=== PATIENT | female | born 1930 | race Caucasian/White ===

== ENCOUNTER 2016-10-06 16:41 | Inpatient (IN) | payer MEDICARE, OTHER ==
[~2016-10-06] VITALS: Ht 144.8 cm; Wt 86.2 kg
[2016-10-06] MEDS ORDERED: DIPHTH,PERTUSS(ACELL),TET TOX 0.5 ML DISP.SYRIN. VAX IM ONE (17:00)
[2016-10-06] MEDS ORDERED: LIDOCAINE 1% / SOD BICARB 8.4% 20 ML VIAL. IJ ONE (17:00)
[2016-10-06 17:18] LABS: BASO % 1 % (0-3); EOS % 2 % (0-3); HEMATOCRIT 26.6 % (36.0-47.0); HEMOGLOBIN 8.6 g/dL (12.0-15.5); LYMPH # 1.2 x10^3/uL (1.0-4.8); LYMPH % 23 % (24-48); MEAN CORPUSCULAR HEMOGLOBIN 30 pg (25-35); MEAN CORPUSCULAR HGB CONC 32 g/dL (31-37); MEAN CORPUSCULAR VOLUME 92 fL (79-100); MONO % 10 % (0-9); NEUT % 64 % (31-73); PLATELET COUNT 232 x10^3/uL (140-400); RED CELL DISTRIBUTION WIDTH 14.9 % (11.5-14.5); WHITE BLOOD COUNT 5.2 x10^3/uL (4.0-11.0)
[2016-10-06 17:27] LABS: PROTHROMBIN TIME PATIENT 12.5 SEC (11.7-14.0)
--- NOTE | 2016-10-06 17:28 | RAD ---
PROCEDURE Head and cervical spine CT without contrast. HISTORY Fall from standing. TECHNIQUE Computed tomographic images of the head and cervical spine were obtained without contrast. One or more of the following individualized dose reduction techniques were utilized for this examination: 1. Automated exposure control; 2. Adjustment of the mA and/or kV according to patient size; 3. Use of iterative reconstruction technique. COMPARISON None. FINDINGS Head: There is no acute or subacute hemorrhage. There is no mass effect or midline shift. There is no hydrocephalus. 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 There are scattered areas of hypodensity throughout the cerebral white matter, likely due to chronic small vessel disease. There is cerebral atrophy with compensatory enlargement of the ventricles. There are findings consistent with lens surgery. 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 The mastoid air cells are clear. There is a suspected soft tissue laceration within the right frontal scalp. No foreign body is seen. Cervical spine: There is mild cervical kyphosis and minimal listhesis at multiple levels. There is degenerative endplate remodeling with disc space narrowing, osteophytosis and Schmorl's node formation predominately at C3-C4, C5-C6 and C6-C7. There is facet arthropathy at multiple levels, described in detail below. There is a chronic ununited osteophyte along the posterior left C4-C5 facet. No acute fracture is seen. There is calcified plaque within the carotid bifurcations. There is calcified plaque within the aortic arch great vessels. There is pulmonary emphysema. At C2-C3, there is endplate remodeling. There is moderate left facet arthropathy. There is mild left foraminal stenosis. At C3-C4, there is a disc bulge and endplate osteophytosis. There is mild bilateral facet arthropathy. There is uncovertebral arthropathy. There is moderate bilateral foraminal stenosis. At C4-C5, there is a disc bulge and endplate remodeling. There is mild left facet arthropathy. There is left uncovertebral arthropathy. There is mild left foraminal stenosis. At C5-C6, there is a broad-based posterior central disc protrusion superimposed on a disc bulge and endplate osteophytosis. There is mild facet arthropathy. There is uncovertebral arthropathy. There is moderate bilateral foraminal stenosis. There is mild central canal stenosis. At C6-C7, there is a disc bulge and endplate osteophytosis. There is uncovertebral arthropathy. There is mild right and moderate left foraminal stenosis. IMPRESSION 1. Suspected right frontal scalp laceration. There is no evidence of a retained foreign body or underlying fracture or acute intracranial finding. 2. Scattered areas of hypodensity within the cerebral white matter, likely due to chronic small vessel disease. 3. 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 4. Cerebral volume loss. 5. 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 Electronically signed by: Rae Welch (Oct 06, 2016 17:26:12)
[2016-10-06] MEDS ORDERED: IV NORMAL SALINE 500ML BAG 500 ML IV ONE (17:45)
[2016-10-06] MEDS ORDERED: IV NORMAL SALINE 1000ML BAG 1,000 ML IV ONE (20:00)
[2016-10-06] MEDS ORDERED: ONDANSETRON PF 4 MG/2 ML VIAL. IV PRN (20:00)
--- NOTE | 2016-10-06 20:06 | PHYS DOC ---
Past Medical History Past Medical History: CAD, Diabetes-Type II, Hypertension, Hypothyroid Past Surgical History: Angioplasty, Appendectomy, Coronary Bypass Surgery, Other Additional Past Surgical Histo: STENT PLACEMENT Alcohol Use: None Drug Use: None Adult General Chief Complaint Chief Complaint: LACERATION/AVULSION HPI HPI This is an 86-year-old female who states she was out in her garden today and had a fall from standing height in which she fell on her face and scraped her right side of the face with a rock and has a extensive laceration extending from her right forehead down to her right cheek. She does states she had some loss of consciousness that was minimal C-collar was placed on the patient upon arrival. A trauma alert was made. Patient does take aspirin daily but is not on any other blood thinners. She does report that she's had worsening shortness of breath for the last week and has seen Dr. Arellano in the office who found her to have a relatively low O2 saturation in the mid 80s. Her Lasix dose has been recently increased. She does report she has had some worsening shortness of breath with minimal exertion for the past week and has had another fall within the last several weeks that she attributes this to her breathing. Upon arrival, the patient is requiring supplemental oxygen which is not normal for her. She denies any chest pain. She denies any significant headache. Review of Systems Review of Systems Constitutional: Denies fever or chills [] Eyes: Denies change in visual acuity, redness, or eye pain [] HENT: Denies nasal congestion or sore throat [] Respiratory: Denies cough, has shortness of breath [] Cardiovascular: No additional information not addressed in HPI [] GI: Denies abdominal pain, nausea, vomiting, bloody stools or diarrhea [] : Denies dysuria or hematuria [] Musculoskeletal: Denies back pain or joint pain [] Integument: Denies rash or skin lesions [] Neurologic: Denies headache, focal weakness or sensory changes [] Endocrine: Denies polyuria or polydipsia [] Current Medications Current Medications Current Medications Medications (Trade) Dose Ordered Sig/Aquiles Start Time Stop Time Status Last Admin Dose Admin Diphtheria/ Tetanus/Acell Pertussis 0.5 ml 0.5 ml ONCE ONCE 10/06/16 17:00 10/06/16 17:01 DC 10/06/16 17:49 0.5 ML Lidocaine/Sodium Bicarbonate (Buffered Lidocaine 1%) 20 ml 1X ONCE 10/06/16 17:00 10/06/16 17:01 DC 10/06/16 17:50 20 ML Sodium Chloride (Iv Sodium Chloride 0.9% 500ml Bag) 500 ml @ 500 mls/hr 1X ONCE 10/06/16 17:45 10/06/16 18:44 DC 10/06/16 17:51 500 MLS/HR Allergies Allergies Allergies Coded Allergies Type Severity Reaction Last Updated Verified No Known Drug Allergies 04/07/15 No Physical Exam Physical Exam Constitutional: Well developed, well nourished, no acute distress, non-toxic appearance. [] HENT: Normocephalic, large linear facial laceration extending from forehead to the cheek that is open at two separate points with the bleeding controlled, bilateral external ears normal, oropharynx moist, no oral exudates, nose normal. [] Eyes: PERRLA, EOMI, conjunctiva normal, no discharge. [] Neck: Normal range of motion, no tenderness, supple, no stridor. [] Cardiovascular:Heart rate regular rhythm, no murmur [] Lungs & Thorax: Bilateral breath sounds clear to auscultation [] Abdomen: Bowel sounds normal, soft, no tenderness, no masses, no pulsatile masses. [] Skin: Warm, dry, no erythema, no rash. [] Back: No tenderness, no CVA tenderness. [] Extremities: No tenderness, no cyanosis, no clubbing, ROM intact, no edema. [] Neurologic: Alert and oriented X 3, normal motor function, normal sensory function, no focal deficits noted. [] Psychologic: Affect normal, judgement normal, mood normal. [] Current Patient Data Vital Signs Vital Signs Date Time Temp Pulse Resp B/P Pulse Ox O2 Delivery O2 Flow Rate FiO2 10/06/16 19:00 66 17 133/53 94 10/06/16 17:30 Room Air 10/06/16 17:00 2 10/06/16 16:55 97.8 97.8 Lab Values Laboratory Tests Test 10/06/16 16:57 White Blood Count 5.2x10^3/uL (4.0-11.0) Red Blood Count 2.90x10^6/uL (3.50-5.40) L Hemoglobin 8.6g/dL (12.0-15.5) L Hematocrit 26.6% (36.0-47.0) L Mean Corpuscular Volume 92fL (79-100) Mean Corpuscular Hemoglobin 30pg (25-35) Mean Corpuscular Hemoglobin Concent 32g/dL (31-37) Red Cell Distribution Width 14.9% (11.5-14.5) H Platelet Count 232x10^3/uL (140-400) Neutrophils (%) (Auto) 64% (31-73) Lymphocytes (%) (Auto) 23% (24-48) L Monocytes (%) (Auto) 10% (0-9) H Eosinophils (%) (Auto) 2% (0-3) Basophils (%) (Auto) 1% (0-3) Neutrophils # (Auto) 3.3x10^3uL (1.8-7.7) Lymphocytes # (Auto) 1.2x10^3/uL (1.0-4.8) Monocytes # (Auto) 0.5x10^3/uL (0.0-1.1) Eosinophils # (Auto) 0.1x10^3/uL (0.0-0.7) Basophils # (Auto) 0.0x10^3/uL (0.0-0.2) Prothrombin Time 12.5SEC (11.7-14.0) Prothrombin Time INR 1.0 (0.8-1.1) Sodium Level 134mmol/L (136-145) L Potassium Level 3.8mmol/L (3.5-5.1) Chloride Level 96mmol/L (98-107) L Carbon Dioxide Level 29mmol/L (21-32) Anion Gap 9 (6-14) Blood Urea Nitrogen 47mg/dL (7-20) H Creatinine 1.9mg/dL (0.6-1.0) H Estimated GFR (Cockcroft-Gault) 25.1 Glucose Level 191mg/dL (70-99) H Calcium Level 9.9mg/dL (8.5-10.1) Troponin I Quantitative < 0.017ng/mL (0.000-0.055) MQ-Fbj-E-Type Natriuretic Peptide 8182pg/mL (0-449) H Laboratory Tests 10/06/16 16:57 Laboratory Tests 10/06/16 16:57 EKG EKG EKG as interpreted by va shows a sinus rhythm with a rate of 67 bpm. There are no obvious ischemic findings. There is a leftward axis. QTc interval slightly prolonged at 466 ms. Radiology/Procedures Radiology/Procedures PROCEDURE Head and cervical spine CT without contrast. HISTORY Fall from standing. TECHNIQUE Computed tomographic images of the head and cervical spine were obtained without contrast. One or more of the following individualized dose reduction techniques were utilized for this examination: 1. Automated exposure control; 2. Adjustment of the mA and/or kV according to patient size; 3. Use of iterative reconstruction technique. COMPARISON None. FINDINGS Head: There is no acute or subacute hemorrhage. There is no mass effect or midline shift. There is no hydrocephalus. 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 There are scattered areas of hypodensity throughout the cerebral white matter, likely due to chronic small vessel disease. There is cerebral atrophy with compensatory enlargement of the ventricles. There are findings consistent with lens surgery. 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 The mastoid air cells are clear. There is a suspected soft tissue laceration within the right frontal scalp. No foreign body is seen. Cervical spine: There is mild cervical kyphosis and minimal listhesis at multiple levels. There is degenerative endplate remodeling with disc space narrowing, osteophytosis and Schmorl's node formation predominately at C3-C4, C5-C6 and C6-C7. There is facet arthropathy at multiple levels, described in detail below. There is a chronic ununited osteophyte along the posterior left C4-C5 facet. No acute fracture is seen. There is calcified plaque within the carotid bifurcations. There is calcified plaque within the aortic arch great vessels. There is pulmonary emphysema. At C2-C3, there is endplate remodeling. There is moderate left facet arthropathy. There is mild left foraminal stenosis. At C3-C4, there is a disc bulge and endplate osteophytosis. There is mild bilateral facet arthropathy. There is uncovertebral arthropathy. There is moderate bilateral foraminal stenosis. At C4-C5, there is a disc bulge and endplate remodeling. There is mild left facet arthropathy. There is left uncovertebral arthropathy. There is mild left foraminal stenosis. At C5-C6, there is a broad-based posterior central disc protrusion superimposed on a disc bulge and endplate osteophytosis. There is mild facet arthropathy. There is uncovertebral arthropathy. There is moderate bilateral foraminal stenosis. There is mild central canal stenosis. At C6-C7, there is a disc bulge and endplate osteophytosis. There is uncovertebral arthropathy. There is mild right and moderate left foraminal stenosis. IMPRESSION 1. Suspected right frontal scalp laceration. There is no evidence of a retained foreign body or underlying fracture or acute intracranial finding. 2. Scattered areas of hypodensity within the cerebral white matter, likely due to chronic small vessel disease. 3. 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 4. Cerebral volume loss. 5. 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 One view of the chest as interpreted by me shows a hazy left-sided cardiac silhouette that could be consistent with infiltrate but no other obvious findings as interpreted by me. Course & Med Decision Making Course & Med Decision Making Pertinent Labs and Imaging studies reviewed. (See chart for details) This 86-year-old female with worsening dyspnea for the last several days and a recent fall will be admitted to the hospital as she desaturates when she ambulates into the low 70s. A dose of IV Lasix was given. Her chest film does show a hazy area that could be an infiltrate. I ordered several doses of antibiotics for this. I discussed her case and the need for admission with the hospitalist, Dr. Farias, who agreed to admit with pulmonology consult. A cardiology consult will also be placed. Her facial laceration was repaired with 12 5-0 sutures with excellent approximation. Her BNP is elevated in the 8000 range which is consistent with mild CHF exacerbation. Dragon Disclaimer Dragon Disclaimer This electronic medical record was generated, in whole or in part, using a voice recognition dictation system. Laceration Repair Lac Repair Indication: Facial laceration Procedure: The patient was placed in the appropriate position and 1% lidocaine was infiltrated at the wound site. The area was then cleansed with normal saline The laceration was then closed with simple interrupted technique with 12 5-0 nylon sutures. The wound area was then dressed with gauze. Total repaired wound length: 6.0 cm. Other Items: None The patient tolerated the procedure well. Complications: None. Departure Departure Impression: Primary Impression: Hypoxia Additional Impressions: Fall Head injury CHF exacerbation Disposition: 09 ADMITTED INPATIENT Admitting Physician: Ramakrishna Farias Condition: STABLE Referrals: CIERRA ARELLANO MD (PCP) Problem Qualifiers TAMMY CONTRERAS DO Oct 06, 2016 20:06
[2016-10-06] MEDS ORDERED: AZITHROMYCIN 500 MG in IV NORMAL SALINE 250ML 250 ML IV ONE (20:45)
[2016-10-06] MEDS ORDERED: AZITHRMYCN 500MG IVPB FOR OMNI 250 ML IV ONE (21:00)
[2016-10-06] MEDS ORDERED: CEFTRIAXONE 1GM IVPB FOR OMNI 50 ML IV ONE (21:00)
[2016-10-06] MEDS ORDERED: FUROSEMIDE 40 MG/4 ML VIAL. IVP ONE (21:15)
[2016-10-06 21:57] VITALS: BP 122/62
--- NOTE | 2016-10-06 22:29 | ACF ---
Admission Forms Criteria TELEMETRY CARE Telemetry Admission Guidelines (Place 'X' for any and all applicable criteria): Admission to telemetry [A] may be indicated for ANY ONE of the following(1)(2)(3 )(4)(5): [ ]I. Cardiac disease, including ANY ONE of the following (9)(10)(11)(12)(13 ): [ ]a) Postacute PA [ ]b) Low-risk patients with ST-segment elevation PA who have undergone successful percutaneous coronary intervention [ ]c) Unstable angina [ ]d) Suspected PA (until it is ruled out) [ ]e) Post cardiac surgery (first 48 to 72 hours unless complications occur) [ ]f) Acute arrhythmias (including significant tachycardia or bradycardia) [B] [ ]g) Firing of an implantable cardioverter defibrillator [C] [ ]h) Suspected pacemaker or implantable cardioverter defibrillator malfunction (10) [ ]i) New administration or adjustment of an antiarrhythmic drug [D ] [ ]j) Child admitted for acute congestive heart failure [ ]j) Long QT syndrome [ ]k) Advanced heart block (eg, second-degree Mobitz type II, third- degree heart block) [ ]l) Acute myocarditis or pericarditis [ ]m) Short-term (ambulatory or inpatient) monitoring after a cardiac procedure as indicated by ANY ONE of the following [E]: [ ]i) Electrophysiologic studies [ ]ii) Percutaneous coronary intervention with stent placement [ ]iii) Pacemaker placement with cardiac conduction defect [ ]iv) Implantable cardiac defibrillator placement [ ]II. Drug overdose or poisoning with substance that causes arrhythmias or QT prolongation (eg, phenothiazines, sympathomimetic agents, cyclic antidepressants, digitalis, antiarrhythmic drugs)(15) [ ]III. Short-term (ambulatory or inpatient) monitoring after therapeutic or diagnostic procedure requiring conscious sedation or anesthesia (eg, endoscopy, elective cardioversion) [X]IV. Acute cerebrovascular even[F](18) [ ]V. Massive blood transfusion (eg, at least 10 units of packed red blood cells in 24 hours) [ ]. Variceal bleeding after endoscopy, sclerotherapy, or IV vasopressin [ ]VII. Uncorrected electrolyte abnormalities associated with an increased risk of dangerous arrhythmia [G]; examples include [ ]a) Hyperkalemia with attributable ECG changes [ ]b) Potassium greater than 6.5 mmol/L (mEq/L) in a patient without history of chronic renal disease [ ]c) Prolonged QT attributed to hypokalemia, hypomagnesemia, or hypocalcemia [ ]VIII.Unexplained syncope or other neurologic event suspected of being due to arrhythmia due to a finding that increases risk; examples include(19)(20)(21): [ ]a) High-risk ECG findings (eg, bifascicular block, bradycardia, abnormal QT interval, ventricular pre- excitation) [ ]b) History of previous syncope due to arrhythmia [ ]c) Abnormal ventricular function (eg, reduced ejection fraction ) [ ]d) Exertional or supine syncope [ ]e) Concerning syncope characteristics (eg, sudden loss of consciousness without prodrome) [ ]f) Family history of sudden [ ]g) Use of arrhythmogenic medication [ ]h) Suspected cardiac ischemia [ ]i) Known channelopathy (eg, long QT syndrome, Brugada syndrome, or catecholaminergic paroxysmal ventricular tachycardia) [ ]j) Known structural heart disease (eg, hypertrophic cardiomyopathy , severe valvular disease) [ ]k) Palpitations preceding syncope The original [employer] content created by [employer] has been revised. The portions of the content which have been revised are identified through the use of italic text or in bold, and [facility] has neither reviewed nor approved the modified material. All other unmodified content is copyright [employer]. Please see references footnoted in the original [employer] edition 2016 Admission Criteria Met?: Yes ASH TRIANA Oct 06, 2016 22:29
[2016-10-06 23:34] VITALS: BP 102/51
[2016-10-07] MEDS: IV NORMAL SALINE 1000ML BAG 1,000 ML IV SCH ×3 (00:05→11:59)
[2016-10-07 03:00] VITALS: BP 95/46
[2016-10-07 04:24] LABS: BASO % 0 % (0-3); EOS % 1 % (0-3); HEMATOCRIT 24.3 % (36.0-47.0); HEMOGLOBIN 8.2 g/dL (12.0-15.5); LYMPH # 1.8 x10^3/uL (1.0-4.8); LYMPH % 24 % (24-48); MEAN CORPUSCULAR HEMOGLOBIN 30 pg (25-35); MEAN CORPUSCULAR HGB CONC 34 g/dL (31-37); MEAN CORPUSCULAR VOLUME 90 fL (79-100); MONO % 8 % (0-9); NEUT % 66 % (31-73); PLATELET COUNT 203 x10^3/uL (140-400); RED BLOOD COUNT 2.69 x10^6/uL (3.50-5.40); RED CELL DISTRIBUTION WIDTH 14.4 % (11.5-14.5); WHITE BLOOD COUNT 7.5 x10^3/uL (4.0-11.0)
[2016-10-07 04:35] LABS: CALCIUM 9.5 mg/dL (8.5-10.1); CREATININE 1.7 mg/dL (0.6-1.0); GFR 28.6; POTASSIUM 3.7 mmol/L (3.5-5.1)
[2016-10-07] MEDS ORDERED: INSU100V5 IJ (04:47)
[2016-10-07] MEDS ORDERED: NPH,100V SQ ×2 (04:47→04:48)
[2016-10-07] MEDS ORDERED: CHOL100013 PO (04:47)
[2016-10-07] MEDS ORDERED: ASPI81TA2 PO (04:47)
[2016-10-07] MEDS ORDERED: OMEG1CAP61 (04:47)
[2016-10-07] MEDS ORDERED: LOSA100T6 PO (04:48)
[2016-10-07] MEDS ORDERED: ATOR40TA59 PO (04:48)
[2016-10-07] MEDS ORDERED: METO50TA2 PO (04:48)
[2016-10-07] MEDS ORDERED: PIOG30TA3 PO (04:48)
[2016-10-07] MEDS ORDERED: BUME2TAB PO (04:48)
[2016-10-07] MEDS ORDERED: POTA99TA10 PO (04:48)
[2016-10-07] MEDS ORDERED: AMLO5TAB2 PO (04:48)
[2016-10-07 07:00] VITALS: BP 99/41
--- NOTE | 2016-10-07 08:29 | EKG ---
[facility] [address] [place] [address] Test Date: 2016-10-06 Test Time: 17:35:38 Pat Name: CLATYON LAKE Department: Room: 402 1 Gender: F [employer]: : [id number] Requested By: TAMMY CONTRERAS Order Number: [id number] Reading MD: Ronda Eid Measurements Intervals [place] Rate: 67 P: 49 RI: 154 QRS: -24 QRSD: 116 T: 154 QT: 438 QTc: 466 Interpretive Statements SINUS RHYTHM LEFTWARD AXIS LVH WITH REPOLARIZATION ABNORMALITY Electronically Signed On 10-11-2016 13:03:56 CDT by Ronda Eid
--- NOTE | 2016-10-07 08:38 | PDOC2 ---
MAGDALENE SPIVEY WIRE DRAWING MACHINE OPERATOR 10/07/16 0838: CONSULT Date of Consult Date of Consult DATE: 10/07/16 TIME: 08:32 Reason for Consult Reason for Consult: Trauma Referring Physician Referring Physician: ER Identification/Chief Complaint Chief Complaint fall Source Source: Chart review, Patient History of Present Illness Reason for Visit: Yesterday pulling weeds in flower bed, dizzy and fell, hit head on a rock. Significant amount of bleeding. Denies any LOC. Currently denies any pain or nausea. Hoping to go home soon. Reports fell once a few weeks ago in her house. She does report increased SOA over last few weeks Past Medical History Cardiovascular: CAD, CHF, HTN, MA Endocrine: Diabetes, Hypothyroidism Past Surgical History Past Surgical History: Appendectomy, CABG Family History Family History: Other (nonocontributory to current illness ) Social History No ALCOHOL: none Drugs: None Lives: with Family Current Problem List Problem List Problems Medical Problems: (1) CHF exacerbation Status: Acute (2) Fall Status: Acute (3) Head injury Status: Acute (4) Hypoxia Status: Acute Current Medications Current Medications Current Medications Lidocaine/Sodium Bicarbonate (Buffered Lidocaine 1%) 20 ml 1X ONCE IJ Last administered on 10/06/16 17:50; Start 10/06/16 at 17:00; Stop 10/06/16 at 17:01 ; Status DC Diphtheria/ Tetanus/Acell Pertussis 0.5 ml 0.5 ml ONCE ONCE VAX IM Last administered on 10/06/16 17:49; Start 10/06/16 at 17:00; Stop 10/06/16 at 17:01 ; Status DC Sodium Chloride 500 ml @ 500 mls/hr 1X ONCE IV Last administered on 17:51; Start 10/06/16 at 17:45; Stop 10/06/16 at 18:44; Status DC Sodium Chloride (Iv Sodium Chloride 0.9% 1000ml Bag) 1,000 ml @ 1,000 mls/hr 1X ONCE IV ; Start 10/06/16 at 20:00; Stop 10/06/16 at 20:59; Status DC Ondansetron HCl 4 mg 4 mg PRN Q8HRS PRN IV NAUSEA/VOMITING; Start 10/06/16 at 20:00; Stop 10/07/16 at 19:59 Sodium Chloride 1,000 ml @ 125 mls/hr Q8H IV Last administered on 10/07/16 00 :05; Start 10/06/16 at 19:59; Stop 10/07/16 at 19:58 Ceftriaxone Sodium 1 gm/ Sodium Chloride 50 ml @ 100 mls/hr Q24H IV ; Start at 21:00 Azithromycin/ Sodium Chloride (Zithromax/Iv Sodium Chloride 0.9% 250ml) 250 ml @ 250 mls/hr 1X ONCE IV ; Start 10/06/16 at 20:45; Stop 10/06/16 at 21:44; Status UNV Furosemide 40 mg 40 mg 1X ONCE IVP ; Start 10/06/16 at 21:15; Stop 10/06/16 at 21:16; Status DC Azithromycin 250 ml @ 250 mls/hr 1X ONCE IV Last administered on 10/07/16 01 :19; Start 10/06/16 at 21:00; Stop 10/06/16 at 21:59; Status DC Ceftriaxone Sodium (Rocephin 1gm Ivpb For Omni) 50 ml @ 100 mls/hr 1X ONCE IV Last administered on 10/07/16 00:05; Start 10/06/16 at 21:00; Stop 10/06/16 at 21:29; Status DC Active Scripts Active Reported Potassium 99 Mg Tablet 90 Mg PO DAILY Atorvastatin Calcium 40 Mg Tablet 1 Tab PO QHS Amlodipine Besylate 5 Mg Tablet 5 Mg PO DAILY Pioglitazone Hcl 30 Mg Tablet 30 Mg PO DAILY Metoprolol Tartrate 50 Mg Tablet 50 Mg PO BID Losartan Potassium 100 Mg Tablet 100 Mg PO DAILY Bumetanide 2 Mg Tablet 2 Mg PO DAILY Humulin N (Nph, Human Insulin Isophane) 100 Unit/1 Ml Vial 8 Unit SQ QHS Humulin N (Nph, Human Insulin Isophane) 100 Unit/1 Ml Vial 6 Unit SQ DAILYAC Humulin R (Insulin Regular, Human) 100 Unit/1 Ml Vial 8 Unit IJ DAILYBFRSUP Aspirin 81 Mg Tab.chew 1 Tab PO DAILY Vitamin D (Cholecalciferol (Vitamin D3)) 1,000 Unit Capsule 2 Cap PO DAILY Fish Oil 1,200 Mg Softgel (Ingalls-3S/Dha/Epa/Fish Oil) 1 Each Capsule Allergies Allergies: Coded Allergies: No Known Drug Allergies (Unverified , 04/07/15) ROS General: No: Chills, Other (fevers) PSYCHOLOGICAL ROS: No: Anxiety, Depression Eyes: No Blurry vision, No Double vision HEENT: No: Heacaches, Hearing change Hematological and Lymphatic: YES: Bleeding Problems (head lac on admission ), No: Blood Clots Respiratory: No: Cough, Shortness of breath Cardiovascular: No Chest Pain, No Palpitations Gastrointestinal: No Abdominal Pain, No Nausea, No Vomiting Genitourinary: No Dysuria, No Hematuria Musculoskeletal: No Joint Pain, No Muscle Pain Neurological: Yes Impaired Coord/balance, No Confusion, No Numbness/Tingling Skin: No Pruritus, No Rash Physical Exam General: Alert, Oriented X3, Cooperative, No acute distress HEENT: Other (head lac with sutures in place, no bleeding ) Lungs: Clear to auscultation, Normal air movement Heart: Regular rate, Normal S1, Normal S2 Abdomen: Normal bowel sounds, Soft, No tenderness, No masses Extremities: No clubbing, No cyanosis Skin: No rashes, No breakdown Neuro: Normal speech, Sensation intact Psych/Mental Status: Mental status NL, Mood NL MUSCULOSKELETAL: No deformity, No swelling Vitals VITALS Vital Signs Date Time Temp Pulse Resp B/P Pulse Ox O2 Delivery O2 Flow Rate FiO2 10/07/16 07:00 97.9 77 18 99/41 89 Room Air 97.9 10/07/16 03:00 2.0 Labs Labs Laboratory Tests Test 10/06/16 16:57 10/06/16 21:48 10/07/16 03:40 10/07/16 03:43 White Blood Count 5.2x10^3/uL (4.0-11.0) 7.5x10^3/uL (4.0-11.0) Red Blood Count 2.90x10^6/uL (3.50-5.40) 2.69x10^6/uL (3.50-5.40) Hemoglobin 8.6g/dL (12.0-15.5) 8.2g/dL (12.0-15.5) Hematocrit 26.6% (36.0-47.0) 24.3% (36.0-47.0) Mean Corpuscular Volume 92fL (79-100) 90fL (79-100) Mean Corpuscular Hemoglobin 30pg (25-35) 30pg (25-35) Mean Corpuscular Hemoglobin Concent 32g/dL (31-37) 34g/dL (31-37) Red Cell Distribution Width 14.9% (11.5-14.5) 14.4% (11.5-14.5) Platelet Count 232x10^3/uL (140-400) 203x10^3/uL (140-400) Neutrophils (%) (Auto) 64% (31-73) 66% (31-73) Lymphocytes (%) (Auto) 23% (24-48) 24% (24-48) Monocytes (%) (Auto) 10% (0-9) 8% (0-9) Eosinophils (%) (Auto) 2% (0-3) 1% (0-3) Basophils (%) (Auto) 1% (0-3) 0% (0-3) Neutrophils # (Auto) 3.3x10^3uL (1.8-7.7) 5.0x10^3uL (1.8-7.7) Lymphocytes # (Auto) 1.2x10^3/uL (1.0-4.8) 1.8x10^3/uL (1.0-4.8) Monocytes # (Auto) 0.5x10^3/uL (0.0-1.1) 0.6x10^3/uL (0.0-1.1) Eosinophils # (Auto) 0.1x10^3/uL (0.0-0.7) 0.1x10^3/uL (0.0-0.7) Basophils # (Auto) 0.0x10^3/uL (0.0-0.2) 0.0x10^3/uL (0.0-0.2) Prothrombin Time 12.5SEC (11.7-14.0) Prothromb Time International Ratio 1.0 (0.8-1.1) Sodium Level 134mmol/L (136-145) 137mmol/L (136-145) Potassium Level 3.8mmol/L (3.5-5.1) 3.7mmol/L (3.5-5.1) Chloride Level 96mmol/L (98-107) 100mmol/L (98-107) Carbon Dioxide Level 29mmol/L (21-32) 31mmol/L (21-32) Anion Gap 9 (6-14) 6 (6-14) Blood Urea Nitrogen 47mg/dL (7-20) 38mg/dL (7-20) Creatinine 1.9mg/dL (0.6-1.0) 1.7mg/dL (0.6-1.0) Estimated GFR (Cockcroft-Gault) 25.1 28.6 Glucose Level 191mg/dL (70-99) 197mg/dL (70-99) Calcium Level 9.9mg/dL (8.5-10.1) 9.5mg/dL (8.5-10.1) Troponin I Quantitative < 0.017ng/mL (0.000-0.055) MF-Gng-E-Type Natriuretic Peptide 8182pg/mL (0-449) Glucose (Fingerstick) 157mg/dL (70-99) Test 10/07/16 07:17 Glucose (Fingerstick) 164mg/dL (70-99) Laboratory Tests Test 10/06/16 16:57 10/06/16 21:48 10/07/16 03:40 10/07/16 03:43 White Blood Count 5.2x10^3/uL (4.0-11.0) 7.5x10^3/uL (4.0-11.0) Red Blood Count 2.90x10^6/uL (3.50-5.40) 2.69x10^6/uL (3.50-5.40) Hemoglobin 8.6g/dL (12.0-15.5) 8.2g/dL (12.0-15.5) Hematocrit 26.6% (36.0-47.0) 24.3% (36.0-47.0) Mean Corpuscular Volume 92fL (79-100) 90fL (79-100) Mean Corpuscular Hemoglobin 30pg (25-35) 30pg (25-35) Mean Corpuscular Hemoglobin Concent 32g/dL (31-37) 34g/dL (31-37) Red Cell Distribution Width 14.9% (11.5-14.5) 14.4% (11.5-14.5) Platelet Count 232x10^3/uL (140-400) 203x10^3/uL (140-400) Neutrophils (%) (Auto) 64% (31-73) 66% (31-73) Lymphocytes (%) (Auto) 23% (24-48) 24% (24-48) Monocytes (%) (Auto) 10% (0-9) 8% (0-9) Eosinophils (%) (Auto) 2% (0-3) 1% (0-3) Basophils (%) (Auto) 1% (0-3) 0% (0-3) Neutrophils # (Auto) 3.3x10^3uL (1.8-7.7) 5.0x10^3uL (1.8-7.7) Lymphocytes # (Auto) 1.2x10^3/uL (1.0-4.8) 1.8x10^3/uL (1.0-4.8) Monocytes # (Auto) 0.5x10^3/uL (0.0-1.1) 0.6x10^3/uL (0.0-1.1) Eosinophils # (Auto) 0.1x10^3/uL (0.0-0.7) 0.1x10^3/uL (0.0-0.7) Basophils # (Auto) 0.0x10^3/uL (0.0-0.2) 0.0x10^3/uL (0.0-0.2) Prothrombin Time 12.5SEC (11.7-14.0) Prothromb Time International Ratio 1.0 (0.8-1.1) Sodium Level 134mmol/L (136-145) 137mmol/L (136-145) Potassium Level 3.8mmol/L (3.5-5.1) 3.7mmol/L (3.5-5.1) Chloride Level 96mmol/L (98-107) 100mmol/L (98-107) Carbon Dioxide Level 29mmol/L (21-32) 31mmol/L (21-32) Anion Gap 9 (6-14) 6 (6-14) Blood Urea Nitrogen 47mg/dL (7-20) 38mg/dL (7-20) Creatinine 1.9mg/dL (0.6-1.0) 1.7mg/dL (0.6-1.0) Estimated GFR (Cockcroft-Gault) 25.1 28.6 Glucose Level 191mg/dL (70-99) 197mg/dL (70-99) Calcium Level 9.9mg/dL (8.5-10.1) 9.5mg/dL (8.5-10.1) Troponin I Quantitative < 0.017ng/mL (0.000-0.055) AD-Kcb-T-Type Natriuretic Peptide 8182pg/mL (0-449) Glucose (Fingerstick) 157mg/dL (70-99) Test 10/07/16 07:17 Glucose (Fingerstick) 164mg/dL (70-99) Images Images reviewed Assessment/Plan Assessment/Plan trauma, fall with head injury, head lac requiring sutures CHF exacerbation, DM MED, Cr 1.7 improved from yesterday hypoxia cards and pulm consults pending no acute surgical recs TAMMY SPRINGER MD 10/07/16 1228: CONSULT Allergies Allergies: Coded Allergies: No Known Drug Allergies (Unverified , 04/07/15) Assessment/Plan Assessment/Plan Reviewed, agree with above MAGDALENE SPIVEY WIRE DRAWING MACHINE OPERATOR Oct 07, 2016 08:38 TAMMY SPRINGER MD Oct 07, 2016 12:28
[2016-10-07] MEDS ORDERED: POTASSIUM PO SCH (09:00)
--- NOTE | 2016-10-07 09:20 | RAD ---
Portable chest, 10/06/2016: History: Fall Comparison is made to a study from 08/31/2012. There has been a previous median sternotomy. The heart size and pulmonary vascularity are normal. There is calcific plaquing of the aorta. Granulomatous calcifications are present in the right chest. There is scarring over the pulmonary apices. There are minimal left basilar opacities partially obscuring the heart border. The appearance suggests scarring and/or atelectasis. The lungs are otherwise clear. There is no evidence of pleural fluid or pneumothorax. IMPRESSION: 1. Aortic atherosclerosis. 2. Minimal left basilar atelectasis or scarring.
--- NOTE | 2016-10-07 09:26 | PDOC2 ---
TERESA JUNIOR INDUSTRIAL GARAGE SERVICER 10/07/16 0926: CARDIAC CONSULT DATE OF CONSULT Date of Consult DATE: 10/07/16 TIME: 09:14 REASON FOR CONSULT Reason for Consult: CHF exacerbation REFERRING PHYSICIAN Referring Physician: Tamera SOURCE Source: Chart review HISTORY OF PRESENT ILLNESS HISTORY OF PRESENT ILLNESS This is a pleasant 87 yo female admitted for complains of fall and right facial injury. Reports that she fell few weeks ago after tripping on a mat. No injury at that time. She did fall again yesterday while weeding around 4 PM and was close to a downward slope. She noted herself falling but she was no sure why that she may have lost her balance but denies getting dizzy. She hit her right face to a brick and was yelling for her daughter for help. Denies any palpitations, lightheadedness, chest pain and SOA. She ate lunch at 2 PM and she did use her insulin as well. She verbalized that she has not been drinking adequately but at the same time she also has been feeling SOA with notable orthopnea since Thursday. She was started on Bumex Thursday and she started diuresing very well and her SOA got better. She lost about 7 pounds since that time. Upon admission she was noted to be hypoxic with O2 sat in the 80s but immediately better after supplemental O2. Currently she is doing well and denies any discomfort. 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) Renal/: Chronic renal insuff Endocrine: Diabetes (2), Hypothyroidism PAST SURGICAL HISTORY Past Surgical History: Appendectomy, CABG (x3 in 2000), Other (external iliac stents) FAMILY HISTORY Family History: Diabetes SOCIAL HISTORY Smoke: No (quit remotely) ALCOHOL: none Drugs: None Lives: Alone CURRENT MEDICATIONS CURRENT MEDICATIONS Current Medications Medications (Trade) Dose Ordered Sig/Aquiles Route PRN Reason Start Time Stop Time Status Last Admin Dose Admin Lidocaine/Sodium Bicarbonate (Buffered Lidocaine 1%) 20 ml 1X ONCE IJ 10/06/16 17:00 10/06/16 17:01 DC 10/06/16 17:50 Diphtheria/ Tetanus/Acell Pertussis 0.5 ml 0.5 ml ONCE ONCE VAX IM 10/06/16 17:00 10/06/16 17:01 DC 10/06/16 17:49 Sodium Chloride 500 ml @ 500 mls/hr 1X ONCE IV 10/06/16 17:45 10/06/16 18:44 DC 10/06/16 17:51 Sodium Chloride 1,000 ml @ 125 mls/hr Q8H IV 10/06/16 19:59 10/07/16 19:58 10/07/16 00:05 Azithromycin 250 ml @ 250 mls/hr 1X ONCE IV 10/06/16 21:00 10/06/16 21:59 DC 10/07/16 01:19 Ceftriaxone Sodium (Rocephin 1gm Ivpb For Omni) 50 ml @ 100 mls/hr 1X ONCE IV 10/06/16 21:00 10/06/16 21:29 DC 10/07/16 00:05 ALLERGIES ALLERGIES: Coded Allergies: No Known Drug Allergies (Unverified , 04/07/15) ROS Review of System 14 point ROS evaluated with pertinent positives noted per HPI PHYSICAL EXAM General: Alert, Oriented X3, Cooperative, No acute distress HEENT: Atraumatic, Mucous membr. moist/pink Lungs: Clear to auscultation, Normal air movement Heart: Regular rate (SR with LBBB), Normal S1, Normal S2, Other (3/6 systolic murmur to LLS/VIC border) Abdomen: Soft, No tenderness Extremities: No cyanosis, Other (2+ bilateral LE pitting edema) Skin: No significant lesion Neuro: Normal speech, Sensation intact Psych/Mental Status: Mental status NL, Mood NL MUSCULOSKELETAL: Osteoarthritic changes both hands VITALS VITALS Vital Signs Date Time Temp Pulse Resp B/P Pulse Ox O2 Delivery O2 Flow Rate FiO2 10/07/16 07:00 97.9 77 18 99/41 89 Room Air 97.9 10/07/16 03:00 2.0 LABS Lab: Laboratory Tests Test 10/06/16 16:57 10/06/16 21:48 10/07/16 03:40 10/07/16 03:43 White Blood Count 5.2x10^3/uL (4.0-11.0) 7.5x10^3/uL (4.0-11.0) Red Blood Count 2.90x10^6/uL (3.50-5.40) 2.69x10^6/uL (3.50-5.40) Hemoglobin 8.6g/dL (12.0-15.5) 8.2g/dL (12.0-15.5) Hematocrit 26.6% (36.0-47.0) 24.3% (36.0-47.0) Mean Corpuscular Volume 92fL (79-100) 90fL (79-100) Mean Corpuscular Hemoglobin 30pg (25-35) 30pg (25-35) Mean Corpuscular Hemoglobin Concent 32g/dL (31-37) 34g/dL (31-37) Red Cell Distribution Width 14.9% (11.5-14.5) 14.4% (11.5-14.5) Platelet Count 232x10^3/uL (140-400) 203x10^3/uL (140-400) Neutrophils (%) (Auto) 64% (31-73) 66% (31-73) Lymphocytes (%) (Auto) 23% (24-48) 24% (24-48) Monocytes (%) (Auto) 10% (0-9) 8% (0-9) Eosinophils (%) (Auto) 2% (0-3) 1% (0-3) Basophils (%) (Auto) 1% (0-3) 0% (0-3) Neutrophils # (Auto) 3.3x10^3uL (1.8-7.7) 5.0x10^3uL (1.8-7.7) Lymphocytes # (Auto) 1.2x10^3/uL (1.0-4.8) 1.8x10^3/uL (1.0-4.8) Monocytes # (Auto) 0.5x10^3/uL (0.0-1.1) 0.6x10^3/uL (0.0-1.1) Eosinophils # (Auto) 0.1x10^3/uL (0.0-0.7) 0.1x10^3/uL (0.0-0.7) Basophils # (Auto) 0.0x10^3/uL (0.0-0.2) 0.0x10^3/uL (0.0-0.2) Prothrombin Time 12.5SEC (11.7-14.0) Prothromb Time International Ratio 1.0 (0.8-1.1) Sodium Level 134mmol/L (136-145) 137mmol/L (136-145) Potassium Level 3.8mmol/L (3.5-5.1) 3.7mmol/L (3.5-5.1) Chloride Level 96mmol/L (98-107) 100mmol/L (98-107) Carbon Dioxide Level 29mmol/L (21-32) 31mmol/L (21-32) Anion Gap 9 (6-14) 6 (6-14) Blood Urea Nitrogen 47mg/dL (7-20) 38mg/dL (7-20) Creatinine 1.9mg/dL (0.6-1.0) 1.7mg/dL (0.6-1.0) Estimated GFR (Cockcroft-Gault) 25.1 28.6 Glucose Level 191mg/dL (70-99) 197mg/dL (70-99) Calcium Level 9.9mg/dL (8.5-10.1) 9.5mg/dL (8.5-10.1) Troponin I Quantitative < 0.017ng/mL (0.000-0.055) JW-Deu-A-Type Natriuretic Peptide 8182pg/mL (0-449) Glucose (Fingerstick) 157mg/dL (70-99) Test 10/07/16 07:17 Glucose (Fingerstick) 164mg/dL (70-99) STRESS TEST STRESS TEST Conclusion 1. No evidence of stress induced EKG changes 2. Normal myocardial perfusion at stress/rest 3. Normal EF with stress > 70% 4. Low risk study DATE: 01/01/16 1504 ASSESSMENT/PLAN ASSESSMENT/PLAN 1. Mechanical fall with right facial contusion/laceration no fractures. Suspicion of presyncope but denies. 2. Acute on chronic diastolic CHF: now compensated. Lost 7 pounds total from [address] start Thursday. 3. 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 Suspect prerenal with CHF and inadequate po fluid intake 4. DM2: hypoglycemia episode could not be rule out with insulin use. 5. Normocytic anemia 8.2. Baseline? May be affecting O2 sat reading in ED. No further deoxygenation. 6. 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 CVA/ TIA past? 7. Hypothyroidism 8. CAD: CABG/stents in the past. Stable. Known LBBB. CP free 9. Accelerated HTN: much improved. 10. PAD: no claudications Recommendations: 1. TTE today. 2. Recieved IV lasix in ED. Continue with po diuretic therapy with hydration maintenance and will restart bumex tomorrow. Would not recommend actos if possible. 3. CMP, Mg, TSH, lipids 4. Check for orthostasis 5. Place on tele monitor. 6. Will decrease metoprolol. 7. Continue with norvasc per BP trend. Will reeval losartan use later. 8. Recommend nephrology consult Problems: DAVEY DENISE MD 10/07/16 2313: CARDIAC CONSULT ALLERGIES ALLERGIES: Coded Allergies: No Known Drug Allergies (Unverified , 04/07/15) ASSESSMENT/PLAN ASSESSMENT/PLAN Pt. seen and examined. AGree with above KNOTTING MACHINE OPERATOR note 86 y.o with LH/dizziness. On exam she is quite frail, and weak. She has some lower ext edema Echo reviewed. CT scan results reviewed. Supportive care for pulmonary HTN. She is sedentary at home, would not benefit from aggressive measures. Will follow along. Problems: TERESA JUNIOR APRN Oct 07, 2016 09:26 DAVEY DENISE MD Oct 07, 2016 23:13
[2016-10-07] MEDS: ASPIRIN CHEWABLE 81 MG TABLET. PO SCH (09:49)
[2016-10-07] MEDS: CHOLECALCIFEROL (VITAMIN D3) 1,000 UNIT TABLET PO SCH (09:49)
[2016-10-07 09:54] LABS: ALBUMIN 2.5 g/dL (3.4-5.0); ALBUMIN/GLOBULIN RATIO 0.6 (1.0-1.7); CALCIUM 9.2 mg/dL (8.5-10.1); CREATININE 1.7 mg/dL (0.6-1.0); GFR 28.6; POTASSIUM 3.6 mmol/L (3.5-5.1); TOTAL BILIRUBIN 0.4 mg/dL (0.2-1.0); TOTAL PROTEIN 6.4 g/dL (6.4-8.2)
[2016-10-07 09:55] LABS: CHOLESTEROL/HDL RATIO 2.9
[2016-10-07] MEDS ORDERED: METOPROLOL TART IMMED RELEASE 50 MG TABLET. PO SCH (10:00)
[2016-10-07] MEDS ORDERED: PIOGLITAZONE 15 MG TABLET. PO SCH (10:00)
[2016-10-07 11:00] VITALS: BP 108/51
--- NOTE | 2016-10-07 11:15 | HP ---
ADMIT DATE: 10/06/2016 CHIEF COMPLAINT: Mechanical fall. HISTORY OF PRESENT ILLNESS AND HOSPITAL COURSE: The patient is an 86-year-old female who was in usual state of health, working in the garden and sustained a significant fall, lacerating the right side of her scalp. She came to the Emergency Room and was found to have an open laceration, which was sutured during Emergency Room evaluation and treatment. She was also found to have low oxygen saturations, which could not be improved with breathing treatments and ER treatment. Chest x-rays showed mild pulmonary congestion and BNP was elevated ____. Due to these findings, the patient was admitted for further evaluation and pulmonary consultation. The patient also had evidence of progressive anemia with hemoglobin of 10.7 approximately one year ago, now 8.6. Again, due to these findings and the patient's low oxygen saturations, she was admitted for further evaluation and consultation by Cardiology and Pulmonary Medicine. PAST MEDICAL HISTORY: Significant for: 1. Hypertension. 2. High cholesterol. 3. Coronary artery disease. 4. Type 2 diabetes. 5. Hypothyroidism. PAST SURGICAL HISTORY: Significant for appendectomy in 1949 and coronary artery bypass graft in 2000. FAMILY HISTORY: Noncontributory. The patient did have paternal grandfather with diabetes. SOCIAL HISTORY: The patient is a former smoker and does not use alcohol. She is and apparently lives alone. ALLERGIES: The patient denies any drug allergies. MEDICATIONS: The patient's medications on admission include Actos 30 mg daily; amlodipine 5 mg daily; Humulin R 8 units with dinner; Synthroid 50 mcg daily; vitamin D 1000 international units daily; aspirin 81 mg daily; fish oil 1200 mg daily; ProAir 2 puffs q. 6 hours p.r.n.; Humulin N 6 units in the morning and 8 units in the evening; atorvastatin 40 mg daily; metoprolol 50 mg b.i.d.; losartan 100 mg daily; potassium over the counter 1 pill daily; trazodone 50 mg at bedtime; metolazone ____ mg Thursday, Thursday and Thursday; Lasix 40 mg 2 tablets daily. REVIEW OF SYSTEMS: The patient was in her usual state of health. She has been having increasing shortness of breath. In the last month, documented O2 sats being somewhat low on last office visit, despite the patient's asymptomatic condition. Of note, please note the patient's Lasix has recently been changed from Lasix to Bumex 2 mg daily and metolazone had been increased from 2.5 Thursday, Thursday and Thursday to daily. PHYSICAL EXAMINATION: GENERAL: This is a well-nourished, mildly obese female, in no apparent distress with well sutured laceration on the right side of the scalp. She is alert and oriented x 3. HEENT: Benign except for laceration. NECK: Supple, without JVD or bruit. CARDIAC: Regular rate and rhythm without murmur. LUNGS: Clear with decreased breath sounds and distant breath sounds. ABDOMEN: Soft and nontender. EXTREMITIES: Showed 2+ pulses without significant edema. NEUROLOGIC: Showed no unilateral findings. ASSESSMENT: 1. Acute on chronic respiratory failure. 2. Acute on chronic diastolic congestive heart failure. 3. Blunt head trauma with laceration. 4. Hypoxia. 5. Coronary artery disease. 6. Type 2 diabetes. 7. Anemia. 8. Acute on chronic renal failure, baseline creatinine of 1.5. PLAN: To proceed with Cardiology, pulmonary consultation, PT and OT modalities and consult GI medicine and obtain Hemoccult due to anemia. SUSAN JOHNSON MD DR: NICK/luz JOB#: [id number] / [id number]
--- NOTE | 2016-10-07 11:39 | CARD ---
APPROVED REPORT EXAM: Two-dimensional and M-mode echocardiogram with Doppler and color Doppler. Other Information Quality : Good INDICATION Syncope 2D DIMENSIONS RVDd2.5 (2.9-3.5cm)Left Atrium(2D)4.0 (1.6-4.0cm) IVSd1.0 (0.7-1.1cm)Aortic Root(2D)2.5 (2.0-3.7cm) LVDd4.5 (3.9-5.9cm)LVOT Diameter1.9 (1.8-2.4cm) PWd1.1 (0.7-1.1cm)LVDs2.9 (2.5-4.0cm) FS (%) 35.5 %SV61.5 ml LVEF(%)65.0 (>50%) Aortic Valve AoV Peak Bob.206.6cm/sAoV VTI47.0cm AO Peak GR.17.1mmHgLVOT Peak Bob.138.1cm/s LVOT VTI 35.21cmAO Mean GR.10mmHg GEETA (VMAX)1.20pb6OLA (VTI)2.04cm2 Mitral Valve MV E Drcpfkot013.4cm/sMV DECEL XTTV298qd MV A Bdwxhjal042.1cm/sMV AZQ07ts E/A Ratio1.6MVA (PHT)3.92cm2 TDI E/Lateral E'41.0E/Medial E'32.4 Tricuspid Valve TR P. Lpnrefzl885bj/sRAP EXFVONXE8srMc TR Peak Gr.50mrQoGEIT42rcZx Pulmonary Vein S1 Bmercvon93.9cm/sD2 Wdbuswya89.8cm/s PVa [id number] LEFT VENTRICLE The left ventricle is normal size. There is normal left ventricular wall thickness. The left ventricu lar systolic function is normal and the ejection fraction is within normal range. The Ejection Fracti on is 60-65%. There is normal LV segmental wall motion, septal motion suggestive of conduction defici t. Transmitral Doppler flow pattern is Grade II-pseudonormal filling dynamics. RIGHT VENTRICLE The right ventricle is normal size. The right ventricular systolic function is normal. ATRIA The left atrium is mildly dilated. The right atrium is mildly dilated. The interatrial septum is inta ct with no evidence for an atrial septal defect or patent foramen ovale as noted on 2-D or Doppler im aging. AORTIC VALVE The aortic valve is calcified but opens well. Doppler and Color Flow revealed no significant aortic r egurgitation. There is no significant aortic valvular stenosis. MITRAL VALVE The mitral valve is calcified but opens well. Posterior mitral annular calcification is severe. There is no evidence of mitral valve prolapse. There is no mitral valve stenosis. Doppler and Color-flow r evealed trace to mild mitral regurgitation. TRICUSPID VALVE The tricuspid valve is normal in structure and function. Doppler and Color Flow revealed moderate tri cuspid regurgitation. There is severe pulmonary hypertension. The PA pressure was estimated at 92 mmH g. There is no tricuspid valve stenosis. PULMONIC VALVE Doppler and Color Flow revealed trace pulmonic valvular regurgitation. There is no pulmonic valvular stenosis. GREAT VESSELS The aortic root is normal in size. The ascending aorta is normal in size. The IVC is normal in size a nd collapses >50% with inspiration. PERICARDIAL EFFUSION There is no evidence of significant pericardial effusion. Critical Notification Critical Value: No <Conclusion> The left ventricular systolic function is normal and the ejection fraction is within normal range. Th e Ejection Fraction is 60-65%. There is normal LV segmental wall motion, septal motion suggestive of conduction deficit. Doppler and Color Flow revealed moderate tricuspid regurgitation. There is severe pulmonary hyperten mehul. The PA pressure was estimated at 92 mmHg.
[2016-10-07] MEDS: INSULIN ASPART 300 UNITS/3 ML INSULN.PEN SQ SCH ×3 (12:27→21:00)
[2016-10-07 14:37] LABS: NEG OBC FOB NEG; POS OBC FOB POS
[2016-10-07 15:00] VITALS: BP 104/36
[2016-10-07] MEDS: BUMETANIDE 1 MG TABLET. PO SCH (16:00)
--- NOTE | 2016-10-07 16:39 | PDOC ---
Provider Note Provider Note dictated ITZEL RODGERS MD Oct 07, 2016 16:39
--- NOTE | 2016-10-07 17:03 | CONS ---
DATE OF CONSULTATION: 10/07/2016 ATTENDING PHYSICIAN: Dr. Farias. REASON FOR CONSULTATION: Abnormal chest x-ray and pulmonary hypertension. HISTORY OF PRESENT ILLNESS: The patient is a pleasant 86-year-old female. She says she was doing reasonably well. She was working in the garden, and she tripped and fell and had significant laceration to the right side of her scalp. She denied any loss of consciousness or any syncopal episode prior to the fall. The patient was seen in the Emergency Room, and she required suturing to the right scalp area. I have been asked to see her for further evaluation of her abnormal chest x-ray which was reviewed by me and shows cardiomegaly and mild vascular prominence suggesting possible mild CHF. Upon further questioning, she states that she has no chronic shortness of breath. She has only tobacco use for 20 years, but she quit many years ago. No cough, no chest pains. She never had any history of DVT or pulmonary embolism. An echocardiogram was performed which showed a normal ejection fraction of 60% to 65%. However, there was severe pulmonary hypertension with a pulmonary artery systolic pressure of 92. PAST MEDICAL HISTORY: Significant for history of hypertension, dyslipidemia, coronary artery disease, type 2 diabetes, and hypothyroidism. PAST SURGICAL HISTORY: Appendectomy in 1949 and coronary artery bypass grafting in 2000. FAMILY HISTORY: Noncontributory to lungs. SOCIAL HISTORY: Smoked for 20 years before quitting many years ago. ALLERGIES: None. CURRENT MEDICATIONS: Reviewed as listed in the MRAD. REVIEW OF SYSTEMS: Twelve-point system obtained. Pertinent positives are discussed in the history of present illness, otherwise noncontributory. All systems that were negative were reviewed as well. PHYSICAL EXAMINATION: VITAL SIGNS: Her blood pressure is 104 systolic. Pulse oximetry is 100% on 2 liters, afebrile. HEENT: Sclerae are nonicteric. NECK: Supple. LUNGS: With few crackles posteriorly. CARDIOVASCULAR: Regular rate and rhythm. ABDOMEN: Soft, nontender. EXTREMITIES: With bilateral pitting edema. LABORATORY DATA: Reviewed. BUN 38, creatinine 1.7. TSH is 1.2. INR is 1.0. White cell count 7.5, hemoglobin 8.2, and platelets are 203. IMPRESSION: 1. Status post mechanical fall with no evidence of any syncopal episode prior to the fall. Now is status post laceration of her scalp. 2. Severe pulmonary hypertension. Etiology could be primary pulmonary hypertension. She has minimal history of tobacco use. She has no history of deep vein thrombosis or pulmonary embolism, but it cannot be ruled out. She has no significant valvular heart disease, and I clinically do not suspect any interstitial lung disease. She would benefit from doing a VQ scan and a noncontrast CT chest as a part of workup of pulmonary hypertension. She is not the best optimum candidate for a right and a left heart catheterization. 3. Minimal history of tobacco use. RECOMMENDATIONS: 1. We will obtain VQ scan. 2. Noncontrast CT chest. 3. We will make further recommendations regarding the etiology of pulmonary hypertension. 4. Agree with mild diuresis. 5. Not the best optimum candidate for a right and a left heart catheterization at her advanced age. 6. We may assess the need for oxygen at the time of discharge. Further recommendations to follow. ITZEL RODGERS MD DR: DELROY/ulz JOB#: [id number] / [id number]
--- NOTE | 2016-10-07 17:27 | RAD ---
Indication shortness of air. Noncontrast imaging through the chest was performed. No prior CT imaging of the chest is available. Imaging through the upper abdomen is unremarkable. There is moderately heavy plaquing of the arch of the aorta. Extensive coronary artery calcification is noted. A few mediastinal lymph nodes are noted. Definite pathologic hilar or mediastinal adenopathy is not seen. There are small bilateral pleural effusions. The left pleural effusion is somewhat larger than the right. Volume loss at the left lung base likely reflects passive atelectasis associated with the pleural fluid. Underlying pneumonia is not entirely excluded. There is subtle groundglass opacities in the lungs. This is nonspecific. This may reflect interstitial edema. An interstitial inflammatory process is not entirely excluded. A dominant soft tissue mass in either lung is not seen. IMPRESSION: Small bilateral pleural effusions. The left pleural effusion is somewhat larger than the right. Volume loss at the left lung base likely reflects passive atelectasis associated with pleural fluid. Underlying pneumonia is not entirely excluded. Subtle groundglass opacities in the lungs are nonspecific. Major considerations with center around mild interstitial edema or interstitial inflammation. PQRS Compliance Statement: One or more of the following individualized dose reduction techniques were utilized for this examination: 1. Automated exposure control 2. Adjustment of the mA and/or kV according to patient size 3. Use of iterative reconstruction technique
--- NOTE | 2016-10-07 18:17 | PDOC2 ---
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) Renal/: Chronic renal insuff Endocrine: Diabetes (2), Hypothyroidism Past Surgical History Past Surgical History: Appendectomy, CABG (x3 in 2000), Other (external iliac stents) Family History Family History: Diabetes Social History No (quit remotely) ALCOHOL: none Drugs: None Lives: Alone Current Problem List Problem List Problems Medical Problems: (1) Acute and chronic respiratory failure Status: Acute (2) CHF exacerbation Status: Acute (3) Fall Status: Acute (4) Head injury Status: Acute (5) Hypoxia Status: Acute Current Medications Current Medications Current Medications Lidocaine/Sodium Bicarbonate (Buffered Lidocaine 1%) 20 ml 1X ONCE IJ Last administered on 10/06/16 17:50; Start 10/06/16 at 17:00; Stop 10/06/16 at 17:01 ; Status DC Diphtheria/ Tetanus/Acell Pertussis 0.5 ml 0.5 ml ONCE ONCE VAX IM Last administered on 10/06/16 17:49; Start 10/06/16 at 17:00; Stop 10/06/16 at 17:01 ; Status DC Sodium Chloride 500 ml @ 500 mls/hr 1X ONCE IV Last administered on 17:51; Start 10/06/16 at 17:45; Stop 10/06/16 at 18:44; Status DC Sodium Chloride (Iv Sodium Chloride 0.9% 1000ml Bag) 1,000 ml @ 1,000 mls/hr 1X ONCE IV ; Start 10/06/16 at 20:00; Stop 10/06/16 at 20:59; Status DC Ondansetron HCl 4 mg 4 mg PRN Q8HRS PRN IV NAUSEA/VOMITING; Start 10/06/16 at 20:00; Stop 10/07/16 at 19:59 Sodium Chloride 1,000 ml @ 125 mls/hr Q8H IV Last administered on 10/07/16 00 :05; Start 10/06/16 at 19:59; Stop 10/07/16 at 19:58 Ceftriaxone Sodium 1 gm/ Sodium Chloride 50 ml @ 100 mls/hr Q24H IV ; Start at 21:00 Azithromycin/ Sodium Chloride (Zithromax/Iv Sodium Chloride 0.9% 250ml) 250 ml @ 250 mls/hr 1X ONCE IV ; Start 10/06/16 at 20:45; Stop 10/06/16 at 21:44; Status UNV Furosemide 40 mg 40 mg 1X ONCE IVP ; Start 10/06/16 at 21:15; Stop 10/06/16 at 21:16; Status DC Azithromycin 250 ml @ 250 mls/hr 1X ONCE IV Last administered on 10/07/16 01 :19; Start 10/06/16 at 21:00; Stop 10/06/16 at 21:59; Status DC Ceftriaxone Sodium (Rocephin 1gm Ivpb For Omni) 50 ml @ 100 mls/hr 1X ONCE IV Last administered on 10/07/16 00:05; Start 10/06/16 at 21:00; Stop 10/06/16 at 21:29; Status DC Aspirin (Children'S Aspirin) 81 mg DAILY PO Last administered on 10/07/16 09: 49; Start 10/07/16 at 10:00 Atorvastatin Calcium (Lipitor) 40 mg QHS PO ; Start 10/07/16 at 21:00 Metoprolol Tartrate (Lopressor) 50 mg BID PO ; Start 10/07/16 at 10:00; Stop at 11:39; Status DC Vitamin D (Vitamin D3) 2,000 unit DAILY PO Last administered on 10/07/16 09:49 ; Start 10/07/16 at 10:00 Pioglitazone HCl (Actos) 30 mg DAILY PO Last administered on 10/07/16 09:49; Start 10/07/16 at 10:00 Non-Formulary Medication 90 mg DAILY PO ; Start 10/07/16 at 09:00; Status UNV Insulin Aspart (Novolog) 0-12 UNITS QIDACHS SQ Last administered on 10/07/16 17:26; Start 10/07/16 at 11:30 Metoprolol Tartrate (Lopressor) 25 mg BID PO ; Start 10/07/16 at 21:00 Amlodipine Besylate (Norvasc) 5 mg DAILY PO ; Start 10/08/16 at 09:00 Bumetanide (Bumex) 1 mg BID94 PO ; Start 10/07/16 at 16:00 Active Scripts Active Reported Potassium 99 Mg Tablet 90 Mg PO DAILY Atorvastatin Calcium 40 Mg Tablet 1 Tab PO QHS Amlodipine Besylate 5 Mg Tablet 5 Mg PO DAILY Pioglitazone Hcl 30 Mg Tablet 30 Mg PO DAILY Metoprolol Tartrate 50 Mg Tablet 50 Mg PO BID Losartan Potassium 100 Mg Tablet 100 Mg PO DAILY Bumetanide 2 Mg Tablet 2 Mg PO DAILY Humulin N (Nph, Human Insulin Isophane) 100 Unit/1 Ml Vial 8 Unit SQ QHS Humulin N (Nph, Human Insulin Isophane) 100 Unit/1 Ml Vial 6 Unit SQ DAILYAC Humulin R (Insulin Regular, Human) 100 Unit/1 Ml Vial 8 Unit IJ DAILYBFRSUP Aspirin 81 Mg Tab.chew 1 Tab PO DAILY Vitamin D (Cholecalciferol (Vitamin D3)) 1,000 Unit Capsule 2 Cap PO DAILY Fish Oil 1,200 Mg Softgel (Osseo-3S/Dha/Epa/Fish Oil) 1 Each Capsule Allergies Allergies: Coded Allergies: No Known Drug Allergies (Unverified , 04/07/15) Vitals VITALS Vital Signs Date Time Temp Pulse Resp B/P Pulse Ox O2 Delivery O2 Flow Rate FiO2 10/07/16 15:00 98.1 74 20 104/36 100 Nasal Cannula 2.0 98.1 Labs Labs Laboratory Tests Test 10/06/16 16:57 10/06/16 21:48 10/07/16 03:40 10/07/16 03:43 White Blood Count 5.2x10^3/uL (4.0-11.0) 7.5x10^3/uL (4.0-11.0) Red Blood Count 2.90x10^6/uL (3.50-5.40) 2.69x10^6/uL (3.50-5.40) Hemoglobin 8.6g/dL (12.0-15.5) 8.2g/dL (12.0-15.5) Hematocrit 26.6% (36.0-47.0) 24.3% (36.0-47.0) Mean Corpuscular Volume 92fL (79-100) 90fL (79-100) Mean Corpuscular Hemoglobin 30pg (25-35) 30pg (25-35) Mean Corpuscular Hemoglobin Concent 32g/dL (31-37) 34g/dL (31-37) Red Cell Distribution Width 14.9% (11.5-14.5) 14.4% (11.5-14.5) Platelet Count 232x10^3/uL (140-400) 203x10^3/uL (140-400) Neutrophils (%) (Auto) 64% (31-73) 66% (31-73) Lymphocytes (%) (Auto) 23% (24-48) 24% (24-48) Monocytes (%) (Auto) 10% (0-9) 8% (0-9) Eosinophils (%) (Auto) 2% (0-3) 1% (0-3) Basophils (%) (Auto) 1% (0-3) 0% (0-3) Neutrophils # (Auto) 3.3x10^3uL (1.8-7.7) 5.0x10^3uL (1.8-7.7) Lymphocytes # (Auto) 1.2x10^3/uL (1.0-4.8) 1.8x10^3/uL (1.0-4.8) Monocytes # (Auto) 0.5x10^3/uL (0.0-1.1) 0.6x10^3/uL (0.0-1.1) Eosinophils # (Auto) 0.1x10^3/uL (0.0-0.7) 0.1x10^3/uL (0.0-0.7) Basophils # (Auto) 0.0x10^3/uL (0.0-0.2) 0.0x10^3/uL (0.0-0.2) Prothrombin Time 12.5SEC (11.7-14.0) Prothromb Time International Ratio 1.0 (0.8-1.1) Troponin I Quantitative < 0.017ng/mL (0.000-0.055) LB-Eud-Z-Type Natriuretic Peptide 8182pg/mL (0-449) Glucose (Fingerstick) 157mg/dL (70-99) Sodium Level 135mmol/L (136-145) Potassium Level 3.6mmol/L (3.5-5.1) Chloride Level 99mmol/L (98-107) Carbon Dioxide Level 30mmol/L (21-32) Anion Gap 6 (6-14) Blood Urea Nitrogen 38mg/dL (7-20) Creatinine 1.7mg/dL (0.6-1.0) Estimated GFR (Cockcroft-Gault) 28.6 BUN/Creatinine Ratio 22 (6-20) Glucose Level 191mg/dL (70-99) Calcium Level 9.2mg/dL (8.5-10.1) Magnesium Level 2.0mg/dL (1.8-2.4) Total Bilirubin 0.4mg/dL (0.2-1.0) Aspartate Amino Transf (AST/SGOT) 25U/L (15-37) Alanine Aminotransferase (ALT/SGPT) 22U/L (14-59) Alkaline Phosphatase 55U/L (46-116) Creatine Kinase 129U/L (26-192) Total Protein 6.4g/dL (6.4-8.2) Albumin 2.5g/dL (3.4-5.0) Albumin/Globulin Ratio 0.6 (1.0-1.7) Triglycerides Level 128mg/dL (0-150) Cholesterol Level 105mg/dL (0-200) LDL Cholesterol, Calculated 43mg/dL (0-100) VLDL Cholesterol, Calculated 26mg/dL (0-40) HDL Cholesterol 36mg/dL (40-60) Cholesterol/HDL Ratio 2.9 Thyroid Stimulating Hormone (TSH) 1.249uIU/mL (0.358-3.74) Test 10/07/16 07:17 10/07/16 11:35 10/07/16 14:19 10/07/16 16:55 Glucose (Fingerstick) 164mg/dL (70-99) 179mg/dL (70-99) 159mg/dL (70-99) Stool Occult Blood Negative (NEG) Laboratory Tests Test 10/06/16 21:48 10/07/16 03:40 10/07/16 03:43 10/07/16 07:17 Glucose (Fingerstick) 157mg/dL (70-99) 164mg/dL (70-99) Sodium Level 135mmol/L (136-145) Potassium Level 3.6mmol/L (3.5-5.1) Chloride Level 99mmol/L (98-107) Carbon Dioxide Level 30mmol/L (21-32) Anion Gap 6 (6-14) Blood Urea Nitrogen 38mg/dL (7-20) Creatinine 1.7mg/dL (0.6-1.0) Estimated GFR (Cockcroft-Gault) 28.6 BUN/Creatinine Ratio 22 (6-20) Glucose Level 191mg/dL (70-99) Calcium Level 9.2mg/dL (8.5-10.1) Magnesium Level 2.0mg/dL (1.8-2.4) Total Bilirubin 0.4mg/dL (0.2-1.0) Aspartate Amino Transf (AST/SGOT) 25U/L (15-37) Alanine Aminotransferase (ALT/SGPT) 22U/L (14-59) Alkaline Phosphatase 55U/L (46-116) Creatine Kinase 129U/L (26-192) Total Protein 6.4g/dL (6.4-8.2) Albumin 2.5g/dL (3.4-5.0) Albumin/Globulin Ratio 0.6 (1.0-1.7) Triglycerides Level 128mg/dL (0-150) Cholesterol Level 105mg/dL (0-200) LDL Cholesterol, Calculated 43mg/dL (0-100) VLDL Cholesterol, Calculated 26mg/dL (0-40) HDL Cholesterol 36mg/dL (40-60) Cholesterol/HDL Ratio 2.9 Thyroid Stimulating Hormone (TSH) 1.249uIU/mL (0.358-3.74) White Blood Count 7.5x10^3/uL (4.0-11.0) Red Blood Count 2.69x10^6/uL (3.50-5.40) Hemoglobin 8.2g/dL (12.0-15.5) Hematocrit 24.3% (36.0-47.0) Mean Corpuscular Volume 90fL (79-100) Mean Corpuscular Hemoglobin 30pg (25-35) Mean Corpuscular Hemoglobin Concent 34g/dL (31-37) Red Cell Distribution Width 14.4% (11.5-14.5) Platelet Count 203x10^3/uL (140-400) Neutrophils (%) (Auto) 66% (31-73) Lymphocytes (%) (Auto) 24% (24-48) Monocytes (%) (Auto) 8% (0-9) Eosinophils (%) (Auto) 1% (0-3) Basophils (%) (Auto) 0% (0-3) Neutrophils # (Auto) 5.0x10^3uL (1.8-7.7) Lymphocytes # (Auto) 1.8x10^3/uL (1.0-4.8) Monocytes # (Auto) 0.6x10^3/uL (0.0-1.1) Eosinophils # (Auto) 0.1x10^3/uL (0.0-0.7) Basophils # (Auto) 0.0x10^3/uL (0.0-0.2) Test 10/07/16 11:35 10/07/16 14:19 10/07/16 16:55 Glucose (Fingerstick) 179mg/dL (70-99) 159mg/dL (70-99) Stool Occult Blood Negative (NEG) Assessment/Plan Assessment/Plan Chronic blood loss anemia- with melena, differential includes: malignancy, AVMS , IBD, Crespo's. Endoscopic evaluation discussed with patient who defers due to age. Medical therapy with supplement recommended. Full note dictated TAMMY MATHIS MD Oct 07, 2016 18:17
[2016-10-07 19:00] VITALS: BP 113/41
--- NOTE | 2016-10-07 19:38 | RAD ---
PROCEDURE Nuclear ventilation-profusion scan. HISTORY Pulmonary hypertension. TECHNIQUE Ventilation images of the chest were obtained following the inhalation of 25 millicuries Xe-133 gas. Perfusion images of the chest were obtained following the intravenous administration of 5 millicuries Tc-99m MAA. COMPARISON Chest radiograph dated 10/06/2016. FINDINGS The ventilation images demonstrate slight asymmetric accumulation of radiotracer within the right greater than left lung. There is no evidence of tracer retention. There are lateral and anterior left lower lobe perfusion defects superimposed on diffusely heterogeneous tracer activity throughout both lungs. IMPRESSION Intermediate probability to high probability for pulmonary embolism. The exam is limited due to diffusely heterogeneous radiotracer activity on perfusion images, a finding which can be seen with chronic obstructive pulmonary disease. CT angiography of the chest may be useful for characterization if clinically feasible. Findings were discussed with Christi, the nurse caring for the patient, at 1930 hours on 10/07/2016. Electronically signed by: Rae Welch (Oct 07, 2016 19:36:54)
[2016-10-07] MEDS: METOPROLOL TART IMMED RELEASE 25 MG TABLET. PO SCH (21:33)
[2016-10-07] MEDS: ATORVASTATIN CALCIUM 40 MG TABLET. PO SCH (21:33)
[2016-10-07] MEDS: CEFTRIAXONE SODIUM 1 GM in IV NORMAL SALINE 50ML 50 ML IV SCH (21:34)
[2016-10-07] MEDS: ENOXAPARIN 30 MG/0.3 ML SYRINGE. SQ SCH (21:40)
[2016-10-07 23:00] VITALS: BP 114/61
[2016-10-08] VITALS (9 sets, daily range): BP systolic 96–140; BP diastolic 20–85
--- NOTE | 2016-10-08 02:42 | CONS ---
DATE OF CONSULTATION: 10/07/2016 REASON FOR CONSULTATION: Chronic blood loss anemia. REFERRING PHYSICIAN: Dr. Ramakrishna Farias. HISTORY OF PRESENT ILLNESS: An 86-year-old female with past medical history significant for hypertension, hyperlipidemia, coronary artery disease, type 2 diabetes, hypothyroidism, status post appendectomy and status post CABG in 2000, was admitted to [facility] after a recent fall. She was also found to have a hemoglobin that has dropped from 10.7-8.6. She states that she has been having some dark stools recently, but no change in bowel habits. Otherwise, no diarrhea, no constipation, no change in weight, no change in appetite. No dysphagia or odynophagia. Minimal heartburn. She states that she has not undergone upper endoscopy and colonoscopy. At this point in her life, she is not particularly interested. PAST MEDICAL HISTORY: Hypertension, hyperlipidemia, coronary artery disease, diabetes, hypothyroidism, chronic blood loss anemia, status post appendectomy, status post CABG. SOCIAL HISTORY: She does not drink. She is a former smoker. FAMILY HISTORY: Noncontributory. MEDICATIONS: At the present time include Norvasc, Lopressor, Lipitor, Bumex, insulin, Actos, vitamin D, Children's aspirin. FAMILY AND SOCIAL HISTORY: As stated. REVIEW OF SYSTEMS: As above. PHYSICAL EXAMINATION: GENERAL: Reveals a pale white female who is alert, cooperative, in mild distress. VITAL SIGNS: Temperature 98.1, pulse 74, respiratory rate 20, blood pressure 104/ . HEENT: Reveals laceration over the right eyebrow. NECK: Supple. LUNGS: Clear. CARDIOVASCULAR: Reveals an S1, S2 without S3, S4 or appreciable murmur. ABDOMEN: Reveals a soft abdomen, normal bowel sounds, without appreciable hepatosplenomegaly, a well-healed midline sternal incision. EXTREMITIES: Reveals no cyanosis, clubbing, or edema. LABORATORY STUDIES: Sodium 138, potassium 3.8, chloride 99, BUN 38, creatinine 1.7, glucose is 191, calcium 9.2, magnesium 2.0, total bilirubin 0.4, AST of 25, ALT of 22, alkaline phosphatase 55, creatinine kinase 129, total protein 6.4. TSH is 1.249. Hemoglobin is 8.2, hematocrit 24.3, white count 7.5. INR is 1.0. IMPRESSION: Chronic blood loss anemia, possible melena. The etiology is to be determined. Differential includes peptic ulcer disease, AVMs, IBD, colon polyps, colon cancer, gastric cancer among others. Risks and benefits of procedures have been discussed. The patient wishes to pursue medical therapy at this time. I would like to thank Dr. Farias for allowing us to consult and participate in the patient's care. TAMMY MATHIS MD DR: LEA/luz JOB#: [id number] / [id number] RAMAKRISHNA Baptiste MD
[2016-10-08 04:34] LABS: BASO % 1 % (0-3); EOS % 1 % (0-3); HEMATOCRIT 24.7 % (36.0-47.0); HEMOGLOBIN 7.8 g/dL (12.0-15.5); LYMPH # 0.9 x10^3/uL (1.0-4.8); LYMPH % 12 % (24-48); MEAN CORPUSCULAR HEMOGLOBIN 29 pg (25-35); MEAN CORPUSCULAR HGB CONC 32 g/dL (31-37); MEAN CORPUSCULAR VOLUME 92 fL (79-100); MONO % 7 % (0-9); NEUT % 81 % (31-73); PLATELET COUNT 213 x10^3/uL (140-400); RED BLOOD COUNT 2.68 x10^6/uL (3.50-5.40); RED CELL DISTRIBUTION WIDTH 14.6 % (11.5-14.5); WHITE BLOOD COUNT 7.4 x10^3/uL (4.0-11.0)
[2016-10-08] MEDS ORDERED: METO50TA2 PO (07:10)
[2016-10-08] MEDS ORDERED: BUME2TAB PO (07:10)
--- NOTE | 2016-10-08 07:20 | PDOC ---
PROGRESS NOTES Subjective Subjective Patient feeling better. Discussed treatment options with patient and patient dose not wish for any aggressive treatment including transfusion. Severe Pulm HTN with CHF, hypotension and hypoxia documented. Anemia with heme neg stool but with hx of melena noted. Patient wishes to be a DNR and agrees to palliative care consult. Objective Objective Vital Signs Date Time Temp Pulse Resp B/P Pulse Ox O2 Delivery O2 Flow Rate FiO2 10/08/16 03:00 98.6 71 18 110/45 95 Nasal Cannula 2.0 98.6 Intake and Output 10/08/16 07:00 Intake Total 1190 ml Balance 1190 ml Intake Oral 1140 ml IV Total 50 ml # Voids 5 Physical Exam Abdomen: Normal bowel sounds Heart: Other (irregular) Extremities: Other (1+ edema) General: Alert Lungs: Clear to auscultation Assessment Assessment Problems Medical Problems: (1) Acute and chronic respiratory failure Status: Acute (2) CHF exacerbation Status: Acute (3) Fall Status: Acute (4) Head injury Status: Acute (5) Hypoxia Status: Acute 1. Severe Pulm HX 2. Acute on chronic diastolic congestive heart failure. 3. Blunt head trauma with laceration. 4. Hypoxia. 5. Coronary artery disease. 6. Type 2 diabetes. 7. Acute on chronic respiratory failure. 8. Acute on chronic renal failure, baseline creatinine of 1.5. 9. Anemia. Plan Plan of Care Consult palliative care Patient declines transfusion or further eval Possible home with Home health or hospice 6 min walk for home O2 Discharge today if able Comment Review of Relevant I have reviewed the following items mary (where applicable) has been applied. Labs Laboratory Tests Test 10/06/16 16:57 10/06/16 21:48 10/07/16 03:40 10/07/16 03:43 White Blood Count 5.2x10^3/uL (4.0-11.0) 7.5x10^3/uL (4.0-11.0) Red Blood Count 2.90x10^6/uL (3.50-5.40) 2.69x10^6/uL (3.50-5.40) Hemoglobin 8.6g/dL (12.0-15.5) 8.2g/dL (12.0-15.5) Hematocrit 26.6% (36.0-47.0) 24.3% (36.0-47.0) Mean Corpuscular Volume 92fL (79-100) 90fL (79-100) Mean Corpuscular Hemoglobin 30pg (25-35) 30pg (25-35) Mean Corpuscular Hemoglobin Concent 32g/dL (31-37) 34g/dL (31-37) Red Cell Distribution Width 14.9% (11.5-14.5) 14.4% (11.5-14.5) Platelet Count 232x10^3/uL (140-400) 203x10^3/uL (140-400) Neutrophils (%) (Auto) 64% (31-73) 66% (31-73) Lymphocytes (%) (Auto) 23% (24-48) 24% (24-48) Monocytes (%) (Auto) 10% (0-9) 8% (0-9) Eosinophils (%) (Auto) 2% (0-3) 1% (0-3) Basophils (%) (Auto) 1% (0-3) 0% (0-3) Neutrophils # (Auto) 3.3x10^3uL (1.8-7.7) 5.0x10^3uL (1.8-7.7) Lymphocytes # (Auto) 1.2x10^3/uL (1.0-4.8) 1.8x10^3/uL (1.0-4.8) Monocytes # (Auto) 0.5x10^3/uL (0.0-1.1) 0.6x10^3/uL (0.0-1.1) Eosinophils # (Auto) 0.1x10^3/uL (0.0-0.7) 0.1x10^3/uL (0.0-0.7) Basophils # (Auto) 0.0x10^3/uL (0.0-0.2) 0.0x10^3/uL (0.0-0.2) Prothrombin Time 12.5SEC (11.7-14.0) Prothromb Time International Ratio 1.0 (0.8-1.1) Troponin I Quantitative < 0.017ng/mL (0.000-0.055) GP-Com-O-Type Natriuretic Peptide 8182pg/mL (0-449) Glucose (Fingerstick) 157mg/dL (70-99) Sodium Level 135mmol/L (136-145) Potassium Level 3.6mmol/L (3.5-5.1) Chloride Level 99mmol/L (98-107) Carbon Dioxide Level 30mmol/L (21-32) Anion Gap 6 (6-14) Blood Urea Nitrogen 38mg/dL (7-20) Creatinine 1.7mg/dL (0.6-1.0) Estimated GFR (Cockcroft-Gault) 28.6 BUN/Creatinine Ratio 22 (6-20) Glucose Level 191mg/dL (70-99) Calcium Level 9.2mg/dL (8.5-10.1) Magnesium Level 2.0mg/dL (1.8-2.4) Total Bilirubin 0.4mg/dL (0.2-1.0) Aspartate Amino Transf (AST/SGOT) 25U/L (15-37) Alanine Aminotransferase (ALT/SGPT) 22U/L (14-59) Alkaline Phosphatase 55U/L (46-116) Creatine Kinase 129U/L (26-192) Total Protein 6.4g/dL (6.4-8.2) Albumin 2.5g/dL (3.4-5.0) Albumin/Globulin Ratio 0.6 (1.0-1.7) Triglycerides Level 128mg/dL (0-150) Cholesterol Level 105mg/dL (0-200) LDL Cholesterol, Calculated 43mg/dL (0-100) VLDL Cholesterol, Calculated 26mg/dL (0-40) HDL Cholesterol 36mg/dL (40-60) Cholesterol/HDL Ratio 2.9 Thyroid Stimulating Hormone (TSH) 1.249uIU/mL (0.358-3.74) Test 10/07/16 07:17 10/07/16 11:35 10/07/16 14:19 10/07/16 16:55 Glucose (Fingerstick) 164mg/dL (70-99) 179mg/dL (70-99) 159mg/dL (70-99) Stool Occult Blood Negative (NEG) Test 10/07/16 21:04 10/08/16 03:35 Glucose (Fingerstick) 125mg/dL (70-99) White Blood Count 7.4x10^3/uL (4.0-11.0) Red Blood Count 2.68x10^6/uL (3.50-5.40) Hemoglobin 7.8g/dL (12.0-15.5) Hematocrit 24.7% (36.0-47.0) Mean Corpuscular Volume 92fL (79-100) Mean Corpuscular Hemoglobin 29pg (25-35) Mean Corpuscular Hemoglobin Concent 32g/dL (31-37) Red Cell Distribution Width 14.6% (11.5-14.5) Platelet Count 213x10^3/uL (140-400) Neutrophils (%) (Auto) 81% (31-73) Lymphocytes (%) (Auto) 12% (24-48) Monocytes (%) (Auto) 7% (0-9) Eosinophils (%) (Auto) 1% (0-3) Basophils (%) (Auto) 1% (0-3) Neutrophils # (Auto) 6.0x10^3uL (1.8-7.7) Lymphocytes # (Auto) 0.9x10^3/uL (1.0-4.8) Monocytes # (Auto) 0.5x10^3/uL (0.0-1.1) Eosinophils # (Auto) 0.0x10^3/uL (0.0-0.7) Basophils # (Auto) 0.0x10^3/uL (0.0-0.2) Laboratory Tests Test 10/07/16 07:17 10/07/16 11:35 10/07/16 14:19 10/07/16 16:55 Glucose (Fingerstick) 164mg/dL (70-99) 179mg/dL (70-99) 159mg/dL (70-99) Stool Occult Blood Negative (NEG) Test 10/07/16 21:04 10/08/16 03:35 Glucose (Fingerstick) 125mg/dL (70-99) White Blood Count 7.4x10^3/uL (4.0-11.0) Red Blood Count 2.68x10^6/uL (3.50-5.40) Hemoglobin 7.8g/dL (12.0-15.5) Hematocrit 24.7% (36.0-47.0) Mean Corpuscular Volume 92fL (79-100) Mean Corpuscular Hemoglobin 29pg (25-35) Mean Corpuscular Hemoglobin Concent 32g/dL (31-37) Red Cell Distribution Width 14.6% (11.5-14.5) Platelet Count 213x10^3/uL (140-400) Neutrophils (%) (Auto) 81% (31-73) Lymphocytes (%) (Auto) 12% (24-48) Monocytes (%) (Auto) 7% (0-9) Eosinophils (%) (Auto) 1% (0-3) Basophils (%) (Auto) 1% (0-3) Neutrophils # (Auto) 6.0x10^3uL (1.8-7.7) Lymphocytes # (Auto) 0.9x10^3/uL (1.0-4.8) Monocytes # (Auto) 0.5x10^3/uL (0.0-1.1) Eosinophils # (Auto) 0.0x10^3/uL (0.0-0.7) Basophils # (Auto) 0.0x10^3/uL (0.0-0.2) Medications Current Medications Lidocaine/Sodium Bicarbonate (Buffered Lidocaine 1%) 20 ml 1X ONCE IJ Last administered on 10/06/16 17:50; Start 10/06/16 at 17:00; Stop 10/06/16 at 17:01 ; Status DC Diphtheria/ Tetanus/Acell Pertussis 0.5 ml 0.5 ml ONCE ONCE VAX IM Last administered on 10/06/16 17:49; Start 10/06/16 at 17:00; Stop 10/06/16 at 17:01 ; Status DC Sodium Chloride 500 ml @ 500 mls/hr 1X ONCE IV Last administered on 17:51; Start 10/06/16 at 17:45; Stop 10/06/16 at 18:44; Status DC Sodium Chloride (Iv Sodium Chloride 0.9% 1000ml Bag) 1,000 ml @ 1,000 mls/hr 1X ONCE IV ; Start 10/06/16 at 20:00; Stop 10/06/16 at 20:59; Status DC Ondansetron HCl 4 mg 4 mg PRN Q8HRS PRN IV NAUSEA/VOMITING; Start 10/06/16 at 20:00; Stop 10/07/16 at 19:59; Status DC Sodium Chloride 1,000 ml @ 125 mls/hr Q8H IV Last administered on 10/07/16 00 :05; Start 10/06/16 at 19:59; Stop 10/07/16 at 19:58; Status DC Ceftriaxone Sodium 1 gm/ Sodium Chloride 50 ml @ 100 mls/hr Q24H IV Last administered on 10/07/16 21:34; Start 10/07/16 at 21:00 Azithromycin/ Sodium Chloride (Zithromax/Iv Sodium Chloride 0.9% 250ml) 250 ml @ 250 mls/hr 1X ONCE IV ; Start 10/06/16 at 20:45; Stop 10/06/16 at 21:44; Status UNV Furosemide 40 mg 40 mg 1X ONCE IVP ; Start 10/06/16 at 21:15; Stop 10/06/16 at 21:16; Status DC Azithromycin 250 ml @ 250 mls/hr 1X ONCE IV Last administered on 10/07/16 01 :19; Start 10/06/16 at 21:00; Stop 10/06/16 at 21:59; Status DC Ceftriaxone Sodium (Rocephin 1gm Ivpb For Omni) 50 ml @ 100 mls/hr 1X ONCE IV Last administered on 10/07/16 00:05; Start 10/06/16 at 21:00; Stop 10/06/16 at 21:29; Status DC Aspirin (Children'S Aspirin) 81 mg DAILY PO Last administered on 10/07/16 09: 49; Start 10/07/16 at 10:00 Atorvastatin Calcium (Lipitor) 40 mg QHS PO Last administered on 10/07/16 21: 33; Start 10/07/16 at 21:00 Metoprolol Tartrate (Lopressor) 50 mg BID PO ; Start 10/07/16 at 10:00; Stop at 11:39; Status DC Vitamin D (Vitamin D3) 2,000 unit DAILY PO Last administered on 10/07/16 09:49 ; Start 10/07/16 at 10:00 Pioglitazone HCl (Actos) 30 mg DAILY PO Last administered on 10/07/16 09:49; Start 10/07/16 at 10:00; Stop 10/08/16 at 06:19; Status DC Non-Formulary Medication 90 mg DAILY PO ; Start 10/07/16 at 09:00; Status UNV Insulin Aspart (Novolog) 0-12 UNITS QIDACHS SQ Last administered on 10/07/16 17:26; Start 10/07/16 at 11:30 Metoprolol Tartrate (Lopressor) 25 mg BID PO Last administered on 10/07/16 21: 33; Start 10/07/16 at 21:00 Amlodipine Besylate (Norvasc) 5 mg DAILY PO ; Start 10/08/16 at 09:00; Stop at 09:00; Status DC Bumetanide (Bumex) 1 mg BID94 PO ; Start 10/07/16 at 16:00 Enoxaparin Sodium (Lovenox 30mg Syringe) 30 mg Q24H SQ Last administered on 21:40; Start 10/07/16 at 21:00 Active Scripts Active Reported Potassium 99 Mg Tablet 90 Mg PO DAILY Atorvastatin Calcium 40 Mg Tablet 1 Tab PO QHS Amlodipine Besylate 5 Mg Tablet 5 Mg PO DAILY Pioglitazone Hcl 30 Mg Tablet 30 Mg PO DAILY Metoprolol Tartrate 50 Mg Tablet 50 Mg PO BID Losartan Potassium 100 Mg Tablet 100 Mg PO DAILY Bumetanide 2 Mg Tablet 2 Mg PO DAILY Humulin N (Nph, Human Insulin Isophane) 100 Unit/1 Ml Vial 8 Unit SQ QHS Humulin N (Nph, Human Insulin Isophane) 100 Unit/1 Ml Vial 6 Unit SQ DAILYAC Humulin R (Insulin Regular, Human) 100 Unit/1 Ml Vial 8 Unit IJ DAILYBFRSUP Aspirin 81 Mg Tab.chew 1 Tab PO DAILY Vitamin D (Cholecalciferol (Vitamin D3)) 1,000 Unit Capsule 2 Cap PO DAILY Fish Oil 1,200 Mg Softgel ([place]-3S/Dha/Epa/Fish Oil) 1 Each Capsule Vitals/I & O Vital Sign - Last 24 Hours 10/07/16 10/07/16 10/07/16 10/07/16 07:35 09:49 11:00 15:00 Temp 97.9 98.1 97.9 98.1 Pulse 77 81 74 Resp 18 20 B/P 99/41 108/51 104/36 Pulse Ox 94 100 O2 Delivery Room Air Room Air Nasal Cannula O2 Flow Rate 2.0 10/07/16 10/07/16 10/07/16 10/07/16 19:00 20:00 21:33 23:00 Temp 98.5 98.5 Pulse 83 83 79 Resp 18 18 B/P 113/41 113/41 114/61 Pulse Ox 92 92 O2 Delivery Room Air Nasal Cannula Nasal Cannula O2 Flow Rate 2.0 2.0 10/08/16 03:00 Temp 98.6 98.6 Pulse 71 Resp 18 B/P 110/45 Pulse Ox 95 O2 Delivery Nasal Cannula O2 Flow Rate 2.0 Intake and Output 10/07/16 10/07/16 10/08/16 15:00 23:00 07:00 Intake Total 50 ml 1140 ml Balance 50 ml 1140 ml SUSAN JOHNSON MD Oct 08, 2016 07:20
--- NOTE | 2016-10-08 07:24 | RAD ---
Bilateral lower extremity venous ultrasound, 10/07/2016: History: Bilateral leg swelling, shortness of breath Duplex evaluation of the deep veins in the lower extremities was performed including grayscale, color-flow and spectral Doppler analysis. The femoral and popliteal veins demonstrate normal compressibility and normal responses to distal augmentation maneuvers. Color imaging of those vessels shows no evidence of intraluminal clot. The visualized deep veins in both calves are patent. IMPRESSION: There is no sonographic evidence of deep vein thrombosis in either lower extremity.
[2016-10-08] MEDS: INSULIN ASPART 300 UNITS/3 ML INSULN.PEN SQ SCH ×4 (07:30→21:21)
--- NOTE | 2016-10-08 08:19 | PDOC ---
PULMONARY PROGRESS NOTES Subjective no soa "I am 86, I want to go home" Vitals Vital Signs Date Time Temp Pulse Resp B/P Pulse Ox O2 Delivery O2 Flow Rate FiO2 10/08/16 03:00 98.6 71 18 110/45 95 Nasal Cannula 2.0 98.6 General: Alert, No acute distress Lungs: Clear Cardiovascular: S1 Abdomen: Soft Neuro Exam: Alert Extremities: Other (1+edema, echymosis right cheek) Labs Laboratory Tests Test 10/06/16 16:57 10/06/16 21:48 10/07/16 03:40 10/07/16 03:43 White Blood Count 5.2x10^3/uL (4.0-11.0) 7.5x10^3/uL (4.0-11.0) Red Blood Count 2.90x10^6/uL (3.50-5.40) 2.69x10^6/uL (3.50-5.40) Hemoglobin 8.6g/dL (12.0-15.5) 8.2g/dL (12.0-15.5) Hematocrit 26.6% (36.0-47.0) 24.3% (36.0-47.0) Mean Corpuscular Volume 92fL (79-100) 90fL (79-100) Mean Corpuscular Hemoglobin 30pg (25-35) 30pg (25-35) Mean Corpuscular Hemoglobin Concent 32g/dL (31-37) 34g/dL (31-37) Red Cell Distribution Width 14.9% (11.5-14.5) 14.4% (11.5-14.5) Platelet Count 232x10^3/uL (140-400) 203x10^3/uL (140-400) Neutrophils (%) (Auto) 64% (31-73) 66% (31-73) Lymphocytes (%) (Auto) 23% (24-48) 24% (24-48) Monocytes (%) (Auto) 10% (0-9) 8% (0-9) Eosinophils (%) (Auto) 2% (0-3) 1% (0-3) Basophils (%) (Auto) 1% (0-3) 0% (0-3) Neutrophils # (Auto) 3.3x10^3uL (1.8-7.7) 5.0x10^3uL (1.8-7.7) Lymphocytes # (Auto) 1.2x10^3/uL (1.0-4.8) 1.8x10^3/uL (1.0-4.8) Monocytes # (Auto) 0.5x10^3/uL (0.0-1.1) 0.6x10^3/uL (0.0-1.1) Eosinophils # (Auto) 0.1x10^3/uL (0.0-0.7) 0.1x10^3/uL (0.0-0.7) Basophils # (Auto) 0.0x10^3/uL (0.0-0.2) 0.0x10^3/uL (0.0-0.2) Prothrombin Time 12.5SEC (11.7-14.0) Prothromb Time International Ratio 1.0 (0.8-1.1) Troponin I Quantitative < 0.017ng/mL (0.000-0.055) YV-Zkn-A-Type Natriuretic Peptide 8182pg/mL (0-449) Glucose (Fingerstick) 157mg/dL (70-99) Sodium Level 135mmol/L (136-145) Potassium Level 3.6mmol/L (3.5-5.1) Chloride Level 99mmol/L (98-107) Carbon Dioxide Level 30mmol/L (21-32) Anion Gap 6 (6-14) Blood Urea Nitrogen 38mg/dL (7-20) Creatinine 1.7mg/dL (0.6-1.0) Estimated GFR (Cockcroft-Gault) 28.6 BUN/Creatinine Ratio 22 (6-20) Glucose Level 191mg/dL (70-99) Calcium Level 9.2mg/dL (8.5-10.1) Magnesium Level 2.0mg/dL (1.8-2.4) Total Bilirubin 0.4mg/dL (0.2-1.0) Aspartate Amino Transf (AST/SGOT) 25U/L (15-37) Alanine Aminotransferase (ALT/SGPT) 22U/L (14-59) Alkaline Phosphatase 55U/L (46-116) Creatine Kinase 129U/L (26-192) Total Protein 6.4g/dL (6.4-8.2) Albumin 2.5g/dL (3.4-5.0) Albumin/Globulin Ratio 0.6 (1.0-1.7) Triglycerides Level 128mg/dL (0-150) Cholesterol Level 105mg/dL (0-200) LDL Cholesterol, Calculated 43mg/dL (0-100) VLDL Cholesterol, Calculated 26mg/dL (0-40) HDL Cholesterol 36mg/dL (40-60) Cholesterol/HDL Ratio 2.9 Thyroid Stimulating Hormone (TSH) 1.249uIU/mL (0.358-3.74) Test 10/07/16 07:17 10/07/16 11:35 10/07/16 14:19 10/07/16 16:55 Glucose (Fingerstick) 164mg/dL (70-99) 179mg/dL (70-99) 159mg/dL (70-99) Stool Occult Blood Negative (NEG) Test 10/07/16 21:04 10/08/16 03:35 10/08/16 07:39 Glucose (Fingerstick) 125mg/dL (70-99) 129mg/dL (70-99) White Blood Count 7.4x10^3/uL (4.0-11.0) Red Blood Count 2.68x10^6/uL (3.50-5.40) Hemoglobin 7.8g/dL (12.0-15.5) Hematocrit 24.7% (36.0-47.0) Mean Corpuscular Volume 92fL (79-100) Mean Corpuscular Hemoglobin 29pg (25-35) Mean Corpuscular Hemoglobin Concent 32g/dL (31-37) Red Cell Distribution Width 14.6% (11.5-14.5) Platelet Count 213x10^3/uL (140-400) Neutrophils (%) (Auto) 81% (31-73) Lymphocytes (%) (Auto) 12% (24-48) Monocytes (%) (Auto) 7% (0-9) Eosinophils (%) (Auto) 1% (0-3) Basophils (%) (Auto) 1% (0-3) Neutrophils # (Auto) 6.0x10^3uL (1.8-7.7) Lymphocytes # (Auto) 0.9x10^3/uL (1.0-4.8) Monocytes # (Auto) 0.5x10^3/uL (0.0-1.1) Eosinophils # (Auto) 0.0x10^3/uL (0.0-0.7) Basophils # (Auto) 0.0x10^3/uL (0.0-0.2) Laboratory Tests Test 10/07/16 11:35 10/07/16 14:19 10/07/16 16:55 10/07/16 21:04 Glucose (Fingerstick) 179mg/dL (70-99) 159mg/dL (70-99) 125mg/dL (70-99) Stool Occult Blood Negative (NEG) Test 10/08/16 03:35 10/08/16 07:39 White Blood Count 7.4x10^3/uL (4.0-11.0) Red Blood Count 2.68x10^6/uL (3.50-5.40) Hemoglobin 7.8g/dL (12.0-15.5) Hematocrit 24.7% (36.0-47.0) Mean Corpuscular Volume 92fL (79-100) Mean Corpuscular Hemoglobin 29pg (25-35) Mean Corpuscular Hemoglobin Concent 32g/dL (31-37) Red Cell Distribution Width 14.6% (11.5-14.5) Platelet Count 213x10^3/uL (140-400) Neutrophils (%) (Auto) 81% (31-73) Lymphocytes (%) (Auto) 12% (24-48) Monocytes (%) (Auto) 7% (0-9) Eosinophils (%) (Auto) 1% (0-3) Basophils (%) (Auto) 1% (0-3) Neutrophils # (Auto) 6.0x10^3uL (1.8-7.7) Lymphocytes # (Auto) 0.9x10^3/uL (1.0-4.8) Monocytes # (Auto) 0.5x10^3/uL (0.0-1.1) Eosinophils # (Auto) 0.0x10^3/uL (0.0-0.7) Basophils # (Auto) 0.0x10^3/uL (0.0-0.2) Glucose (Fingerstick) 129mg/dL (70-99) Medications Active Scripts Medications Dose Route/Sig Days Date Category Potassium 99 Mg Tablet 90 Mg PO DAILY 10/07/16 Reported Atorvastatin Calcium 40 Mg Tablet 1 Tab PO QHS 10/07/16 Reported Amlodipine Besylate 5 Mg Tablet 5 Mg PO DAILY 10/07/16 Reported Pioglitazone Hcl 30 Mg Tablet 30 Mg PO DAILY 10/07/16 Reported Metoprolol Tartrate 50 Mg Tablet 50 Mg PO BID 10/07/16 Reported Losartan Potassium 100 Mg Tablet 100 Mg PO DAILY 10/07/16 Reported Bumetanide 2 Mg Tablet 2 Mg PO DAILY 10/07/16 Reported Humulin N (Nph, Human Insulin Isophane) 100 Unit/1 Ml Vial 8 Unit SQ QHS 10/07/16 Reported Humulin N (Nph, Human Insulin Isophane) 100 Unit/1 Ml Vial 6 Unit SQ DAILYAC 10/07/16 Reported Humulin R (Insulin Regular, Human) 100 Unit/1 Ml Vial 8 Unit IJ DAILYBFRSUP 10/07/16 Reported Aspirin 81 Mg Tab.chew 1 Tab PO DAILY 10/07/16 Reported Vitamin D (Cholecalciferol (Vitamin D3)) 1,000 Unit Capsule 2 Cap PO DAILY 10/07/16 Reported Fish Oil 1,200 Mg Softgel ([place]-3S/Dha/Epa/Fish Oil) 1 Each Capsule 10/07/16 Reported Impression . 1. Status post mechanical fall with no evidence of any syncopal episode prior to the fall. Now is status post laceration of her scalp. 2. Severe pulmonary hypertension. Etiology could be primary pulmonary hypertension. She has minimal history of tobacco use. She has no history of deep vein thrombosis or pulmonary embolism, She has no significant valvular heart disease, and I clinically do not suspect any interstitial lung disease. I have reviewed the V/Q scan myself and d/w Dr Barrios this am. Its low prob vs ? intermediate. Certainly not high Prob. Noncontrast CT chest c/w mild very interstitial edema and small effusions. She is not the best optimum candidate for a right and a left heart catheterization. 3. Minimal history of tobacco use. Plan . 1. Assess the need for home oxygen 2. No need for CTA chest due to renal insufficiency 3. Can dc lovenox due to anemia. 4. mild diuresis. 5. Not the best optimum candidate for a right and a left heart catheterization at her advanced age. 6. 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
[2016-10-08] MEDS ORDERED: AMLODIPINE BESYLATE 5 MG TABLET. PO SCH (09:00)
[2016-10-08] MEDS: BUMETANIDE 1 MG TABLET. PO SCH ×3 (09:00→17:02)
--- NOTE | 2016-10-08 09:01 | PDOC ---
CARDIO Progress Notes Date and Time Date of Service 10/08/2016 Time of Evaluation 1130 Subjective Subjective: No Chest Pain, No shortness of breath, No Palpitations, No Dizziness Vitals Vitals Vital Signs Date Time Temp Pulse Resp B/P Pulse Ox O2 Delivery O2 Flow Rate FiO2 10/08/16 07:00 98.1 76 18 107/85 95 Nasal Cannula 2.0 98.1 Weight Weight [ ] Input and Output Intake and Output Intake and Output 10/08/16 06:59 Intake Total 1190 ml Balance 1190 ml Intake Oral 1140 ml IV Total 50 ml # Voids 5 Laboratory Labs Laboratory Tests Test 10/07/16 11:35 10/07/16 14:19 10/07/16 16:55 10/07/16 21:04 Glucose (Fingerstick) 179mg/dL (70-99) 159mg/dL (70-99) 125mg/dL (70-99) Stool Occult Blood Negative (NEG) Test 10/08/16 03:35 10/08/16 07:39 White Blood Count 7.4x10^3/uL (4.0-11.0) Red Blood Count 2.68x10^6/uL (3.50-5.40) Hemoglobin 7.8g/dL (12.0-15.5) Hematocrit 24.7% (36.0-47.0) Mean Corpuscular Volume 92fL (79-100) Mean Corpuscular Hemoglobin 29pg (25-35) Mean Corpuscular Hemoglobin Concent 32g/dL (31-37) Red Cell Distribution Width 14.6% (11.5-14.5) Platelet Count 213x10^3/uL (140-400) Neutrophils (%) (Auto) 81% (31-73) Lymphocytes (%) (Auto) 12% (24-48) Monocytes (%) (Auto) 7% (0-9) Eosinophils (%) (Auto) 1% (0-3) Basophils (%) (Auto) 1% (0-3) Neutrophils # (Auto) 6.0x10^3uL (1.8-7.7) Lymphocytes # (Auto) 0.9x10^3/uL (1.0-4.8) Monocytes # (Auto) 0.5x10^3/uL (0.0-1.1) Eosinophils # (Auto) 0.0x10^3/uL (0.0-0.7) Basophils # (Auto) 0.0x10^3/uL (0.0-0.2) Glucose (Fingerstick) 129mg/dL (70-99) Physical Exam HEENT: Neck Supple W Full Motion Chest: Symmetric LUNGS: Other (faint bibasilar crackles with O2 supplement) Heart: S1S2, RRR (SR), murmurs (3/6 systolic murmur to LLS border) Abdomen: Soft N/T Extremities: No Calf Tenderness, Other (1+ bilateral LE pitting edema) Neurology: alert, oriented, follow commands Assessment Assessment 1. Severe pulmonary HTN: PPH vs secondary. Pulmonary following 2. Acute on chronic diastolic CHF: improved 3. Tachyarrhythmia: 2 episodes of paroxysmal AFIB with aberrancy yesterday. Multiple risk factors. 4. Mechanical fall with contusion: no presyncopal symptoms 5. Normocytic anemia: Hgb 7.8 today , possible chronic loss per GI 6. Protein malnutrition/frailty 7. DM2/HLP: controlled 8. HTN: controlled. NO orthostasis. 9. CAD/PAD: stable 10. 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 prerenal. improved Recommendations 1. Continue with bumex therapy, Maintain po hydration. Strict I & O 2. Discussed significantly regarding treatment plan and does not want any invasive procedures. 3. Hold losartan for now. Continue with BB. Norvasc to continue if BP allows. 4. Not candidate for OAC/NOAC with advanced age and anemia. Continue with ASA for stroke prevention 5. V/Q and CT chest reviewed and follow pulmonary recommendations 6. Continue supportive care TERESA JUNIOR DETACKER Oct 08, 2016 09:01
[2016-10-08 09:56] LABS: ALBUMIN 2.5 g/dL (3.4-5.0); ALBUMIN/GLOBULIN RATIO 0.6 (1.0-1.7); CALCIUM 9.4 mg/dL (8.5-10.1); CREATININE 1.6 mg/dL (0.6-1.0); GFR 30.6; POTASSIUM 3.9 mmol/L (3.5-5.1); TOTAL BILIRUBIN 0.5 mg/dL (0.2-1.0); TOTAL PROTEIN 6.4 g/dL (6.4-8.2)
[2016-10-08] MEDS: METOPROLOL TART IMMED RELEASE 25 MG TABLET. PO SCH ×2 (11:47→21:16)
[2016-10-08] MEDS: ASPIRIN CHEWABLE 81 MG TABLET. PO SCH (11:47)
[2016-10-08] MEDS: CHOLECALCIFEROL (VITAMIN D3) 1,000 UNIT TABLET PO SCH (11:48)
--- NOTE | 2016-10-08 12:51 | PDOC ---
G I PROGRESS NOTE Reason for Follow-up Chronic blood loss anemia Subjective Patient doesn't wish to pursue Gi work up with potential risks Physical Exam Lungs decreased BS CV S1 S2 ABD +BS, soft, nontender Review of Relevant I have reviewed the following items mary (where applicable) has been applied. Labs Laboratory Tests Test 10/06/16 16:57 10/06/16 21:48 10/07/16 03:40 10/07/16 03:43 White Blood Count 5.2x10^3/uL (4.0-11.0) 7.5x10^3/uL (4.0-11.0) Red Blood Count 2.90x10^6/uL (3.50-5.40) 2.69x10^6/uL (3.50-5.40) Hemoglobin 8.6g/dL (12.0-15.5) 8.2g/dL (12.0-15.5) Hematocrit 26.6% (36.0-47.0) 24.3% (36.0-47.0) Mean Corpuscular Volume 92fL (79-100) 90fL (79-100) Mean Corpuscular Hemoglobin 30pg (25-35) 30pg (25-35) Mean Corpuscular Hemoglobin Concent 32g/dL (31-37) 34g/dL (31-37) Red Cell Distribution Width 14.9% (11.5-14.5) 14.4% (11.5-14.5) Platelet Count 232x10^3/uL (140-400) 203x10^3/uL (140-400) Neutrophils (%) (Auto) 64% (31-73) 66% (31-73) Lymphocytes (%) (Auto) 23% (24-48) 24% (24-48) Monocytes (%) (Auto) 10% (0-9) 8% (0-9) Eosinophils (%) (Auto) 2% (0-3) 1% (0-3) Basophils (%) (Auto) 1% (0-3) 0% (0-3) Neutrophils # (Auto) 3.3x10^3uL (1.8-7.7) 5.0x10^3uL (1.8-7.7) Lymphocytes # (Auto) 1.2x10^3/uL (1.0-4.8) 1.8x10^3/uL (1.0-4.8) Monocytes # (Auto) 0.5x10^3/uL (0.0-1.1) 0.6x10^3/uL (0.0-1.1) Eosinophils # (Auto) 0.1x10^3/uL (0.0-0.7) 0.1x10^3/uL (0.0-0.7) Basophils # (Auto) 0.0x10^3/uL (0.0-0.2) 0.0x10^3/uL (0.0-0.2) Prothrombin Time 12.5SEC (11.7-14.0) Prothromb Time International Ratio 1.0 (0.8-1.1) Troponin I Quantitative < 0.017ng/mL (0.000-0.055) JP-Bok-P-Type Natriuretic Peptide 8182pg/mL (0-449) Glucose (Fingerstick) 157mg/dL (70-99) Sodium Level 135mmol/L (136-145) Potassium Level 3.6mmol/L (3.5-5.1) Chloride Level 99mmol/L (98-107) Carbon Dioxide Level 30mmol/L (21-32) Anion Gap 6 (6-14) Blood Urea Nitrogen 38mg/dL (7-20) Creatinine 1.7mg/dL (0.6-1.0) Estimated GFR (Cockcroft-Gault) 28.6 BUN/Creatinine Ratio 22 (6-20) Glucose Level 191mg/dL (70-99) Calcium Level 9.2mg/dL (8.5-10.1) Magnesium Level 2.0mg/dL (1.8-2.4) Total Bilirubin 0.4mg/dL (0.2-1.0) Aspartate Amino Transf (AST/SGOT) 25U/L (15-37) Alanine Aminotransferase (ALT/SGPT) 22U/L (14-59) Alkaline Phosphatase 55U/L (46-116) Creatine Kinase 129U/L (26-192) Total Protein 6.4g/dL (6.4-8.2) Albumin 2.5g/dL (3.4-5.0) Albumin/Globulin Ratio 0.6 (1.0-1.7) Triglycerides Level 128mg/dL (0-150) Cholesterol Level 105mg/dL (0-200) LDL Cholesterol, Calculated 43mg/dL (0-100) VLDL Cholesterol, Calculated 26mg/dL (0-40) HDL Cholesterol 36mg/dL (40-60) Cholesterol/HDL Ratio 2.9 Thyroid Stimulating Hormone (TSH) 1.249uIU/mL (0.358-3.74) Test 10/07/16 07:17 10/07/16 11:35 10/07/16 14:19 10/07/16 16:55 Glucose (Fingerstick) 164mg/dL (70-99) 179mg/dL (70-99) 159mg/dL (70-99) Stool Occult Blood Negative (NEG) Test 10/07/16 21:04 10/08/16 03:35 10/08/16 07:39 10/08/16 11:22 Glucose (Fingerstick) 125mg/dL (70-99) 129mg/dL (70-99) 203mg/dL (70-99) White Blood Count 7.4x10^3/uL (4.0-11.0) Red Blood Count 2.68x10^6/uL (3.50-5.40) Hemoglobin 7.8g/dL (12.0-15.5) Hematocrit 24.7% (36.0-47.0) Mean Corpuscular Volume 92fL (79-100) Mean Corpuscular Hemoglobin 29pg (25-35) Mean Corpuscular Hemoglobin Concent 32g/dL (31-37) Red Cell Distribution Width 14.6% (11.5-14.5) Platelet Count 213x10^3/uL (140-400) Neutrophils (%) (Auto) 81% (31-73) Lymphocytes (%) (Auto) 12% (24-48) Monocytes (%) (Auto) 7% (0-9) Eosinophils (%) (Auto) 1% (0-3) Basophils (%) (Auto) 1% (0-3) Neutrophils # (Auto) 6.0x10^3uL (1.8-7.7) Lymphocytes # (Auto) 0.9x10^3/uL (1.0-4.8) Monocytes # (Auto) 0.5x10^3/uL (0.0-1.1) Eosinophils # (Auto) 0.0x10^3/uL (0.0-0.7) Basophils # (Auto) 0.0x10^3/uL (0.0-0.2) Sodium Level 139mmol/L (136-145) Potassium Level 3.9mmol/L (3.5-5.1) Chloride Level 101mmol/L (98-107) Carbon Dioxide Level 31mmol/L (21-32) Anion Gap 7 (6-14) Blood Urea Nitrogen 30mg/dL (7-20) Creatinine 1.6mg/dL (0.6-1.0) Estimated GFR (Cockcroft-Gault) 30.6 BUN/Creatinine Ratio 19 (6-20) Glucose Level 154mg/dL (70-99) Calcium Level 9.4mg/dL (8.5-10.1) Magnesium Level 2.1mg/dL (1.8-2.4) Total Bilirubin 0.5mg/dL (0.2-1.0) Aspartate Amino Transf (AST/SGOT) 23U/L (15-37) Alanine Aminotransferase (ALT/SGPT) 23U/L (14-59) Alkaline Phosphatase 54U/L (46-116) Total Protein 6.4g/dL (6.4-8.2) Albumin 2.5g/dL (3.4-5.0) Albumin/Globulin Ratio 0.6 (1.0-1.7) Laboratory Tests Test 10/07/16 14:19 10/07/16 16:55 10/07/16 21:04 10/08/16 03:35 Stool Occult Blood Negative (NEG) Glucose (Fingerstick) 159mg/dL (70-99) 125mg/dL (70-99) White Blood Count 7.4x10^3/uL (4.0-11.0) Red Blood Count 2.68x10^6/uL (3.50-5.40) Hemoglobin 7.8g/dL (12.0-15.5) Hematocrit 24.7% (36.0-47.0) Mean Corpuscular Volume 92fL (79-100) Mean Corpuscular Hemoglobin 29pg (25-35) Mean Corpuscular Hemoglobin Concent 32g/dL (31-37) Red Cell Distribution Width 14.6% (11.5-14.5) Platelet Count 213x10^3/uL (140-400) Neutrophils (%) (Auto) 81% (31-73) Lymphocytes (%) (Auto) 12% (24-48) Monocytes (%) (Auto) 7% (0-9) Eosinophils (%) (Auto) 1% (0-3) Basophils (%) (Auto) 1% (0-3) Neutrophils # (Auto) 6.0x10^3uL (1.8-7.7) Lymphocytes # (Auto) 0.9x10^3/uL (1.0-4.8) Monocytes # (Auto) 0.5x10^3/uL (0.0-1.1) Eosinophils # (Auto) 0.0x10^3/uL (0.0-0.7) Basophils # (Auto) 0.0x10^3/uL (0.0-0.2) Sodium Level 139mmol/L (136-145) Potassium Level 3.9mmol/L (3.5-5.1) Chloride Level 101mmol/L (98-107) Carbon Dioxide Level 31mmol/L (21-32) Anion Gap 7 (6-14) Blood Urea Nitrogen 30mg/dL (7-20) Creatinine 1.6mg/dL (0.6-1.0) Estimated GFR (Cockcroft-Gault) 30.6 BUN/Creatinine Ratio 19 (6-20) Glucose Level 154mg/dL (70-99) Calcium Level 9.4mg/dL (8.5-10.1) Magnesium Level 2.1mg/dL (1.8-2.4) Total Bilirubin 0.5mg/dL (0.2-1.0) Aspartate Amino Transf (AST/SGOT) 23U/L (15-37) Alanine Aminotransferase (ALT/SGPT) 23U/L (14-59) Alkaline Phosphatase 54U/L (46-116) Total Protein 6.4g/dL (6.4-8.2) Albumin 2.5g/dL (3.4-5.0) Albumin/Globulin Ratio 0.6 (1.0-1.7) Test 10/08/16 07:39 10/08/16 11:22 Glucose (Fingerstick) 129mg/dL (70-99) 203mg/dL (70-99) Medications Current Medications Lidocaine/Sodium Bicarbonate (Buffered Lidocaine 1%) 20 ml 1X ONCE IJ Last administered on 10/06/16 17:50; Start 10/06/16 at 17:00; Stop 10/06/16 at 17:01 ; Status DC Diphtheria/ Tetanus/Acell Pertussis 0.5 ml 0.5 ml ONCE ONCE VAX IM Last administered on 10/06/16 17:49; Start 10/06/16 at 17:00; Stop 10/06/16 at 17:01 ; Status DC Sodium Chloride 500 ml @ 500 mls/hr 1X ONCE IV Last administered on 17:51; Start 10/06/16 at 17:45; Stop 10/06/16 at 18:44; Status DC Sodium Chloride (Iv Sodium Chloride 0.9% 1000ml Bag) 1,000 ml @ 1,000 mls/hr 1X ONCE IV ; Start 10/06/16 at 20:00; Stop 10/06/16 at 20:59; Status DC Ondansetron HCl 4 mg 4 mg PRN Q8HRS PRN IV NAUSEA/VOMITING; Start 10/06/16 at 20:00; Stop 10/07/16 at 19:59; Status DC Sodium Chloride 1,000 ml @ 125 mls/hr Q8H IV Last administered on 10/07/16 00 :05; Start 10/06/16 at 19:59; Stop 10/07/16 at 19:58; Status DC Ceftriaxone Sodium 1 gm/ Sodium Chloride 50 ml @ 100 mls/hr Q24H IV Last administered on 10/07/16 21:34; Start 10/07/16 at 21:00 Azithromycin/ Sodium Chloride (Zithromax/Iv Sodium Chloride 0.9% 250ml) 250 ml @ 250 mls/hr 1X ONCE IV ; Start 10/06/16 at 20:45; Stop 10/06/16 at 21:44; Status UNV Furosemide 40 mg 40 mg 1X ONCE IVP ; Start 10/06/16 at 21:15; Stop 10/06/16 at 21:16; Status DC Azithromycin 250 ml @ 250 mls/hr 1X ONCE IV Last administered on 10/07/16 01 :19; Start 10/06/16 at 21:00; Stop 10/06/16 at 21:59; Status DC Ceftriaxone Sodium (Rocephin 1gm Ivpb For Omni) 50 ml @ 100 mls/hr 1X ONCE IV Last administered on 10/07/16 00:05; Start 10/06/16 at 21:00; Stop 10/06/16 at 21:29; Status DC Aspirin (Children'S Aspirin) 81 mg DAILY PO Last administered on 10/08/16 11: 47; Start 10/07/16 at 10:00 Atorvastatin Calcium (Lipitor) 40 mg QHS PO Last administered on 10/07/16 21: 33; Start 10/07/16 at 21:00 Metoprolol Tartrate (Lopressor) 50 mg BID PO ; Start 10/07/16 at 10:00; Stop at 11:39; Status DC Vitamin D (Vitamin D3) 2,000 unit DAILY PO Last administered on 10/08/16 11:48 ; Start 10/07/16 at 10:00 Pioglitazone HCl (Actos) 30 mg DAILY PO Last administered on 10/07/16 09:49; Start 10/07/16 at 10:00; Stop 10/08/16 at 06:19; Status DC Non-Formulary Medication 90 mg DAILY PO ; Start 10/07/16 at 09:00; Status UNV Insulin Aspart (Novolog) 0-12 UNITS QIDACHS SQ Last administered on 10/08/16 11:51; Start 10/07/16 at 11:30 Metoprolol Tartrate (Lopressor) 25 mg BID PO Last administered on 10/08/16 11: 47; Start 10/07/16 at 21:00 Amlodipine Besylate (Norvasc) 5 mg DAILY PO ; Start 10/08/16 at 09:00; Stop at 09:00; Status DC Bumetanide (Bumex) 1 mg [id number] PO ; Start 10/07/16 at 16:00; Stop 10/08/16 at 11: 44; Status DC Enoxaparin Sodium (Lovenox 30mg Syringe) 30 mg Q24H SQ Last administered on 21:40; Start 10/07/16 at 21:00 Bumetanide (Bumex) 1 mg [id number] PO Last administered on 10/08/16 11:47; Start at 12:00 Active Scripts Active Reported Potassium 99 Mg Tablet 90 Mg PO DAILY Atorvastatin Calcium 40 Mg Tablet 1 Tab PO QHS Amlodipine Besylate 5 Mg Tablet 5 Mg PO DAILY Pioglitazone Hcl 30 Mg Tablet 30 Mg PO DAILY Metoprolol Tartrate 50 Mg Tablet 50 Mg PO BID Losartan Potassium 100 Mg Tablet 100 Mg PO DAILY Bumetanide 2 Mg Tablet 2 Mg PO DAILY Humulin N (Nph, Human Insulin Isophane) 100 Unit/1 Ml Vial 8 Unit SQ QHS Humulin N (Nph, Human Insulin Isophane) 100 Unit/1 Ml Vial 6 Unit SQ DAILYAC Humulin R (Insulin Regular, Human) 100 Unit/1 Ml Vial 8 Unit IJ DAILYBFRSUP Aspirin 81 Mg Tab.chew 1 Tab PO DAILY Vitamin D (Cholecalciferol (Vitamin D3)) 1,000 Unit Capsule 2 Cap PO DAILY Fish Oil 1,200 Mg Softgel ([place]-3S/Dha/Epa/Fish Oil) 1 Each Capsule Vitals/I & O Vital Sign - Last 24 Hours 10/07/16 10/07/16 10/07/16 10/07/16 15:00 19:00 20:00 21:33 Temp 98.1 98.1 Pulse 74 83 83 Resp 20 18 B/P 104/36 113/41 113/41 Pulse Ox 100 92 O2 Delivery Nasal Cannula Room Air Nasal Cannula O2 Flow Rate 2.0 2.0 10/07/16 10/08/16 10/08/16 10/08/16 23:00 03:00 07:00 10:33 Temp 98.5 98.6 98.1 98.8 98.5 98.6 98.1 98.8 Pulse 79 71 76 74 Resp 18 18 18 18 B/P 114/61 110/45 107/85 106/29 112/20 Pulse Ox 92 95 95 93 O2 Delivery Nasal Cannula Nasal Cannula Nasal Cannula Room Air O2 Flow Rate 2.0 2.0 2.0 10/08/16 10/08/16 10/08/16 10/08/16 10:34 11:00 11:02 11:04 Pulse 76 B/P 140/78 130/55 115/55 10/08/16 11:47 Pulse 74 B/P 115/55 Intake and Output 10/07/16 10/07/16 10/08/16 15:00 23:00 07:00 Intake Total 50 ml 1140 ml Balance 50 ml 1140 ml Problem List Problems Medical Problems: (1) Acute and chronic respiratory failure Status: Acute (2) CHF exacerbation Status: Acute (3) Fall Status: Acute (4) Head injury Status: Acute (5) Hypoxia Status: Acute Assessment Chroinc blood loss anemia- etiology to be determined. Malignancy of stomach/ colon in differential. Patient defers further work-up in view of co-morbidities No additional recommendations at this time. Available if further problems should arise. TAMMY MATHIS MD Oct 08, 2016 12:51
--- NOTE | 2016-10-08 15:20 | PDOC2 ---
PALLIATIVE CARE Palliative Care Note Palliative Care Consult requested by Dr. Farias to address goals of care Patient alert. Sitting up in chair. Met with patient, daughter Jania,and patient's sister; Patient has 2 son not able to attend. Patient is . lives alone but has support of her sister and daughter who will be there for caregiving. Diagnosis: Acute on chronic respiratory failure.Acute on chronic diastolic congestive heart failure.Blunt head trauma with laceration.Hypoxia. Coronary artery disease.Type 2 diabetes. Anemia. Acute on chronic renal failure, baseline creatinine of 1.5.. Severe pulmonary hypertension (PA pressure 92) Patient states "I'm 86 and I don't want anything else done" Discussed hospice as support when patient goes home. Family is familiar with hospice services. No preference of agency,. DME; oxygen. Spoke with [facility] who will assist with discharge plan; Dr. Farias contacted and aware of plan DNR/DNI signed --will need physician signature. DYANA COBB Oct 08, 2016 15:20
[2016-10-08] MEDS: CEFTRIAXONE SODIUM 1 GM in IV NORMAL SALINE 50ML 50 ML IV SCH (21:13)
[2016-10-08] MEDS: ATORVASTATIN CALCIUM 40 MG TABLET. PO SCH (21:21)
[2016-10-08] MEDS: ENOXAPARIN 30 MG/0.3 ML SYRINGE. SQ SCH (21:44)
[2016-10-09 03:29] VITALS: BP 119/58
[2016-10-09] MEDS: BUMETANIDE 1 MG TABLET. PO SCH (06:11)
[2016-10-09 07:00] VITALS: BP 133/46
[2016-10-09] MEDS: INSULIN ASPART 300 UNITS/3 ML INSULN.PEN SQ SCH ×2 (07:30→11:51)
--- NOTE | 2016-10-09 08:43 | PDOC ---
PULMONARY PROGRESS NOTES Subjective no soa wants to go home Vitals Vital Signs Date Time Temp Pulse Resp B/P Pulse Ox O2 Delivery O2 Flow Rate FiO2 10/09/16 07:00 98.3 70 16 133/46 96 Nasal Cannula 2.0 98.3 General: Alert, No acute distress Lungs: Clear Cardiovascular: S1 Abdomen: Soft Neuro Exam: Alert Extremities: Other (1+edema, echymosis right cheek) Labs Laboratory Tests Test 10/07/16 11:35 10/07/16 14:19 10/07/16 16:55 10/07/16 21:04 Glucose (Fingerstick) 179mg/dL (70-99) 159mg/dL (70-99) 125mg/dL (70-99) Stool Occult Blood Negative (NEG) Test 10/08/16 03:35 10/08/16 07:39 10/08/16 11:22 10/08/16 15:55 White Blood Count 7.4x10^3/uL (4.0-11.0) Red Blood Count 2.68x10^6/uL (3.50-5.40) Hemoglobin 7.8g/dL (12.0-15.5) Hematocrit 24.7% (36.0-47.0) Mean Corpuscular Volume 92fL (79-100) Mean Corpuscular Hemoglobin 29pg (25-35) Mean Corpuscular Hemoglobin Concent 32g/dL (31-37) Red Cell Distribution Width 14.6% (11.5-14.5) Platelet Count 213x10^3/uL (140-400) Neutrophils (%) (Auto) 81% (31-73) Lymphocytes (%) (Auto) 12% (24-48) Monocytes (%) (Auto) 7% (0-9) Eosinophils (%) (Auto) 1% (0-3) Basophils (%) (Auto) 1% (0-3) Neutrophils # (Auto) 6.0x10^3uL (1.8-7.7) Lymphocytes # (Auto) 0.9x10^3/uL (1.0-4.8) Monocytes # (Auto) 0.5x10^3/uL (0.0-1.1) Eosinophils # (Auto) 0.0x10^3/uL (0.0-0.7) Basophils # (Auto) 0.0x10^3/uL (0.0-0.2) Sodium Level 139mmol/L (136-145) Potassium Level 3.9mmol/L (3.5-5.1) Chloride Level 101mmol/L (98-107) Carbon Dioxide Level 31mmol/L (21-32) Anion Gap 7 (6-14) Blood Urea Nitrogen 30mg/dL (7-20) Creatinine 1.6mg/dL (0.6-1.0) Estimated GFR (Cockcroft-Gault) 30.6 BUN/Creatinine Ratio 19 (6-20) Glucose Level 154mg/dL (70-99) Calcium Level 9.4mg/dL (8.5-10.1) Magnesium Level 2.1mg/dL (1.8-2.4) Total Bilirubin 0.5mg/dL (0.2-1.0) Aspartate Amino Transf (AST/SGOT) 23U/L (15-37) Alanine Aminotransferase (ALT/SGPT) 23U/L (14-59) Alkaline Phosphatase 54U/L (46-116) Total Protein 6.4g/dL (6.4-8.2) Albumin 2.5g/dL (3.4-5.0) Albumin/Globulin Ratio 0.6 (1.0-1.7) Glucose (Fingerstick) 129mg/dL (70-99) 203mg/dL (70-99) 201mg/dL (70-99) Test 10/08/16 20:45 10/09/16 06:59 Glucose (Fingerstick) 183mg/dL (70-99) 163mg/dL (70-99) Laboratory Tests Test 10/08/16 11:22 10/08/16 15:55 10/08/16 20:45 10/09/16 06:59 Glucose (Fingerstick) 203mg/dL (70-99) 201mg/dL (70-99) 183mg/dL (70-99) 163mg/dL (70-99) Medications Active Scripts Medications Dose Route/Sig Days Date Category Potassium 99 Mg Tablet 90 Mg PO DAILY 10/07/16 Reported Atorvastatin Calcium 40 Mg Tablet 1 Tab PO QHS 10/07/16 Reported Amlodipine Besylate 5 Mg Tablet 5 Mg PO DAILY 10/07/16 Reported Pioglitazone Hcl 30 Mg Tablet 30 Mg PO DAILY 10/07/16 Reported Metoprolol Tartrate 50 Mg Tablet 50 Mg PO BID 10/07/16 Reported Losartan Potassium 100 Mg Tablet 100 Mg PO DAILY 10/07/16 Reported Bumetanide 2 Mg Tablet 2 Mg PO DAILY 10/07/16 Reported Humulin N (Nph, Human Insulin Isophane) 100 Unit/1 Ml Vial 8 Unit SQ QHS 10/07/16 Reported Humulin N (Nph, Human Insulin Isophane) 100 Unit/1 Ml Vial 6 Unit SQ DAILYAC 10/07/16 Reported Humulin R (Insulin Regular, Human) 100 Unit/1 Ml Vial 8 Unit IJ DAILYBFRSUP 10/07/16 Reported Aspirin 81 Mg Tab.chew 1 Tab PO DAILY 10/07/16 Reported Vitamin D (Cholecalciferol (Vitamin D3)) 1,000 Unit Capsule 2 Cap PO DAILY 10/07/16 Reported Fish Oil 1,200 Mg Softgel ([place]-3S/Dha/Epa/Fish Oil) 1 Each Capsule 10/07/16 Reported Impression . 1. Status post mechanical fall with no evidence of any syncopal episode prior to the fall. Now is status post laceration of her scalp. 2. Severe pulmonary hypertension. Etiology could be primary pulmonary hypertension. She has minimal history of tobacco use. She has no history of deep vein thrombosis or pulmonary embolism, She has no significant valvular heart disease, and I clinically do not suspect any interstitial lung disease. I have reviewed the V/Q scan myself and d/w Dr Barrios. Its low prob vs ? intermediate. Certainly not high Prob. Noncontrast CT chest c/w mild very interstitial edema and small effusions. She is not the best optimum candidate for a right and a left heart catheterization. 3. Minimal history of tobacco use. Plan . 1. Assess the need for home oxygen 2. No need for CTA chest due to renal insufficiency 3. dc lovenox due to anemia. 4. mild diuresis. 5. Not the best optimum candidate for a right and a left heart catheterization at her advanced age. 6. 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
[2016-10-09] MEDS: ASPIRIN CHEWABLE 81 MG TABLET. PO SCH (09:31)
[2016-10-09] MEDS: CHOLECALCIFEROL (VITAMIN D3) 1,000 UNIT TABLET PO SCH (09:32)
[2016-10-09] MEDS: METOPROLOL TART IMMED RELEASE 25 MG TABLET. PO SCH (09:33)
[2016-10-09 11:00] VITALS: BP 95/41
--- NOTE | 2016-10-09 22:49 | DS ---
DATE OF DISCHARGE: 10/09/2016 ADMITTING DIAGNOSIS: [id number] respiratory failure. SECONDARY DIAGNOSES: 1. Qjpez-of-kngvptf diastolic congestive heart failure. 2. Severe pulmonary hypertension. 3. Blunt head trauma with laceration. 4. Hypoxia. 5. Coronary artery disease. 6. Anemia. 7. Type 2 diabetes. 8. [id number] renal failure. HISTORY OF PRESENT ILLNESS AND HOSPITAL COURSE: This patient is an 86-year-old female with known history of congestive heart failure, found to be progressively short of breath over the weekend and sustained a fall, which she said happened when she tripped trying to do some gardening. She has significant laceration, which were sutured in the Emergency Room, but continued to have persistent hypoxia. Throughout the Emergency Room course, she was admitted for pulmonary toilet and further evaluation and treatment of congestive heart failure. She was found to have significant pulmonary hypertension by echo with PA pressures of over 90. The patient was also found to be significantly anemic. During evaluation, patient refused and declined further workup for anemia or for ongoing pulmonary hypertension. The patient wished to have more comfort measures in place and to be discharged to home. She did agree to hospice and do not resuscitate status and plans for discharge to home per patient's wishes were made. The patient will be followed by Dr. Tavera and ____ hospice with hospice physician has to be determined at a later date. DISCHARGE MEDICATIONS: Will be as follows: Atorvastatin 40 mg daily, vitamin D 1000 International Units daily, insulin Humulin R 8 units with breakfast and dinner, NPH 6 units with breakfast and 8 units with bedtime, omega 3 fatty acids [id number], potassium 90 mg p.o. daily, Bumex 1 mg daily, metoprolol 25 mg b.i.d., amlodipine, aspirin, losartan, and Actos will be discontinued. The patient will have comfort ____ per hospice care. SUSAN JOHNSON MD DR: NICK/luz JOB#: [id number] / [id number]
== END 2016-10-09 14:25 | disposition home health service (06) | DRG 377 ==
LOC: ER 16:41 → 4 NORTH 19:36
PROVIDERS: ADMIT Family Medicine; ATTEND Family Medicine
PROC: 0HQ0XZZ Repair Scalp Skin, External Approach (ICD-10-PCS; principal; 2016-10-06)
DX: K92.1 Melena (principal); I50.33 Acute on chronic diastolic (congestive) heart failure; J96.21 Acute and chronic respiratory failure with hypoxia; N17.9 Acute kidney failure, unspecified; I13.0 Hypertensive heart and chronic kidney disease with heart failure and stage 1 through stage 4 chronic kidney disease, or unspecified chronic kidney disease; E46 Unspecified protein-calorie malnutrition; Z68.41 Body mass index [BMI] 40.0-44.9, adult; N18.4 Chronic kidney disease, stage 4 (severe); D50.0 Iron deficiency anemia secondary to blood loss (chronic); E03.9 Hypothyroidism, unspecified; E11.22 Type 2 diabetes mellitus with diabetic chronic kidney disease; E11.319 Type 2 diabetes mellitus with unspecified diabetic retinopathy without macular edema; E11.649 Type 2 diabetes mellitus with hypoglycemia without coma; E78.00 Pure hypercholesterolemia, unspecified; E78.5 Hyperlipidemia, unspecified; I25.10 Atherosclerotic heart disease of native coronary artery without angina pectoris; I27.2 Other secondary pulmonary hypertension; I44.7 Left bundle-branch block, unspecified; I48.0 Paroxysmal atrial fibrillation; Z51.5 Encounter for palliative care; W18.39XA Other fall on same level, initial encounter; S01.01XA Laceration without foreign body of scalp, initial encounter; Z66 Do not resuscitate; Z79.82 Long term (current) use of aspirin; Z83.3 Family history of diabetes mellitus; Z87.891 Personal history of nicotine dependence; Z90.49 Acquired absence of other specified parts of digestive tract; Z95.1 Presence of aortocoronary bypass graft; Y93.H2 Activity, gardening and landscaping; Y92.89 Other specified places as the place of occurrence of the external cause; Y99.8 Other external cause status
CPT/HCPCS: 12014; 36415; 70450; 71010; 71250; 72125; 78582; 80048; 80053; 80061; 82274; 82550; 82947; 83735; 83880; 84443; 84484; 85027; 85610; 90471; 90715; 93005; 93306; 93970; 94620; 96360; 96374; A9540; A9558; J0456; J0690; J0696; J1650; J1815; J7030; J7040; 97116; 97530; 99285-25

== ENCOUNTER 2016-10-14 11:34 | Inpatient (IN) | payer MEDICARE, OTHER ==
[~2016-10-14] VITALS: Ht 144.8 cm; Wt 77.1 kg
[~2016-10-14 11:34] MED LIST: AMLO5TAB2 PO; ASPI81TA2 PO; ATOR40TA59 PO; BUME2TAB PO; CHOL100013 PO; INSU100V5 IJ; LOSA100T6 PO; METO50TA2 PO; NPH,100V SQ; OMEG1CAP61; PIOG30TA3 PO; POTA99TA10 PO
[2016-10-14] MEDS ORDERED: IPRATRPIUM/ALBUTEROL 0.5/2.5MG 3 ML NEBU. NEB ONE (12:30)
--- NOTE | 2016-10-14 12:52 | PHYS DOC ---
Past Medical History Past Medical History: CAD, Diabetes-Type II, Hypertension, Hypothyroid Past Surgical History: Angioplasty, Appendectomy, Coronary Bypass Surgery, Other Additional Past Surgical Histo: STENT PLACEMENT Alcohol Use: None Drug Use: None Adult General Chief Complaint Chief Complaint: SUTURE/STAPLE REMOVAL HPI HPI Patient is a 86 year old female who presents with cough. The patient's says she initially was coming in for suture removal. She had a fall 7 days ago with suture placement to the right side of her face. She denies any problems with the sutures, no erythema, warmth, swelling, fevers, purulent drainage. No significant headache and no new neurologic deficits. She was like the sutures removed. However she states she has also had 2 week history of cough productive of yellow sputum associated with shortness of breath at rest. She has experienced sweats and chills but not sure if she has had a fever. Denies chest pain. Reports increased bilateral lower extremity swelling without calf pain. She reports history of CAD status post CABG, has had pneumonia recently. She states she was recently put on home oxygen although she is not sure exactly why. She normally is on 2 L although she appeared here today on room air. Her PCP is Dr. 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 Review of Systems Review of Systems Constitutional: Reports sweats and chills HENT: Denies nasal congestion or sore throat Respiratory: Reports cough and shortness of breath Cardiovascular: Denies chest pain, reports edema GI: Denies abdominal pain, nausea, vomiting, or diarrhea : Denies dysuria or hematuria Musculoskeletal: Denies back pain or joint pain Integument: Denies rash or skin lesions, requests suture removal Neurologic: Denies headache, focal weakness or sensory changes Current Medications Current Medications Current Medications Medications (Trade) Dose Ordered Sig/Aquiles Start Time Stop Time Status Last Admin Dose Admin Acetaminophen (Tylenol) 650 mg PRN Q4HRS PRN 10/14/16 14:45 10/15/16 14:44 Albuterol/ Ipratropium (Duoneb) 3 ml RTQID 10/14/16 16:00 10/15/16 15:59 Azithromycin (Zithromax) 500 mg 1X ONCE 10/14/16 14:45 10/14/16 14:46 DC Fentanyl Citrate 25 mcg 25 mcg PRN Q2HR PRN 10/14/16 14:45 10/15/16 14:44 Ondansetron HCl (Zofran) 4 mg PRN Q8HRS PRN 10/14/16 14:45 10/15/16 14:44 Sodium Chloride (Iv Sodium Chloride 0.9% 1000ml Bag) 1,000 ml @ 75 mls/hr [id number] 10/14/16 14:41 10/15/16 04:00 Allergies Allergies Allergies Coded Allergies Type Severity Reaction Last Updated Verified No Known Drug Allergies 04/07/15 No Physical Exam Physical Exam Constitutional: Obese, no acute distress, non-toxic appearance. HENT: Normocephalic, atraumatic, bilateral external ears normal, oropharynx moist, nose normal. Sutures to right forehead and lateral to the right eye, well -healed laceration, no erythema/warmth/swelling, no purulent drainage Eyes: conjunctiva normal, no discharge. Neck: supple, no stridor. Cardiovascular: RRR, no murmurs, 3+ pitting edema to bilateral lower extremities. Lungs & Thorax: Diminished, clear throughout, frequent cough, no wheezing, no respiratory distress. Abdomen: soft, nontender, nondistended. Skin: Warm, dry, no erythema, no rash. Back: No tenderness. Extremities: No tenderness, 3+ pitting edema to bilateral lower extremities without calf pain. Neurologic: Alert and oriented X 3, no focal deficits noted. Psychologic: Affect normal, judgement normal, mood normal. Current Patient Data Vital Signs Vital Signs Date Time Temp Pulse Resp B/P Pulse Ox O2 Delivery O2 Flow Rate FiO2 10/14/16 12:41 96 Nasal Cannula 2.0 10/14/16 11:47 98.2 65 20 129/76 98.2 Lab Values Laboratory Tests Test 10/14/16 13:00 White Blood Count 9.8x10^3/uL (4.0-11.0) Red Blood Count 2.73x10^6/uL (3.50-5.40) L Hemoglobin 8.1g/dL (12.0-15.5) L Hematocrit 24.9% (36.0-47.0) L Mean Corpuscular Volume 91fL (79-100) Mean Corpuscular Hemoglobin 30pg (25-35) Mean Corpuscular Hemoglobin Concent 33g/dL (31-37) Red Cell Distribution Width 14.7% (11.5-14.5) H Platelet Count 219x10^3/uL (140-400) Neutrophils (%) (Auto) 84% (31-73) H Lymphocytes (%) (Auto) 10% (24-48) L Monocytes (%) (Auto) 5% (0-9) Eosinophils (%) (Auto) 0% (0-3) Basophils (%) (Auto) 1% (0-3) Neutrophils # (Auto) 8.2x10^3uL (1.8-7.7) H Lymphocytes # (Auto) 1.0x10^3/uL (1.0-4.8) Monocytes # (Auto) 0.5x10^3/uL (0.0-1.1) Eosinophils # (Auto) 0.0x10^3/uL (0.0-0.7) Basophils # (Auto) 0.1x10^3/uL (0.0-0.2) Sodium Level 125mmol/L (136-145) L Potassium Level 3.4mmol/L (3.5-5.1) L Chloride Level 86mmol/L (98-107) L Carbon Dioxide Level 32mmol/L (21-32) Anion Gap 7 (6-14) Blood Urea Nitrogen 38mg/dL (7-20) H Creatinine 1.7mg/dL (0.6-1.0) H Estimated GFR (Cockcroft-Gault) 28.6 Glucose Level 224mg/dL (70-99) H Calcium Level 9.2mg/dL (8.5-10.1) Troponin I Quantitative 0.018ng/mL (0.000-0.055) GN-[id number]-Type Natriuretic Peptide 3864pg/mL (0-449) H Laboratory Tests 10/14/16 13:00 Laboratory Tests 10/14/16 13:00 EKG EKG interpreted by me: NSR rate 60, no acute ST/T wave changes, LVH, no ectopy.[] Radiology/Procedures Radiology/Procedures PROCEDURE: CHEST AP ONLY Exam: AP portable chest. History: Shortness of breath. Comparison: 10/06/2016. Findings: The heart and mediastinal structures are within normal limits for size. Lungs are without infiltrate. No pneumothorax or pleural effusion is appreciated. Aortic atherosclerosis is seen. Median sternotomy wires are noted. Impression: 1. No acute cardiopulmonary process. DICTATED and SIGNED BY: SUSAN FINNEY MD DATE: 10/14/16 1330[] Course & Med Decision Making Course & Med Decision Making Pertinent Labs and Imaging studies reviewed. (See chart for details) Patient presents with cough. Oxygen saturation stable on 2 L by nasal cannula which is what she states she has been receiving at home. Chest x-ray unremarkable for infiltrate. BNP elevated though less so than previous visit. Patient anemic although appears stable from previous visit. Hyponatremic with sodium of 125. Upon further discussion with family the patient states she is not eating or drinking. All of family expresses concern about her ability to care for herself at home at this time. Given this additional information did recommend admission the hospital for electrolyte management, respiratory management. The patient agrees with the plan of care. Gave gentle hydration with normal saline, anticipate she may need gentle diuresis as well. Discussed with Dr. Arellano who agrees to admit to inpatient status. Nephrology consult to Dr. Armstrong. Patient admitted in stable condition. [] Dragon Disclaimer Dragon Disclaimer This electronic medical record was generated, in whole or in part, using a voice recognition dictation system. Departure Departure Impression: Primary Impression: Hyponatremia Additional Impressions: Hypochloremia Acute bronchitis Chronic respiratory failure Anemia Elevated brain natriuretic peptide (BNP) level Disposition: ADMITTED INPATIENT Condition: STABLE Referrals: CIERRA ARELLANO MD (PCP) Problem Qualifiers HUBERT DARNELL MD Oct 14, 2016 12:52
[2016-10-14 13:16] LABS: BASO # 0.1 x10^3/uL (0.0-0.2); BASO % 1 % (0-3); EOS % 0 % (0-3); HEMATOCRIT 24.9 % (36.0-47.0); HEMOGLOBIN 8.1 g/dL (12.0-15.5); LYMPH % 10 % (24-48); MEAN CORPUSCULAR HEMOGLOBIN 30 pg (25-35); MEAN CORPUSCULAR HGB CONC 33 g/dL (31-37); MEAN CORPUSCULAR VOLUME 91 fL (79-100); MONO % 5 % (0-9); NEUT % 84 % (31-73); PLATELET COUNT 219 x10^3/uL (140-400); RED BLOOD COUNT 2.73 x10^6/uL (3.50-5.40); RED CELL DISTRIBUTION WIDTH 14.7 % (11.5-14.5); WHITE BLOOD COUNT 9.8 x10^3/uL (4.0-11.0)
[2016-10-14 13:36] LABS: CALCIUM 9.2 mg/dL (8.5-10.1); CREATININE 1.7 mg/dL (0.6-1.0); GFR 28.6; POTASSIUM 3.4 mmol/L (3.5-5.1)
--- NOTE | 2016-10-14 13:37 | RAD ---
Exam: AP portable chest. History: Shortness of breath. Comparison: 10/06/2016. Findings: The heart and mediastinal structures are within normal limits for size. Lungs are without infiltrate. No pneumothorax or pleural effusion is appreciated. Aortic atherosclerosis is seen. Median sternotomy wires are noted. Impression: 1. No acute cardiopulmonary process.
[2016-10-14] MEDS ORDERED: IV NORMAL SALINE 1000ML BAG 1,000 ML IV SCH (14:41)
[2016-10-14] MEDS ORDERED: AZITHROMYCIN 250 MG TABLET. PO ONE (14:45)
[2016-10-14] MEDS ORDERED: fentaNYL PF VIAL 100 MCG/2 ML VIAL IV PRN (14:45)
[2016-10-14] MEDS ORDERED: ACETAMINOPHEN 325 MG TABLET. PO PRN ×2 (14:45→23:15)
[2016-10-14] MEDS ORDERED: ONDANSETRON PF 4 MG/2 ML VIAL. IV PRN (14:45)
--- NOTE | 2016-10-14 15:06 | EKG ---
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
[2016-10-14] MEDS: IPRATRPIUM/ALBUTEROL 0.5/2.5MG 3 ML NEBU. NEB SCH ×2 (15:40→19:35)
--- NOTE | 2016-10-14 17:44 | ACF ---
Admission Forms Criteria HYPONATREMIA; HYPERNATREMIA; HYPOKALEMIA; HYPERKALEMIA; HYPOCALCEMIA; HYPERCALCEMIA Clinical Indications for Inpatient Care (Place 'X' for any and all applicable criteria): Ongoing inpatient care may be indicated for ANY ONE of the following [G](1)(2)(3 )(5): [X]I. Hyponatremia with ANY ONE of the following: [X]a) Sodium less than 130 mEq/L (mmol/L) (new) (6)(22) [ ]b) Sodium less than 135 mEq/L (mmol/L) with ANY ONE of the following: [ ]i) Severe medical etiology requiring inpatient management (eg, heart failure, hypovolemia) [ ]ii) Altered mental status [ ]iii) Seizures [ ]II. Hypernatremia with ANY ONE of the following: [ ]a) Sodium greater than 155 mEq/L (mmol/L) [ ]b) Sodium greater than 150 mEq/L (mmol/L) with ANY ONE of the following: [ ] i) Altered mental status [ ]ii) Seizures [ ]iii) Severe medical etiology (eg, hypovolemia, diabetes insipidus) [ ]iv) Severe weakness [ ]v) Severe medical etiology (eg, hemolysis, infection, drug overdose) [ ]III. Hypokalemia with ANY ONE of the following: [ ]a) Potassium less than 2.5 mEq/L (mmol/L) despite outpatient and emergency treatment [ ]b) Potassium less than 3.0 mEq/L (mmol/L) with ANY ONE of the following: [ ]i) Weakness [ ]ii) Cardiac abnormality (eg, arrhythmia, conduction disturbance) [ ]iii) Cardiac ischemia [ ]iv) Ileus [ ]v) Ongoing medical cause requiring inpatient management. ( e.g., acute renal wasting, SIADH) [ ]vi) Other severe symptoms [ ] IV. Hyperkalemia with ANY ONE of the following: [ ]a) Potassium greater than 6.5 mEq/L (mmol/L) [ ]b) Potassium greater than 5 mEq/L (mmol/L) with ANY ONE of the following: [ ]i) Severe ECG findings [H] [ ]ii) Acute worsening of renal failure (creatinine greater than 2.5 mg/dL (221 micromoles/L) or significant elevation for age and size) [ ] V. Hypocalcemia with ANY ONE of the following: [ ]a) Calcium less than 7 mg/dL (1.75 mmol/L) despite outpatient and emergency treatment(19) [ ]b) Calcium less than 8 mg/dL (2 mmol/L) with significant symptoms or findings; examples include: [ ]i) Cardiac abnormality (eg, arrhythmia or conduction disturbance) [ ]ii) Altered mental status [ ]iii) Seizures [ ]iv) Breathing difficulty [ ]v) Muscle spasms [ ]. Hypercalcemia with ANY ONE of the following: [ ]a) Calcium greater than 14 mg/dL (3.5 mmol/L) [ ]b) Calcium greater than 12 mg/dL (3 mmol/L) with ANY ONE of the following: [ ]i) Significant dehydration or hypovolemia as indicated by ANY ONE of the following(2): [ ]1. Clinically significant dehydration as indicated by ANY ONE of the following: [ ]A. Acute loss of weight from baseline (5% of body weight in adults, 9% in pediatric patients) [ ]B. Hemodynamic instability [ ]C. Acute renal failure [ ]D. Serum sodium greater than 150 mEq/L (mmol/L) [ ]2) Dehydration that is persistent indicated by ALL of the following: [ ]A. Oral rehydration therapy not tolerated or insufficient to adequately correct dehydration [ ]B. Appropriate intravenous treatment (eg, fluids ) does not readily correct dehydration ie, after 12 to 24 hours of treatment) [ ]ii) Significant symptoms or findings; examples include: [ ]1) Altered mental status [ ]2) Cardiac abnormality (eg, arrhythmia, conduction disturbance) [ ]3) Cardiac abnormality (eg, arrhythmia, conduction disturbance) The original [employer] content created by [employer] has been revised. The portions of the content which have been revised are identified through the use of italic text or in bold, and [facility] has neither reviewed nor approved the modified material. All other unmodified content is copyright [facility] [employer] Please see references footnoted in the original [facility] [employer] edition 2016 Admission Criteria Met?: Yes DREW ZAIDI Oct 14, 2016 17:44
[2016-10-14 18:15] VITALS: BP 149/44
[2016-10-14 19:00] VITALS: BP 165/40
[2016-10-14] MEDS ORDERED: PNEUMOCOCCAL VAX SCREEN BY RX. MC ONE (19:45)
[2016-10-14] MEDS ORDERED: POTASSIUM CHLORIDE 20 MEQ TABLET.ER. PO ONE (20:45)
[2016-10-14 23:00] VITALS: BP 157/44
--- NOTE | 2016-10-14 23:07 | PDOC ---
Provider Note Provider Note See admission H&P dictation #[id number] Impression: 1. Hyponatremia: 2. Bronchitis: 3: Severe pulm HTN: 4. Anemia: 5. CKD 3: CIERRA ARELLANO MD Oct 14, 2016 23:06
[2016-10-14] MEDS ORDERED: DEXTROSE 50% 25 GM / 50ML DISP.SYRIN. IV PRN (23:15)
[2016-10-14] MEDS ORDERED: ALBUTEROL SULFATE 2.5 MG/3 ML NEBU. NEB PRN (23:15)
[2016-10-15] VITALS (8 sets, daily range): BP systolic 108–168; BP diastolic 23–74
[2016-10-15] MEDS: INSULIN DETEMIR 300 UNITS/3 ML INSULN.PEN. SQ SCH ×3 (02:24→21:01)
[2016-10-15] MEDS: IPRATRPIUM/ALBUTEROL 0.5/2.5MG 3 ML NEBU. NEB SCH ×4 (08:00→19:36)
[2016-10-15] MEDS: BUDESONIDE 0.5 MG/2 ML NEBU. NEB SCH ×2 (08:00→19:36)
[2016-10-15] MEDS: INSULIN ASPART 300 UNITS/3 ML INSULN.PEN SQ SCH ×4 (08:00→16:51)
[2016-10-15 08:49] LABS: ALBUMIN 2.4 g/dL (3.4-5.0); CALCIUM 8.9 mg/dL (8.5-10.1); CREATININE 1.6 mg/dL (0.6-1.0); GFR 30.6; PHOSPHORUS 3.4 mg/dL (2.6-4.7); POTASSIUM 3.8 mmol/L (3.5-5.1)
[2016-10-15 08:53] LABS: BASO % 1 % (0-3); EOS % 0 % (0-3); HEMATOCRIT 22.3 % (36.0-47.0); HEMOGLOBIN 7.7 g/dL (12.0-15.5); LYMPH # 1.8 x10^3/uL (1.0-4.8); LYMPH % 28 % (24-48); MEAN CORPUSCULAR HEMOGLOBIN 31 pg (25-35); MEAN CORPUSCULAR HGB CONC 34 g/dL (31-37); MEAN CORPUSCULAR VOLUME 89 fL (79-100); MONO % 10 % (0-9); NEUT % 61 % (31-73); PLATELET COUNT 216 x10^3/uL (140-400); RED CELL DISTRIBUTION WIDTH 15.1 % (11.5-14.5); WHITE BLOOD COUNT 6.3 x10^3/uL (4.0-11.0)
[2016-10-15] MEDS ORDERED: PNEUMOC CONJ VACC 23-VALENT 0.5 ML VIAL. VAX IM ONE (09:00)
[2016-10-15] MEDS: DOXYCYCLINE HYCLATE 100 MG TABLET PO SCH ×2 (09:22→20:55)
[2016-10-15] MEDS: METOPROLOL TART IMMED RELEASE 50 MG TABLET. PO SCH ×2 (09:25→23:23)
--- NOTE | 2016-10-15 10:18 | PDOC2 ---
CONSULT Date of Consult Date of Consult DATE: 10/15/16 TIME: 10:07 Reason for Consult Reason for Consult: HypONatremia Referring Physician Referring Physician: Dr Tavera Identification/Chief Complaint Chief Complaint SOB Problems: Source Source: Chart review, Patient History of Present Illness Reason for Visit: as dictated Past Medical History Cardiovascular: CAD, CHF, HTN, Hyperlipidemia, Other Pulmonary: No pertinent hx CENTRAL NERVOUS SYSTEM: Other Heme/Onc: Anemia NOS Hepatobiliary: No pertinent hx Psych: No pertinent hx Musculoskeletal: Osteoarthritis Rheumatologic: No pertinent hx Infectious disease: No pertinent hx Renal/: Chronic renal insuff Endocrine: Diabetes, Hypothyroidism Past Surgical History Past Surgical History: Appendectomy, CABG, Other Family History Family History: Diabetes Social History ALCOHOL: none Drugs: None Lives: Alone Current Problem List Problem List Problems Medical Problems: (1) Acute bronchitis Status: Acute (2) Anemia Status: Acute (3) Bronchitis Status: Acute (4) Chronic respiratory failure Status: Acute (5) Elevated brain natriuretic peptide (BNP) level Status: Acute (6) Hypochloremia Status: Acute (7) Hyponatremia Status: Acute Current Medications Current Medications Current Medications Albuterol/ Ipratropium (Duoneb) 3 ml 1X ONCE NEB Last administered on 12:41; Start 10/14/16 at 12:30; Stop 10/14/16 at 12:31; Status DC Azithromycin (Zithromax) 500 mg 1X ONCE PO Last administered on 10/14/16 15: 47; Start 10/14/16 at 14:45; Stop 10/14/16 at 14:46; Status DC Ondansetron HCl (Zofran) 4 mg PRN Q8HRS PRN IV NAUSEA/VOMITING; Start 10/14/16 at 14:45; Stop 10/15/16 at 14:44 Fentanyl Citrate 25 mcg 25 mcg PRN Q2HR PRN IV PAIN; Start 10/14/16 at 14:45; Stop 10/15/16 at 14:44 Sodium Chloride (Iv Sodium Chloride 0.9% 1000ml Bag) 1,000 ml @ 75 mls/hr [id number] IV Last administered on 10/14/16 15:49; Start 10/14/16 at 14:41; Stop 10/15/16 at 04:00; Status DC Acetaminophen (Tylenol) 650 mg PRN Q4HRS PRN PO FEVER; Start 10/14/16 at 14:45 ; Stop 10/14/16 at 23:18; Status DC Albuterol/ Ipratropium (Duoneb) 3 ml RTQID NEB Last administered on 10/14/16 19:35; Start 10/14/16 at 16:00; Stop 10/14/16 at 23:18; Status DC Pneumococcal Polyvalent Vaccine (Do NOT chart on this placeholder) 1 each 1X ONCE MC ; Start 10/14/16 at 19:45; Stop 10/14/16 at 19:46; Status UNV Pneumococcal Polyvalent Vaccine (Pneumovax 23) 0.5 ml ONCE ONCE VAX IM Last administered on 10/15/16 09:31; Start 10/15/16 at 09:00; Stop 10/15/16 at 09:01 ; Status DC Potassium Chloride (Klor-Con) 40 meq 1X ONCE PO Last administered on 21:17; Start 10/14/16 at 20:45; Stop 10/14/16 at 20:46; Status DC Atorvastatin Calcium (Lipitor) 40 mg QHS PO ; Start 10/15/16 at 21:00 Insulin Aspart (Novolog) 8 units DAILYBFRSUP SQ ; Start 10/15/16 at 17:00 Metoprolol Tartrate (Lopressor) 25 mg BID PO Last administered on 10/15/16 09: 25; Start 10/15/16 at 09:00 Insulin Detemir (Levemir) 6 units DAILYAC SQ Last administered on 10/15/16 09: 38; Start 10/15/16 at 07:30 Insulin Detemir (Levemir) 8 units QHS SQ Last administered on 10/15/16 02:24; Start 10/14/16 at 23:30 Albuterol/ Ipratropium (Duoneb) 3 ml RTQID NEB ; Start 10/15/16 at 08:00 Albuterol Sulfate (Ventolin Neb Soln) 2.5 mg PRN Q4HRS PRN NEB SHORTNESS OF BREATH; Start 10/14/16 at 23:15 Insulin Aspart (Novolog) 0-7 UNITS TIDWMEALS SQ ; Start 10/15/16 at 08:00 Dextrose (Dextrose 50%-Water Syringe) 12.5 gm PRN Q15MIN PRN IV SEE COMMENTS; Start 10/14/16 at 23:15 Budesonide (Pulmicort) 0.5 mg RTBID NEB ; Start 10/15/16 at 08:00 Acetaminophen (Tylenol) 650 mg PRN Q6HRS PRN PO MILD PAIN / TEMP; Start at 23:15 Doxycycline Hyclate (Vibra-Tab) 100 mg BID PO Last administered on 10/15/16t 09 :22; Start 10/15/16 at 09:00 Active Scripts Active Metoprolol Tartrate 50 Mg Tablet 25 Mg PO BID Bumetanide 2 Mg Tablet 1 Mg PO DAILY Reported Potassium 99 Mg Tablet 90 Mg PO DAILY Atorvastatin Calcium 40 Mg Tablet 1 Tab PO QHS Humulin N (Nph, Human Insulin Isophane) 100 Unit/1 Ml Vial 8 Unit SQ QHS Humulin N (Nph, Human Insulin Isophane) 100 Unit/1 Ml Vial 6 Unit SQ DAILYAC Humulin R (Insulin Regular, Human) 100 Unit/1 Ml Vial 8 Unit IJ DAILYBFRSUP Vitamin D (Cholecalciferol (Vitamin D3)) 1,000 Unit Capsule 2 Cap PO DAILY Fish Oil 1,200 Mg Softgel ([place]-3S/Dha/Epa/Fish Oil) 1 Each Capsule Allergies Allergies: Coded Allergies: No Known Drug Allergies (Unverified , 04/07/15) ROS Review of System GEN: no Fevers no Chills EYES: no new Visual Complaints ENT: no EN Drainage no Hearing deficiets CVS: no Orthopnea no CP RESP: subj SOB vs fatigue ? MARIE GI: no Nausea no Vomiting : no Dysuria no Urgency HEME: no easy bruising no Palp Ly Nodes NEURO no Focal Weakness no Sz PSYCH: no Suicidal Ideation no Depression SKIN: no Rashes ENDO: no Polyuria or Polydipsia no Hot/Cold Intolerance MU SK: no Arthraigia no Myalgia Physical Exam Physical Exam General Appearance: Awake Alert Oriented x 3 In no Distress Eyes: VIsion Unchanged Conjunctiva Normal, Rt [place] area scar healing EN: No EN Drainage Mucous Memb. moist Neck: + JVD + JVP Supple no Thyromegaly CVS: S1 S2 + Murmur No Gallop No Rub no Edema Resp: + diffuse Rales no Rhonchi no Acc. Muscle use GI: BAS +ve NO Bruit Non Tender Non Distended : no CVA tenderness; no Suprapubic Tenderness SKIN: no Rashes Breast Exam deferred; Rt foreamn in bandage, Mu.Sk: Adequate ROM no Muscle Atrophy Heme: Unable to palpate Obvious LAD no palp Splenomegaly NEURO: Good Strength and Tone Cranial Nerves II - XII grossly intact Psych: not Depressed no Active hallucination Vital Signs Vital Signs Date Time Temp Pulse Resp B/P Pulse Ox O2 Delivery O2 Flow Rate FiO2 10/15/16 09:25 66 108/30 10/15/16 08:37 95 Nasal Cannula 2.0 10/15/16 07:00 98.1 20 98.1 Assessment & Plan MED - suspect VMn from recent diuresis - Creat is better with IVF, 1 more liter of IVF Hyponatremia - susepct due to Vold peeliton - Betterw ith NS Vol dpeltion - IVF as ordered CHF with Sev Pulm HTN and tendency to edema - am concerned that IVF may worsen edema Oliguria - 1L IV NS Discussed Plan of Care and prognosis etc. at length with family. Labs Labs Laboratory Tests Test 10/14/16 13:00 10/14/16 18:48 10/14/16 20:57 10/15/16 07:29 White Blood Count 9.8x10^3/uL (4.0-11.0) Red Blood Count 2.73x10^6/uL (3.50-5.40) Hemoglobin 8.1g/dL (12.0-15.5) Hematocrit 24.9% (36.0-47.0) Mean Corpuscular Volume 91fL (79-100) Mean Corpuscular Hemoglobin 30pg (25-35) Mean Corpuscular Hemoglobin Concent 33g/dL (31-37) Red Cell Distribution Width 14.7% (11.5-14.5) Platelet Count 219x10^3/uL (140-400) Neutrophils (%) (Auto) 84% (31-73) Lymphocytes (%) (Auto) 10% (24-48) Monocytes (%) (Auto) 5% (0-9) Eosinophils (%) (Auto) 0% (0-3) Basophils (%) (Auto) 1% (0-3) Neutrophils # (Auto) 8.2x10^3uL (1.8-7.7) Lymphocytes # (Auto) 1.0x10^3/uL (1.0-4.8) Monocytes # (Auto) 0.5x10^3/uL (0.0-1.1) Eosinophils # (Auto) 0.0x10^3/uL (0.0-0.7) Basophils # (Auto) 0.1x10^3/uL (0.0-0.2) Sodium Level 125mmol/L (136-145) Potassium Level 3.4mmol/L (3.5-5.1) Chloride Level 86mmol/L (98-107) Carbon Dioxide Level 32mmol/L (21-32) Anion Gap 7 (6-14) Blood Urea Nitrogen 38mg/dL (7-20) Creatinine 1.7mg/dL (0.6-1.0) Estimated GFR (Cockcroft-Gault) 28.6 Glucose Level 224mg/dL (70-99) Serum Osmolality 271mOsm/Kg (279-304) Uric Acid 9.5mg/dL (2.6-6.0) Calcium Level 9.2mg/dL (8.5-10.1) Troponin I Quantitative 0.018ng/mL (0.000-0.055) FS-Yyd-I-Type Natriuretic Peptide 3864pg/mL (0-449) Glucose (Fingerstick) 217mg/dL (70-99) 238mg/dL (70-99) 146mg/dL (70-99) Test 10/15/16 07:50 White Blood Count 6.3x10^3/uL (4.0-11.0) Red Blood Count 2.50x10^6/uL (3.50-5.40) Hemoglobin 7.7g/dL (12.0-15.5) Hematocrit 22.3% (36.0-47.0) Mean Corpuscular Volume 89fL (79-100) Mean Corpuscular Hemoglobin 31pg (25-35) Mean Corpuscular Hemoglobin Concent 34g/dL (31-37) Red Cell Distribution Width 15.1% (11.5-14.5) Platelet Count 216x10^3/uL (140-400) Neutrophils (%) (Auto) 61% (31-73) Lymphocytes (%) (Auto) 28% (24-48) Monocytes (%) (Auto) 10% (0-9) Eosinophils (%) (Auto) 0% (0-3) Basophils (%) (Auto) 1% (0-3) Neutrophils # (Auto) 3.8x10^3uL (1.8-7.7) Lymphocytes # (Auto) 1.8x10^3/uL (1.0-4.8) Monocytes # (Auto) 0.7x10^3/uL (0.0-1.1) Eosinophils # (Auto) 0.0x10^3/uL (0.0-0.7) Basophils # (Auto) 0.0x10^3/uL (0.0-0.2) Sodium Level 130mmol/L (136-145) Potassium Level 3.8mmol/L (3.5-5.1) Chloride Level 93mmol/L (98-107) Carbon Dioxide Level 32mmol/L (21-32) Anion Gap 5 (6-14) Blood Urea Nitrogen 34mg/dL (7-20) Creatinine 1.6mg/dL (0.6-1.0) Estimated GFR (Cockcroft-Gault) 30.6 Glucose Level 139mg/dL (70-99) Calcium Level 8.9mg/dL (8.5-10.1) Phosphorus Level 3.4mg/dL (2.6-4.7) Albumin 2.4g/dL (3.4-5.0) Laboratory Tests Test 10/14/16 13:00 10/14/16 18:48 10/14/16 20:57 10/15/16 07:29 White Blood Count 9.8x10^3/uL (4.0-11.0) Red Blood Count 2.73x10^6/uL (3.50-5.40) Hemoglobin 8.1g/dL (12.0-15.5) Hematocrit 24.9% (36.0-47.0) Mean Corpuscular Volume 91fL (79-100) Mean Corpuscular Hemoglobin 30pg (25-35) Mean Corpuscular Hemoglobin Concent 33g/dL (31-37) Red Cell Distribution Width 14.7% (11.5-14.5) Platelet Count 219x10^3/uL (140-400) Neutrophils (%) (Auto) 84% (31-73) Lymphocytes (%) (Auto) 10% (24-48) Monocytes (%) (Auto) 5% (0-9) Eosinophils (%) (Auto) 0% (0-3) Basophils (%) (Auto) 1% (0-3) Neutrophils # (Auto) 8.2x10^3uL (1.8-7.7) Lymphocytes # (Auto) 1.0x10^3/uL (1.0-4.8) Monocytes # (Auto) 0.5x10^3/uL (0.0-1.1) Eosinophils # (Auto) 0.0x10^3/uL (0.0-0.7) Basophils # (Auto) 0.1x10^3/uL (0.0-0.2) Sodium Level 125mmol/L (136-145) Potassium Level 3.4mmol/L (3.5-5.1) Chloride Level 86mmol/L (98-107) Carbon Dioxide Level 32mmol/L (21-32) Anion Gap 7 (6-14) Blood Urea Nitrogen 38mg/dL (7-20) Creatinine 1.7mg/dL (0.6-1.0) Estimated GFR (Cockcroft-Gault) 28.6 Glucose Level 224mg/dL (70-99) Serum Osmolality 271mOsm/Kg (279-304) Uric Acid 9.5mg/dL (2.6-6.0) Calcium Level 9.2mg/dL (8.5-10.1) Troponin I Quantitative 0.018ng/mL (0.000-0.055) MP-Dbw-I-Type Natriuretic Peptide 3864pg/mL (0-449) Glucose (Fingerstick) 217mg/dL (70-99) 238mg/dL (70-99) 146mg/dL (70-99) Test 10/15/16 07:50 White Blood Count 6.3x10^3/uL (4.0-11.0) Red Blood Count 2.50x10^6/uL (3.50-5.40) Hemoglobin 7.7g/dL (12.0-15.5) Hematocrit 22.3% (36.0-47.0) Mean Corpuscular Volume 89fL (79-100) Mean Corpuscular Hemoglobin 31pg (25-35) Mean Corpuscular Hemoglobin Concent 34g/dL (31-37) Red Cell Distribution Width 15.1% (11.5-14.5) Platelet Count 216x10^3/uL (140-400) Neutrophils (%) (Auto) 61% (31-73) Lymphocytes (%) (Auto) 28% (24-48) Monocytes (%) (Auto) 10% (0-9) Eosinophils (%) (Auto) 0% (0-3) Basophils (%) (Auto) 1% (0-3) Neutrophils # (Auto) 3.8x10^3uL (1.8-7.7) Lymphocytes # (Auto) 1.8x10^3/uL (1.0-4.8) Monocytes # (Auto) 0.7x10^3/uL (0.0-1.1) Eosinophils # (Auto) 0.0x10^3/uL (0.0-0.7) Basophils # (Auto) 0.0x10^3/uL (0.0-0.2) Sodium Level 130mmol/L (136-145) Potassium Level 3.8mmol/L (3.5-5.1) Chloride Level 93mmol/L (98-107) Carbon Dioxide Level 32mmol/L (21-32) Anion Gap 5 (6-14) Blood Urea Nitrogen 34mg/dL (7-20) Creatinine 1.6mg/dL (0.6-1.0) Estimated GFR (Cockcroft-Gault) 30.6 Glucose Level 139mg/dL (70-99) Calcium Level 8.9mg/dL (8.5-10.1) Phosphorus Level 3.4mg/dL (2.6-4.7) Albumin 2.4g/dL (3.4-5.0) Images Images Comparison: 10/06/2016. Findings: The heart and mediastinal structures are within normal limits for size. Lungs are without infiltrate. No pneumothorax or pleural effusion is appreciated. Aortic atherosclerosis is seen. Median sternotomy wires are noted. Impression: 1. No acute cardiopulmonary process. Most recent ECHO: The left ventricular systolic function is normal and the ejection fraction is within normal range. The Ejection Fraction is 60-65%. There is normal LV segmental wall motion, septal motion suggestive of conduction deficit. Doppler and Color Flow revealed moderate tricuspid regurgitation. There is severe pulmonary hypertension. The PA pressure was estimated at 92 mmHg. VALERIA WATKINS MD Oct 15, 2016 10:18
[2016-10-15] MEDS ORDERED: IV NORMAL SALINE 1000ML BAG 1,000 ML IV SCH (10:30)
--- NOTE | 2016-10-15 18:15 | PDOC ---
SUBJECTIVE Subjective Still with cough but now dry. Feels like she is doing better overall. Eating okay but not much of an appetite. Swelling is doing better in her legs. OBJECTIVE Vital Signs Vital Signs Date Time Temp Pulse Resp B/P Pulse Ox O2 Delivery O2 Flow Rate FiO2 10/15/16 15:13 Nasal Cannula 2.0 10/15/16 15:03 98.1 64 20 138/37 95 Nasal Cannula 2.0 98.1 10/15/16 11:13 Nasal Cannula 2.0 10/15/16 11:04 127/23 10/15/16 11:02 142/46 10/15/16 11:00 98.0 58 20 136/26 97 Nasal Cannula 2.0 98.0 10/15/16 09:25 66 108/30 10/15/16 08:37 95 Nasal Cannula 2.0 10/15/16 08:00 Nasal Cannula 2.0 10/15/16 07:00 98.1 66 20 108/30 96 Nasal Cannula 2.0 98.1 10/15/16 03:00 97.9 76 18 168/74 91 Room Air 97.9 10/14/16 23:00 98.2 68 18 157/44 95 Room Air 98.2 10/14/16 19:46 Nasal Cannula 2.0 10/14/16 19:35 94 Nasal Cannula 2.0 10/14/16 19:00 98.1 65 18 165/40 91 Room Air 98.1 10/14/16 18:15 97.7 79 20 149/44 95 Room Air 97.7 I & O Intake and Output 10/15/16 07:00 Output Total 250 ml Balance -250 ml Output Urine Total 250 ml # Voids 1 PHYSICAL EXAM Physical Exam General: No acute distress. Sitting in chair with nasal cannula oxygen. Mental status: Alert and oriented at baseline Chest: Still slightly coarse bilaterally but improved over yesterday. She has a rare wheeze. Air movement is generally improved CV: Normal rate. Regular rhythm. No murmur. Abdomen: Normal bowel sounds. Soft. Not distended. No tenderness. No guarding. No rebound. Extremities: 1+ bilateral lower extremity edema. ASSESSMENT/PLAN Assessment/Plan 1. Hyponatremia: Improved today with IV fluids. Likely due to vasomotor etiology and volume depletion. Continue per nephrology. 2. Bronchitis: Doing better with scheduled nebulizer treatments and beginning doxycycline. We'll add Robitussin-DM to help with the cough. 3: Severe pulm HTN: Stable and contributing to the above problems. She will be going home with hospice. 4. Anemia: A little bit lower today. May need to consider transfusion tomorrow if lower. 5. CKD 3: Continue as above. 6. Disposition: We'll see how she does with her sodium on labs tomorrow. She has oxygen at home. We can make arrangements for her nebulizer at home as well at the time of discharge. Hopefully she'll be able to go home the next couple of days. The plan appears to be going back to home with hospice most likely due to her severe pulmonary hypertension Problems: COMMENT Lab Laboratory Tests Test 10/14/16 18:48 10/14/16 20:57 10/15/16 07:29 10/15/16 07:50 Glucose (Fingerstick) 217mg/dL (70-99) 238mg/dL (70-99) 146mg/dL (70-99) White Blood Count 6.3x10^3/uL (4.0-11.0) Red Blood Count 2.50x10^6/uL (3.50-5.40) Hemoglobin 7.7g/dL (12.0-15.5) Hematocrit 22.3% (36.0-47.0) Mean Corpuscular Volume 89fL (79-100) Mean Corpuscular Hemoglobin 31pg (25-35) Mean Corpuscular Hemoglobin Concent 34g/dL (31-37) Red Cell Distribution Width 15.1% (11.5-14.5) Platelet Count 216x10^3/uL (140-400) Neutrophils (%) (Auto) 61% (31-73) Lymphocytes (%) (Auto) 28% (24-48) Monocytes (%) (Auto) 10% (0-9) Eosinophils (%) (Auto) 0% (0-3) Basophils (%) (Auto) 1% (0-3) Neutrophils # (Auto) 3.8x10^3uL (1.8-7.7) Lymphocytes # (Auto) 1.8x10^3/uL (1.0-4.8) Monocytes # (Auto) 0.7x10^3/uL (0.0-1.1) Eosinophils # (Auto) 0.0x10^3/uL (0.0-0.7) Basophils # (Auto) 0.0x10^3/uL (0.0-0.2) Sodium Level 130mmol/L (136-145) Potassium Level 3.8mmol/L (3.5-5.1) Chloride Level 93mmol/L (98-107) Carbon Dioxide Level 32mmol/L (21-32) Anion Gap 5 (6-14) Blood Urea Nitrogen 34mg/dL (7-20) Creatinine 1.6mg/dL (0.6-1.0) Estimated GFR (Cockcroft-Gault) 30.6 Glucose Level 139mg/dL (70-99) Calcium Level 8.9mg/dL (8.5-10.1) Phosphorus Level 3.4mg/dL (2.6-4.7) Albumin 2.4g/dL (3.4-5.0) Test 10/15/16 11:23 10/15/16 16:09 Glucose (Fingerstick) 172mg/dL (70-99) 173mg/dL (70-99) CIRERA ARELLANO MD Oct 15, 2016 18:15
[2016-10-15 19:17] LABS: BILIRUBIN,URINE NEGATIVE (NEG); GLUCOSE,URINE NEGATIVE (NEG); NITRITE,URINE NEGATIVE (NEG); PROTEIN,URINE 100 mg/dL (NEG-TRACE); UROBILINOGEN,URINE 0.2 mg/dL (0.2 mg/dL)
[2016-10-15 19:34] LABS: BACTERIA,URINE FEW /HPF (0-FEW); RBC,URINE 0 /HPF (0-2); SQUAMOUS EPITHELIAL CELL,UR FEW /LPF; WBC,URINE OCC /HPF (0-4)
[2016-10-15] MEDS: ATORVASTATIN CALCIUM 40 MG TABLET. PO SCH (20:55)
[2016-10-15] MEDS: guaiFENesin DM 200MG/20MG 10 ML SYRUP PO SCH (20:55)
--- NOTE | 2016-10-15 21:37 | HP ---
ADMIT DATE: 10/14/2016 ATTENDING PHYSICIAN: Dr. Cierra Arellano. CHIEF COMPLAINT: Cough. HISTORY OF PRESENT ILLNESS: The patient is an 86-year-old female who was recently hospitalized after a fall in which she sustained a relatively significant laceration to her right forehead and anabaptism area. She had been home and came into the Emergency Room for suture removal. At that time, she did not look well, so the Emergency Room physician did further evaluation. The patient had complained of having a cough for the last week or so. It was intermittently productive of yellowish sputum. She was feeling more short of breath. She denied any chest pain or palpitations. She has lower extremity swelling that had been relatively stable. She has severe pulmonary hypertension and she was ____ being placed on hospice for that. PAST MEDICAL HISTORY: Significant for hypertension, hyperlipidemia, coronary artery disease, diabetes mellitus type 2, hypothyroidism. PAST SURGICAL HISTORY: Appendectomy, coronary artery bypass grafting in 2000. FAMILY HISTORY: Noncontributory. SOCIAL HISTORY: The patient smoked in the past. She does not use any alcohol. She is . She lives alone, but she does have assistance and support in the area. ALLERGIES: No known drug allergies. MEDICATIONS: At the time of admission include Lipitor 40 mg p.o. daily, Bumex 2 mg p.o. daily, vitamin D 2000 units p.o. daily, regular human insulin 8 units daily with breakfast and dinner, Lopressor 25 mg p.o. b.i.d., NPH insulin 6 units daily with breakfast and 8 units at bedtime, fish oil 1 p.o. daily, [id number] potassium supplement. REVIEW OF SYSTEMS: The patient denies any fevers that she is aware of. She has not had any recurrent falls. She does have some minimal upper respiratory congestion. She has been swallowing without difficulty. She has not had a good appetite. She does feel short of breath. She has used her oxygen intermittently since her discharge. She has had a cough that is dry and occasionally productive, occasionally with yellowish sputum. She denies any chest pain or palpitations. She denies any nausea, vomiting or diarrhea. She has been voiding. She does have lower extremity swelling. She denies any focal paresthesias or weakness. She feels generally weak. Mood is doing okay. PHYSICAL EXAMINATION: VITAL SIGNS: At the time of admission, temperature 98.2, pulse 65, respiratory rate 20, blood pressure 129/76, O2 sat 79% on room air. GENERAL: The patient is a well-developed and nourished female, mildly ill appearing, but in no acute respiratory distress. She appears to be alert and oriented. HEENT: The pupils are equal and round. The sclerae are anicteric. She does have some injection of the right lower palpebral sclera, which is chronic for her. There is no purulent discharge. The oropharynx is pink and moist. NECK: Does not have any significant JVD. There is no bruit. CHEST: Has significantly decreased air movement throughout with crackles bilaterally and rare expiratory wheezes. Air movement is poor. CARDIOVASCULAR: The heart has a regular rate and rhythm at present. ABDOMEN: Soft, nontender, nondistended. No guarding or rebound. EXTREMITIES: There is 1-2+ edema in the bilateral lower extremities. SKIN: There is a laceration on the right side of the face that appears to be healing without any difficulty. There is no significant erythema. There is no drainage. It is dry, the sutures are out at the time of my exam. PSYCHIATRIC: Mood and affect appear appropriate. LABORATORY DATA: At the time of admission, WBC 9.8, hemoglobin 8.1, hematocrit 24.9, platelets 219. Sodium 125, potassium 3.4, chloride 86, CO2 32, BUN 38, creatinine 1.7, glucose 224, calcium 9.2. Chest x-ray shows lungs without infiltrate, no pneumothorax or pleural effusion. Aortic atherosclerosis is seen, median sternotomy wires are noted. IMPRESSION: 1. Hyponatremia, probably due to diuretic use and poor oral intake. 2. Bronchitis. 3. Severe pulmonary hypertension. 4. Anemia. 5. Chronic kidney disease. PLAN: The patient is admitted. She will be seen in consultation with Nephrology regarding her hyponatremia to help determine fluid replacement. She will need a fine balance between overhydration and pulmonary edema with her underlying lung issues. We will start her on doxycycline. We will schedule nebulizer treatments as she has seemed to have some improvement with that. We will use nebulized steroid treatments and try to avoid oral steroids at this time if possible. Further treatment will depend on how she responds to the above interventions. We will hold her diuretic at this time. CIERRA ARELLANO MD DR: Joelle JOB#: [id number] / [id number]
--- NOTE | 2016-10-16 01:19 | CONS ---
DATE OF CONSULTATION: PRIMARY PHYSICIAN: Dr. Barney Tavera. REASON FOR CONSULTATION: Hyponatremia. HISTORY OF PRESENT ILLNESS: The patient is an 86-year-old female who was on most recent echo noted to have significant pulmonary hypertension. She was also felt to have some amount of underlying CKD with a baseline creatinine of 1.6-1.7. She was in the hospital to have her sutures removed. She is currently also noted to be on hospice. She was felt not to be breathing too well and she is also noted to have some issues with right forearm wound infection and subjective fevers and this timeframe, she was admitted to the hospital for further evaluation and we were consulted for low sodium at 125, potassium was 3.4 and was replaced, her creatinine was 1.7, which appears to be pretty close to her usual baseline. She received IV normal saline overnight and her sodium has improved to 130. Her potassium was replaced well. She still remains oligoanuric, hence 1 more liter of IV fluids will be given. ASSESSMENT AND PLAN: Known chronic kidney disease, creatinine at baseline; however, given the fact that she is oliguric, we will give 1 liter of normal saline. The patient is known to be on hospice and hence no further aggressive evaluation has been undertaken. VALERIA WATKINS MD DR: NAKUL/luz JOB#: [id number] / [id number]
[2016-10-16 03:00] VITALS: BP 158/41
[2016-10-16 04:46] LABS: POTASSIUM 3.6 mmol/L (3.5-5.1)
[2016-10-16 04:57] LABS: ALBUMIN 2.4 g/dL (3.4-5.0); CALCIUM 8.9 mg/dL (8.5-10.1); CREATININE 1.4 mg/dL (0.6-1.0); GFR 35.7; PHOSPHORUS 2.7 mg/dL (2.6-4.7); POTASSIUM 3.7 mmol/L (3.5-5.1)
[2016-10-16 07:00] VITALS: BP 134/56
[2016-10-16] MEDS: IPRATRPIUM/ALBUTEROL 0.5/2.5MG 3 ML NEBU. NEB SCH ×4 (07:41→19:36)
[2016-10-16] MEDS: BUDESONIDE 0.5 MG/2 ML NEBU. NEB SCH ×2 (07:41→19:36)
--- NOTE | 2016-10-16 07:51 | PDOC ---
SUBJECTIVE Subjective Still coughing a little bit. Mostly whitish phlegm being produced now. Still feels tight. No chest pain or palpitations. Eating okay. OBJECTIVE Vital Signs Vital Signs Date Time Temp Pulse Resp B/P Pulse Ox O2 Delivery O2 Flow Rate FiO2 10/16/16 07:43 98 Nasal Cannula 2.0 10/16/16 03:00 98.3 73 18 158/41 97 Nasal Cannula 2.0 98.3 10/15/16 23:23 75 144/32 10/15/16 23:00 98.2 75 18 144/32 97 Nasal Cannula 2.0 98.2 10/15/16 19:40 Nasal Cannula 2.0 10/15/16 19:38 98 Nasal Cannula 2.0 10/15/16 19:38 98 Nasal Cannula 2.0 10/15/16 19:00 98.6 72 20 144/29 96 Nasal Cannula 2.0 98.6 10/15/16 15:13 Nasal Cannula 2.0 10/15/16 15:03 98.1 64 20 138/37 95 Nasal Cannula 2.0 98.1 10/15/16 11:13 Nasal Cannula 2.0 10/15/16 11:04 127/23 10/15/16 11:02 142/46 10/15/16 11:00 98.0 58 20 136/26 97 Nasal Cannula 2.0 98.0 10/15/16 09:25 66 108/30 10/15/16 08:37 95 Nasal Cannula 2.0 10/15/16 08:00 Nasal Cannula 2.0 I & O Intake and Output 10/16/16 07:00 Intake Total 925 ml Balance 925 ml Intake IV Total 925 ml # Voids 4 # Bowel Movements 2 PHYSICAL EXAM Physical Exam General: No acute distress. Sitting in chair with nasal cannula oxygen. Mental status: Alert and oriented at baseline Chest: Still slightly coarse bilaterally but improved over yesterday. She has a rare wheeze. Decreased air movement throughout. CV: Normal rate. Regular rhythm. No murmur. Telemetry yesterday shows a approximately 7 beat run of V. tach. She did also have a 10 beat run on the day prior. Abdomen: Normal bowel sounds. Soft. Not distended. No tenderness. No guarding. No rebound. Extremities: No lower extremity edema. ASSESSMENT/PLAN Assessment/Plan 1. Hyponatremia: Stable today with IV fluids. Likely due to vasomotor etiology and volume depletion. Continue per nephrology. 2. Bronchitis: Doing better with scheduled nebulizer treatments and beginning doxycycline. We'll add Robitussin-DM to help with the cough. 3: Severe pulm HTN: Stable and contributing to the above problems. She will be going home with hospice most likely. 4. Anemia: Recheck CBC in the morning. 5. CKD 3: Continue as above. 6. Episodes of asymptomatic V. tach: Check magnesium level. Cardiology was consulted last night. Adjustments in medications as needed. Patient is likely not interested in any invasive procedures. 7. Disposition: We'll see how she does today. Plan most likely is to go home with hospice due to the pulmonary hypertension, etc. but would like to maximize her function prior to doing that. Physical therapy consulted as well. Problems: COMMENT Lab Laboratory Tests Test 10/15/16 11:23 10/15/16 16:09 10/15/16 18:00 10/15/16 20:47 Glucose (Fingerstick) 172mg/dL (70-99) 173mg/dL (70-99) 217mg/dL (70-99) Urine Collection Type Unknown Urine Color Yellow Urine Clarity Clear Urine pH 6.0 Urine Specific [place] 1.010 Urine Protein 100mg/dL (NEG-TRACE) Urine Glucose (UA) Negativemg/dL (NEG) Urine Ketones (Stick) Negativemg/dL (NEG) Urine Blood Negative (NEG) Urine Nitrite Negative (NEG) Urine Bilirubin Negative (NEG) Urine Urobilinogen Dipstick 0.2mg/dL (0.2 mg/dL) Urine Leukocyte Esterase Negative (NEG) Urine RBC 0/HPF (0-2) Urine WBC Occ/HPF (0-4) Urine Squamous Epithelial Cells Few/LPF Urine Bacteria Few/HPF (0-FEW) Test 10/16/16 03:34 10/16/16 07:07 Sodium Level 130mmol/L (136-145) Potassium Level 3.7mmol/L (3.5-5.1) Chloride Level 94mmol/L (98-107) Carbon Dioxide Level 32mmol/L (21-32) Anion Gap 4 (6-14) Blood Urea Nitrogen 31mg/dL (7-20) Creatinine 1.4mg/dL (0.6-1.0) Estimated GFR (Cockcroft-Gault) 35.7 Glucose Level 148mg/dL (70-99) Calcium Level 8.9mg/dL (8.5-10.1) Phosphorus Level 2.7mg/dL (2.6-4.7) Albumin 2.4g/dL (3.4-5.0) Glucose (Fingerstick) 119mg/dL (70-99) CIERRA ARELLANO MD Oct 16, 2016 07:51
[2016-10-16] MEDS: INSULIN ASPART 300 UNITS/3 ML INSULN.PEN SQ SCH ×4 (08:00→18:24)
[2016-10-16] MEDS: DOXYCYCLINE HYCLATE 100 MG TABLET PO SCH ×2 (09:13→20:57)
[2016-10-16] MEDS: METOPROLOL TART IMMED RELEASE 50 MG TABLET. PO SCH ×2 (09:13→20:58)
[2016-10-16] MEDS: guaiFENesin DM 200MG/20MG 10 ML SYRUP PO SCH ×4 (09:13→20:58)
[2016-10-16] MEDS: INSULIN DETEMIR 300 UNITS/3 ML INSULN.PEN. SQ SCH ×2 (09:16→21:03)
--- NOTE | 2016-10-16 10:59 | PDOC ---
SUBJECTIVE ROS Hyponatremia Feeling better some x cough OBJECTIVE Vital Signs Vital Signs Date Time Temp Pulse Resp B/P Pulse Ox O2 Delivery O2 Flow Rate FiO2 10/16/16 09:13 134/56 10/16/16 07:50 Nasal Cannula 1.0 10/16/16 07:43 98 10/16/16 07:00 98.1 82 22 98.1 I & 0 Intake and Output 10/16/16 06:59 Intake Total 925 ml Balance 925 ml Intake IV Total 925 ml # Voids 4 # Bowel Movements 2 PHYSICAL EXAM Physical Exam General Appearance: Awake Alert Oriented x 3 In no Distress Eyes: VIsion Unchanged Conjunctiva Normal, Rt Episcopal area scar healing EN: No EN Drainage Mucous Memb. moist Neck: + JVD + JVP Supple no Thyromegaly CVS: S1 S2 + Murmur No Gallop No Rub no Edema Resp: + diffuse Rales no Rhonchi no Acc. Muscle use GI: BAS +ve NO Bruit Non Tender Non Distended : no CVA tenderness; no Suprapubic Tenderness Assessment & Plan MED - suspect VMn from recent diuresis - Creat is better with IVF, CKD III - stable for now Hyponatremia - Betterw ith NS Vol dpeltion - better with IVF as ordered; UO picking up CHF with Sev Pulm HTN and tendency to edema - am concerned that IVF may worsen edema so will D/c now and watch Discussed Plan of Care and prognosis etc. at length with family - agree with Hospice will be available prn - pl call COMMENT/RELEVANT DATA Meds Current Medications Medications (Trade) Dose Ordered Sig/Aquiles Start Time Stop Time Status Last Admin Dose Admin Acetaminophen (Tylenol) 650 mg PRN Q6HRS PRN 10/14/16 23:15 Albuterol Sulfate (Ventolin Neb Soln) 2.5 mg PRN Q4HRS PRN 10/14/16 23:15 Albuterol/ Ipratropium (Duoneb) 3 ml RTQID 10/15/16 08:00 10/16/16 07:41 3 ML Atorvastatin Calcium (Lipitor) 40 mg QHS 10/15/16 21:00 10/15/16 20:55 40 MG Azithromycin (Zithromax) 500 mg 1X ONCE 10/14/16 14:45 10/14/16 14:46 DC 10/14/16 15:47 500 MG Budesonide (Pulmicort) 0.5 mg RTBID 10/15/16 08:00 10/16/16 07:41 0.5 MG Dextrose (Dextrose 50%-Water Syringe) 12.5 gm PRN Q15MIN PRN 10/14/16 23:15 Doxycycline Hyclate 100 mg 100 mg BID 10/15/16 09:00 10/16/16 09:13 100 MG Fentanyl Citrate (Fentanyl 2ml Vial) 25 mcg PRN Q2HR PRN 10/14/16 14:45 10/15/16 14:44 DC Guaifenesin (Robitussin Dm) 10 ml QID 10/15/16 21:00 10/16/16 09:13 10 ML Insulin Aspart (Novolog) 0-7 UNITS TIDWMEALS 10/15/16 08:00 Insulin Detemir (Levemir) 8 units QHS 10/14/16 23:30 10/15/16 21:01 8 UNITS Metoprolol Tartrate (Lopressor) 25 mg BID 10/15/16 09:00 10/16/16 09:13 25 MG Ondansetron HCl (Zofran) 4 mg PRN Q8HRS PRN 10/14/16 14:45 10/15/16 14:44 DC Pneumococcal Polyvalent Vaccine (Do NOT chart on this placeholder) 1 each 1X ONCE 10/14/16 19:45 10/14/16 19:46 UNV Pneumococcal Polyvalent Vaccine (Pneumovax 23) 0.5 ml ONCE ONCE 10/15/16 09:00 10/15/16 09:01 DC 10/15/16 09:31 0.5 ML Potassium Chloride (Klor-Con) 40 meq 1X ONCE 10/14/16 20:45 10/14/16 20:46 DC 10/14/16 21:17 40 MEQ Sodium Chloride (Iv Sodium Chloride 0.9% 1000ml Bag) 1,000 ml @ 75 mls/hr [id number] 10/15/16 10:30 10/15/16 21:14 DC 10/15/16 11:09 75 MLS/HR Lab Laboratory Tests Test 10/15/16 11:23 10/15/16 16:09 10/15/16 18:00 10/15/16 20:47 Glucose (Fingerstick) 172mg/dL (70-99) 173mg/dL (70-99) 217mg/dL (70-99) Urine Collection Type Unknown Urine Color Yellow Urine Clarity Clear Urine pH 6.0 Urine Specific [place] 1.010 Urine Protein 100mg/dL (NEG-TRACE) Urine Glucose (UA) Negativemg/dL (NEG) Urine Ketones (Stick) Negativemg/dL (NEG) Urine Blood Negative (NEG) Urine Nitrite Negative (NEG) Urine Bilirubin Negative (NEG) Urine Urobilinogen Dipstick 0.2mg/dL (0.2 mg/dL) Urine Leukocyte Esterase Negative (NEG) Urine RBC 0/HPF (0-2) Urine WBC Occ/HPF (0-4) Urine Squamous Epithelial Cells Few/LPF Urine Bacteria Few/HPF (0-FEW) Test 10/16/16 03:34 10/16/16 07:07 Sodium Level 130mmol/L (136-145) Potassium Level 3.7mmol/L (3.5-5.1) Chloride Level 94mmol/L (98-107) Carbon Dioxide Level 32mmol/L (21-32) Anion Gap 4 (6-14) Blood Urea Nitrogen 31mg/dL (7-20) Creatinine 1.4mg/dL (0.6-1.0) Estimated GFR (Cockcroft-Gault) 35.7 Glucose Level 148mg/dL (70-99) Calcium Level 8.9mg/dL (8.5-10.1) Phosphorus Level 2.7mg/dL (2.6-4.7) Magnesium Level 1.8mg/dL (1.8-2.4) Albumin 2.4g/dL (3.4-5.0) Glucose (Fingerstick) 119mg/dL (70-99) VALERIA WATKINS MD Oct 16, 2016 10:59
[2016-10-16 11:00] VITALS: BP 116/38
--- NOTE | 2016-10-16 11:30 | RAD ---
Chest, 2 views, 10/16/2016: History: Dyspnea, cough, CHF Comparison is made to a study from 10/14/2016. There has been a previous median sternotomy. The heart is within normal limits in size. There is considerable calcific plaquing and tortuosity of the thoracic aorta. The pulmonary vascularity is normal. Mild streaky basilar opacities have developed bilaterally. There is blunting of the left lateral costophrenic angle compatible with a small amount of pleural fluid. There are mild scattered spurs in the spine. IMPRESSION: 1. Mild streaky bibasilar atelectasis has developed. A component of pneumonia cannot be excluded. 2. Small left pleural effusion.
--- NOTE | 2016-10-16 11:44 | PDOC2 ---
TERESA JUNIOR CHEERLEADING COACH 10/16/16 1144: CARDIAC CONSULT DATE OF CONSULT Date of Consult DATE: 10/16/16 TIME: 11:30 REASON FOR CONSULT Reason for Consult: Vtach REFERRING PHYSICIAN Referring Physician: Jarrett SOURCE Source: Chart review, Patient HISTORY OF PRESENT ILLNESS HISTORY OF PRESENT ILLNESS This is a pleasant 86 yo female who recently had a mechanical fall and obtain facial laceration and was needing her suture removal. She came in with complains of producitve cough with yellow sputum with some SOA. Positive for fever and chills. She does have some dementia and in recent admission 1-2 wks ago she was noted with severe pulmonary HTN and was a DNR/DNI at that time and was arrange to proceed [facility] care service. She repeatedly told me at that time that she does not want any invasive procedures and be conservative with treatments. 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) Renal/: Chronic renal insuff Endocrine: Diabetes (2), Hypothyroidism PAST SURGICAL HISTORY Past Surgical History Appendectomy, CABG (x3 in 2000), Other (external iliac stents) FAMILY HISTORY Family History: Diabetes SOCIAL HISTORY Smoke: No (quit) ALCOHOL: none Drugs: None Lives: Alone CURRENT MEDICATIONS CURRENT MEDICATIONS Current Medications Medications (Trade) Dose Ordered Sig/[place] Route PRN Reason Start Time Stop Time Status Last Admin Dose Admin Atorvastatin Calcium (Lipitor) 40 mg QHS PO 10/15/16 21:00 10/15/16 20:55 Insulin Aspart (Novolog) 8 units [id number] SQ 10/15/16 17:00 10/15/16 16:51 Guaifenesin (Robitussin Dm) 10 ml QID PO 10/15/16 21:00 10/16/16 09:13 ALLERGIES ALLERGIES: Coded Allergies: No Known Drug Allergies (Unverified , 04/07/15) ROS Review of System 14 point ROS evaluated with pertinent positives noted per HPI PHYSICAL EXAM General: Alert, Oriented X3, Cooperative, No acute distress HEENT: Atraumatic, Mucous membr. moist/pink Lungs: Other (diffuse rhonchi) Heart: Regular rate (SR), Normal S1, Normal S2, Other (4/6 systolic murmur to LLS border) Abdomen: Soft, No tenderness Extremities: No cyanosis, Other (2+ bilateral LE pitting edema) Skin: No breakdown, No significant lesion Neuro: Normal speech, Sensation intact Psych/Mental Status: Mental status NL, Mood NL MUSCULOSKELETAL: Osteoarthritic changes both hands VITALS VITALS Vital Signs Date Time Temp Pulse Resp B/P Pulse Ox O2 Delivery O2 Flow Rate FiO2 10/16/16 11:15 Nasal Cannula 10/16/16 11:00 97.5 66 20 116/38 91 2.0 97.5 LABS Lab: Laboratory Tests Test 10/15/16 16:09 10/15/16 18:00 10/15/16 20:47 10/16/16 03:34 Glucose (Fingerstick) 173mg/dL (70-99) 217mg/dL (70-99) Urine Collection Type Unknown Urine Color Yellow Urine Clarity Clear Urine pH 6.0 Urine Specific [place] 1.010 Urine Protein 100mg/dL (NEG-TRACE) Urine Glucose (UA) Negativemg/dL (NEG) Urine Ketones (Stick) Negativemg/dL (NEG) Urine Blood Negative (NEG) Urine Nitrite Negative (NEG) Urine Bilirubin Negative (NEG) Urine Urobilinogen Dipstick 0.2mg/dL (0.2 mg/dL) Urine Leukocyte Esterase Negative (NEG) Urine RBC 0/HPF (0-2) Urine WBC Occ/HPF (0-4) Urine Squamous Epithelial Cells Few/LPF Urine Bacteria Few/HPF (0-FEW) Sodium Level 130mmol/L (136-145) Potassium Level 3.7mmol/L (3.5-5.1) Chloride Level 94mmol/L (98-107) Carbon Dioxide Level 32mmol/L (21-32) Anion Gap 4 (6-14) Blood Urea Nitrogen 31mg/dL (7-20) Creatinine 1.4mg/dL (0.6-1.0) Estimated GFR (Cockcroft-Gault) 35.7 Glucose Level 148mg/dL (70-99) Calcium Level 8.9mg/dL (8.5-10.1) Phosphorus Level 2.7mg/dL (2.6-4.7) Magnesium Level 1.8mg/dL (1.8-2.4) Albumin 2.4g/dL (3.4-5.0) Test 10/16/16 07:07 Glucose (Fingerstick) 119mg/dL (70-99) ECHOCARDIOGRAM ECHOCARDIOGRAM <Conclusion> The left ventricular systolic function is normal and the ejection fraction is within normal range. The Ejection Fraction is 60-65%. There is normal LV segmental wall motion, septal motion suggestive of conduction deficit. Doppler and Color Flow revealed moderate tricuspid regurgitation. There is severe pulmonary hypertension. The PA pressure was estimated at 92 mmHg. DATE: 10/07/16 1138 ASSESSMENT/PLAN ASSESSMENT/PLAN 1. Acute bronchitis with severe pulmonary HTN: PPH vs secondary. Seen by pulmonary previously. Per PCP 2. Chronic diastolic CHF: compensated. chronically elevated pro NT BNP due mainly to #1 3. Tachyarrhythmia: Notable for asymptomatic paroxysmal AFIB with aberrancy from past admission and remains same. EKG SR/LAFB/LBBB no acute changes. 4. Hx of falls. 5. Chronic Normocytic anemia: Hgb 7.7 deemed chronic loss by GI in the past. 6. Protein malnutrition/frailty 7. DM2/HLP: controlled 8. HTN: controlled. NO orthostasis. 9. CAD/PAD: stable 10. CKD 3/hyponatremia: nephrology on board Recommendations 1. Pt was a DNR/DNI from previous admission and also was arranged for hospice services 2. Pt does not want to pursue and invasive avenue and wants conservative measures. 3. Continue on current metoprolol dose. Maintain K and Mg. Low sodium maybe contributing to arrhythmia. Doubt she will be able to tolerate uptitrating BB. 4. ECASA 81 mg when ok with PCP 5. Will follow peripherally Problems: DAVEY DENISE MD 10/16/16 2778: CARDIAC CONSULT ALLERGIES ALLERGIES: Coded Allergies: No Known Drug Allergies (Unverified , 04/07/15) ASSESSMENT/PLAN ASSESSMENT/PLAN Reviewed telemetry. SVT with aberrancy. No further testing. Problems: TERESA JUNIOR APRN Oct 16, 2016 11:44 DAVEY DENISE MD Oct 16, 2016 22:57
[2016-10-16 15:00] VITALS: BP 113/17
[2016-10-16 19:00] VITALS: BP 159/45
[2016-10-16] MEDS: ATORVASTATIN CALCIUM 40 MG TABLET. PO SCH (20:57)
[2016-10-16 23:00] VITALS: BP 147/26
[2016-10-17] VITALS (8 sets, daily range): BP systolic 108–181; BP diastolic 38–56
[2016-10-17 05:17] LABS: BASO % 1 % (0-3); EOS % 1 % (0-3); HEMATOCRIT 23.2 % (36.0-47.0); HEMOGLOBIN 7.7 g/dL (12.0-15.5); LYMPH # 1.2 x10^3/uL (1.0-4.8); LYMPH % 24 % (24-48); MEAN CORPUSCULAR HEMOGLOBIN 30 pg (25-35); MEAN CORPUSCULAR HGB CONC 33 g/dL (31-37); MEAN CORPUSCULAR VOLUME 91 fL (79-100); MONO % 10 % (0-9); NEUT % 64 % (31-73); PLATELET COUNT 219 x10^3/uL (140-400); RED BLOOD COUNT 2.56 x10^6/uL (3.50-5.40); RED CELL DISTRIBUTION WIDTH 15.1 % (11.5-14.5); WHITE BLOOD COUNT 4.8 x10^3/uL (4.0-11.0)
[2016-10-17 06:10] LABS: ALBUMIN 2.4 g/dL (3.4-5.0); CREATININE 1.2 mg/dL (0.6-1.0); GFR 42.7; PHOSPHORUS 2.6 mg/dL (2.6-4.7); POTASSIUM 3.7 mmol/L (3.5-5.1)
[2016-10-17] MEDS: INSULIN ASPART 300 UNITS/3 ML INSULN.PEN SQ SCH ×4 (08:00→18:40)
[2016-10-17] MEDS ORDERED: diphenhydrAMINE HCL 25 MG CAPSULE PO PRN (08:30)
[2016-10-17] MEDS ORDERED: ACETAMINOPHEN 325 MG TABLET. PO PRN ×2 (08:30)
--- NOTE | 2016-10-17 08:31 | DISCH ---
DISCHARGE DISCHARGE DATE: Oct 17, 2016 FINAL DIAGNOSIS Problems Medical Problems: (1) Acute bronchitis Status: Acute (2) Anemia Status: Acute (3) Bronchitis Status: Acute (4) Chronic respiratory failure Status: Acute (5) Elevated brain natriuretic peptide (BNP) level Status: Acute (6) Hypochloremia Status: Acute (7) Hyponatremia Status: Acute CONDITION ON DISCHARGE: Stable HOSPICE: Yes HOSPICE EVAL & TREAT: Yes (has already been in contact with hospice at last d/c ) POST DISCHARGE ORDERS ACTIVITY ORDERS: Activity as tolerated WEIGHT BEARING STATUS: Full weight bearing DIET AFTER DISCHARGE: ADA (limit salt) WOUND/INCISION CARE: Keep wound/cast CDI, Change dressing, Reinforce dressing PRN FOLLOW-UP PHYSICIAN FOLLOW-UP: Dr Arellano in one week TREATMENT/EQUIPMENT ORDERS ADAPTIVE EQUIPMENT NEEDED: None RESPIRATORY EQUIPMENT NEEDED: Oxygen (has at home) CIERRA ARELLANO MD Oct 17, 2016 08:31
[2016-10-17] MEDS: IPRATRPIUM/ALBUTEROL 0.5/2.5MG 3 ML NEBU. NEB SCH ×3 (08:32→16:42)
[2016-10-17] MEDS: BUDESONIDE 0.5 MG/2 ML NEBU. NEB SCH (08:32)
[2016-10-17] MEDS ORDERED: GUAI5SYR PO (08:36)
[2016-10-17] MEDS ORDERED: DOXY100T PO (08:36)
[2016-10-17] MEDS ORDERED: PROAIR HFA8.5 GM INH (08:36)
--- NOTE | 2016-10-17 08:40 | PDOC ---
OBJECTIVE Vital Signs Vital Signs Date Time Temp Pulse Resp B/P Pulse Ox O2 Delivery O2 Flow Rate FiO2 10/17/16 08:37 97 Nasal Cannula 1.0 10/17/16 08:34 97 Nasal Cannula 1.0 10/17/16 07:00 98.4 72 20 181/47 91 Nasal Cannula 1.0 98.4 10/17/16 03:00 98.3 70 18 151/38 90 Nasal Cannula 2.0 98.3 10/16/16 23:00 98.5 69 20 147/26 95 Nasal Cannula 2.0 98.5 10/16/16 20:58 79 159/45 10/16/16 20:10 Nasal Cannula 1.0 10/16/16 19:37 95 Nasal Cannula 1.0 10/16/16 19:36 95 Nasal Cannula 1.0 10/16/16 19:00 98.6 79 20 159/45 95 Nasal Cannula 2.0 98.6 10/16/16 15:35 95 Nasal Cannula 10/16/16 15:00 97.7 71 20 113/17 100 Nasal Cannula 2.0 97.7 10/16/16 11:15 Nasal Cannula 10/16/16 11:00 97.5 66 20 116/38 91 Nasal Cannula 2.0 97.5 10/16/16 09:13 134/56 I & O Intake and Output 10/17/16 07:00 Intake Total 50 ml Balance 50 ml Intake Oral 50 ml # Voids 6 # Bowel Movements 4 ASSESSMENT/PLAN Assessment/Plan 1. Hyponatremia: Stable today fluids. Likely due to vasomotor etiology and volume depletion. Continue per nephrology. 2. Bronchitis: Doing better with scheduled nebulizer treatments and beginning doxycycline. We'll add Robitussin-DM to help with the cough. We'll change to her metered-dose inhalers that she has at home on discharge 3: Severe pulm HTN: Stable and contributing to the above problems. She will be going home with hospice. 4. Anemia: Still low. Discussed the pros and cons of transfusion. We'll transfuse 1 unit of packed red blood cells prior to discharge. She can discharge later today after she completes her unit of packed red blood cells. 5. CKD 3: Continue as above. 6. Episodes of asymptomatic V. tach: Check magnesium level. Cardiology was consulted last night. Adjustments in medications as needed. Patient is not interested in any invasive procedures. 7. Disposition: She wants to go home today. She's feeling better. We'll transfuse her and then discharge after the transfusion. She is going home with hospice. She's already been in contact with hospice after her last hospitalization. Problems: COMMENT Lab Laboratory Tests Test 10/16/16 11:12 10/16/16 16:12 10/16/16 20:40 10/17/16 04:30 Glucose (Fingerstick) 188mg/dL (70-99) 178mg/dL (70-99) 128mg/dL (70-99) White Blood Count 4.8x10^3/uL (4.0-11.0) Red Blood Count 2.56x10^6/uL (3.50-5.40) Hemoglobin 7.7g/dL (12.0-15.5) Hematocrit 23.2% (36.0-47.0) Mean Corpuscular Volume 91fL (79-100) Mean Corpuscular Hemoglobin 30pg (25-35) Mean Corpuscular Hemoglobin Concent 33g/dL (31-37) Red Cell Distribution Width 15.1% (11.5-14.5) Platelet Count 219x10^3/uL (140-400) Neutrophils (%) (Auto) 64% (31-73) Lymphocytes (%) (Auto) 24% (24-48) Monocytes (%) (Auto) 10% (0-9) Eosinophils (%) (Auto) 1% (0-3) Basophils (%) (Auto) 1% (0-3) Neutrophils # (Auto) 3.1x10^3uL (1.8-7.7) Lymphocytes # (Auto) 1.2x10^3/uL (1.0-4.8) Monocytes # (Auto) 0.5x10^3/uL (0.0-1.1) Eosinophils # (Auto) 0.0x10^3/uL (0.0-0.7) Basophils # (Auto) 0.0x10^3/uL (0.0-0.2) Sodium Level 130mmol/L (136-145) Potassium Level 3.7mmol/L (3.5-5.1) Chloride Level 94mmol/L (98-107) Carbon Dioxide Level 31mmol/L (21-32) Anion Gap 5 (6-14) Blood Urea Nitrogen 22mg/dL (7-20) Creatinine 1.2mg/dL (0.6-1.0) Estimated GFR (Cockcroft-Gault) 42.7 Glucose Level 108mg/dL (70-99) Calcium Level 9.0mg/dL (8.5-10.1) Phosphorus Level 2.6mg/dL (2.6-4.7) Magnesium Level 1.8mg/dL (1.8-2.4) Albumin 2.4g/dL (3.4-5.0) CIERRA ARELLANO MD Oct 17, 2016 08:40
[2016-10-17] MEDS: guaiFENesin DM 200MG/20MG 10 ML SYRUP PO SCH ×3 (10:31→18:38)
[2016-10-17] MEDS: DOXYCYCLINE HYCLATE 100 MG TABLET PO SCH (10:31)
[2016-10-17] MEDS: METOPROLOL TART IMMED RELEASE 50 MG TABLET. PO SCH (10:32)
[2016-10-17] MEDS: INSULIN DETEMIR 300 UNITS/3 ML INSULN.PEN. SQ SCH (10:38)
== END 2016-10-17 19:18 | disposition hospice, home (50) | DRG 640 ==
LOC: ER 11:34 → ED HOLD 14:19 → 4 NORTH 18:02
PROVIDERS: ADMIT Family Medicine; ATTEND Family Medicine
DX: E87.1 Hypo-osmolality and hyponatremia (principal); E43 Unspecified severe protein-calorie malnutrition; I47.2 Ventricular tachycardia; I13.0 Hypertensive heart and chronic kidney disease with heart failure and stage 1 through stage 4 chronic kidney disease, or unspecified chronic kidney disease; I47.1 Supraventricular tachycardia; I50.32 Chronic diastolic (congestive) heart failure; J96.10 Chronic respiratory failure, unspecified whether with hypoxia or hypercapnia; E11.319 Type 2 diabetes mellitus with unspecified diabetic retinopathy without macular edema; E11.22 Type 2 diabetes mellitus with diabetic chronic kidney disease; E03.9 Hypothyroidism, unspecified; D64.9 Anemia, unspecified; E78.5 Hyperlipidemia, unspecified; E86.9 Volume depletion, unspecified; F03.90 Unspecified dementia, unspecified severity, without behavioral disturbance, psychotic disturbance, mood disturbance, and anxiety; I07.1 Rheumatic tricuspid insufficiency; I25.10 Atherosclerotic heart disease of native coronary artery without angina pectoris; I44.7 Left bundle-branch block, unspecified; I27.2 Other secondary pulmonary hypertension; I48.0 Paroxysmal atrial fibrillation; J30.9 Allergic rhinitis, unspecified; M19.90 Unspecified osteoarthritis, unspecified site; E87.8 Other disorders of electrolyte and fluid balance, not elsewhere classified; J20.9 Acute bronchitis, unspecified; N18.3 Chronic kidney disease, stage 3 (moderate); T50.2X5A Adverse effect of carbonic-anhydrase inhibitors, benzothiadiazides and other diuretics, initial encounter; Z51.5 Encounter for palliative care; Z66 Do not resuscitate; Z83.3 Family history of diabetes mellitus; Z87.891 Personal history of nicotine dependence; Z91.81 History of falling; Z95.1 Presence of aortocoronary bypass graft; Z99.81 Dependence on supplemental oxygen
CPT/HCPCS: 36415; 71010; 71020; 80048; 80051; 80069; 81001; 82533; 82947; 83735; 83880; 83930; 83935; 84300; 84484; 84550; 85027; 86078; 86850; 86900; 86901; 86920; 87040; 90732; 93005; 94250; 94640; 94760; 96360; 96361; J1815; J7030; J7620; P9016; Q0144; 99285-25

== ENCOUNTER 2017-01-15 12:50 | Inpatient (IN) | payer MEDICARE, OTHER ==
[~2017-01-15] VITALS: Ht 149.9 cm; Wt 82.6 kg
[~2017-01-15 12:50] MED LIST changes: +ASPI-630 PO; -ASPI81TA2 PO; +DOXY100T PO; +GUAI5SYR PO; +PROAIR HFA8.5 GM INH
--- NOTE | 2017-01-15 14:07 | EKG ---
[facility] [address] [place] [address] Test Date: 2017-01-15 Test Time: 13:04:32 Pat Name: [place] Department: Room: Gender: F [place]: : 1930 Requested By: DELANEY DAVIS Order Number: [id number] Reading MD: Erwin Simmons Measurements Intervals [place] Rate: 63 P: 0 NH: 164 QRS: -18 QRSD: 114 T: 62 QT: 450 QTc: 464 Interpretive Statements SINUS RHYTHM NON-SPECIFIC ST/T CHANGES Electronically Signed On 01-15-2017 14:34:22 CDT by Erwin Simmons
--- NOTE | 2017-01-15 14:14 | RAD ---
Portable chest, 01/15/2017: History: Shortness of breath, previous CABG Comparison is made to a study from 10/16/2016. Sternal wires are in place. The heart size is normal. There is moderate calcific plaquing of the thoracic aorta. There are right basilar, right hilar and mediastinal calcifications compatible with old granulomatous disease. There is slight blunting of lateral costophrenic angles. This has improved on the left since the previous study. The current findings may be due to scarring or a small amount of pleural fluid. There are minimal parenchymal scars. No acute infiltrate is seen. The bony structures are demineralized. IMPRESSION: 1. Slight blunting of the costophrenic angles bilaterally compatible with a tiny amount of pleural fluid versus scarring. 2. No acute infiltrates.
[2017-01-15 14:17] LABS: BASO % 1 % (0-3); EOS % 2 % (0-3); HEMATOCRIT 34.3 % (36.0-47.0); HEMOGLOBIN 11.1 g/dL (12.0-15.5); LYMPH # 0.9 x10^3/uL (1.0-4.8); LYMPH % 15 % (24-48); MEAN CORPUSCULAR HEMOGLOBIN 30 pg (25-35); MEAN CORPUSCULAR HGB CONC 33 g/dL (31-37); MEAN CORPUSCULAR VOLUME 91 fL (79-100); MONO % 6 % (0-9); NEUT % 76 % (31-73); PLATELET COUNT 178 x10^3/uL (140-400); RED BLOOD COUNT 3.76 x10^6/uL (3.50-5.40); RED CELL DISTRIBUTION WIDTH 14.4 % (11.5-14.5); WHITE BLOOD COUNT 6.2 x10^3/uL (4.0-11.0)
[2017-01-15 14:25] LABS: CALCIUM 9.5 mg/dL (8.5-10.1); CREATININE 1.4 mg/dL (0.6-1.0); GFR 35.7; POTASSIUM 4.1 mmol/L (3.5-5.1)
[2017-01-15 14:31] LABS: ALBUMIN 2.4 g/dL (3.4-5.0); ALBUMIN/GLOBULIN RATIO 0.5 (1.0-1.7); TOTAL BILIRUBIN 0.4 mg/dL (0.2-1.0); TOTAL PROTEIN 6.8 g/dL (6.4-8.2)
[2017-01-15 14:40] LABS: CKMB MASS 2.2 ng/mL (0.0-3.6); CREATINE KINASE < 7 U/L (26-192)
[2017-01-15 14:59] LABS: BILIRUBIN,URINE NEGATIVE (NEG); GLUCOSE,URINE 100 mg/dL (NEG); NITRITE,URINE NEGATIVE (NEG); PROTEIN,URINE >=300 mg/dL (NEG-TRACE); UROBILINOGEN,URINE 0.2 mg/dL (0.2 mg/dL)
[2017-01-15 15:04] LABS: BACTERIA,URINE FEW /HPF (0-FEW); SQUAMOUS EPITHELIAL CELL,UR FEW /LPF
[2017-01-15] MEDS ORDERED: hydrALAZINE 20 MG/ML VIAL. IVP ONE (15:30)
--- NOTE | 2017-01-15 16:59 | PHYS DOC ---
Past Medical History Past Medical History: CAD, CHF, Diabetes-Type II, Hypertension, Hypothyroid Past Surgical History: Angioplasty, Appendectomy, Coronary Bypass Surgery, Other Additional Past Surgical Histo: STENT PLACEMENT Alcohol Use: None Drug Use: None Adult General Chief Complaint Chief Complaint: SHORTNESS OF BREATH HPI HPI Patient is a 86 year old female who presents with complaint of worsening shortness of breath and lower extremity edema. Patient states her symptoms have been worsening over the past 2 weeks. Patient states that she has been having worsening difficulty with shortness of breath with normal ambulation. Patient denies any cough or fever associated with her symptoms. Patient states that she ran out of Lasix 5 days ago. Patient follows a Dr. Arellano for primary care. Patient is a poor historian but states that she has had history of open-heart surgery and also patient thinks that she has congestive heart failure. Patient however does not follow with a manager company to her knowledge. Patient denies any associated chest pain with her symptoms. Patient states that she is only able to walk across the room before having to stop because she gets very short of breath. Patient denies any nausea, vomiting, or abdominal pain. Review of Systems Review of Systems Constitutional: Denies fever or chills [] Eyes: Denies change in visual acuity, redness, or eye pain [] HENT: Denies nasal congestion or sore throat [] Respiratory: Shortness of breath [] Cardiovascular: Edema, dyspnea on exertion, denies chest pain [] GI: Denies abdominal pain, nausea, vomiting, bloody stools or diarrhea [] : Denies dysuria or hematuria [] Musculoskeletal: Denies back pain or joint pain [] Integument: Denies rash or skin lesions [] Neurologic: Denies headache, focal weakness or sensory changes [] Allergies Allergies Allergies Coded Allergies Type Severity Reaction Last Updated Verified No Known Drug Allergies 01/15/17 No Physical Exam Physical Exam Constitutional: Alert, afebrile, appears in chronically poor health. [] HENT: Normocephalic, atraumatic, bilateral external ears normal, oropharynx moist, no oral exudates, nose normal. [] Eyes: PERRLA, EOMI, conjunctiva normal, no discharge. [] Neck: Normal range of motion, no tenderness, supple, no stridor. [] Cardiovascular:Heart rate regular rhythm, no murmur [] Lungs & Thorax: Bilateral breath sounds clear to auscultation [] Abdomen: Bowel sounds normal, soft, no tenderness, no masses, no pulsatile masses. [] Skin: Warm, dry, no erythema, no rash. [] Back: No tenderness, no CVA tenderness. [] Extremities: No tenderness, no cyanosis, no clubbing, ROM intact, 2+ pitting edema in the bilateral lower extremities. [] Neurologic: Alert and oriented X 3, normal motor function, normal sensory function, no focal deficits noted. [] Current Patient Data Vital Signs Vital Signs Date Time Temp Pulse Resp B/P (MAP) Pulse Ox O2 Delivery O2 Flow Rate FiO2 01/15/17 13:05 98.3 65 30 164/75 (104) 95 Room Air 98.3 Lab Values Laboratory Tests Test 01/15/17 13:45 01/15/17 14:50 White Blood Count 6.2 x10^3/uL (4.0-11.0) Red Blood Count 3.76 x10^6/uL (3.50-5.40) Hemoglobin 11.1 g/dL (12.0-15.5) L Hematocrit 34.3 % (36.0-47.0) L Mean Corpuscular Volume 91 fL (79-100) Mean Corpuscular Hemoglobin 30 pg (25-35) Mean Corpuscular Hemoglobin Concent 33 g/dL (31-37) Red Cell Distribution Width 14.4 % (11.5-14.5) Platelet Count 178 x10^3/uL (140-400) Neutrophils (%) (Auto) 76 % (31-73) H Lymphocytes (%) (Auto) 15 % (24-48) L Monocytes (%) (Auto) 6 % (0-9) Eosinophils (%) (Auto) 2 % (0-3) Basophils (%) (Auto) 1 % (0-3) Neutrophils # (Auto) 4.7 x10^3uL (1.8-7.7) Lymphocytes # (Auto) 0.9 x10^3/uL (1.0-4.8) L Monocytes # (Auto) 0.4 x10^3/uL (0.0-1.1) Eosinophils # (Auto) 0.1 x10^3/uL (0.0-0.7) Basophils # (Auto) 0.0 x10^3/uL (0.0-0.2) Sodium Level 138 mmol/L (136-145) Potassium Level 4.1 mmol/L (3.5-5.1) Chloride Level 102 mmol/L (98-107) Carbon Dioxide Level 27 mmol/L (21-32) Anion Gap 9 (6-14) Blood Urea Nitrogen 14 mg/dL (7-20) Creatinine 1.4 mg/dL (0.6-1.0) H Estimated GFR (Cockcroft-Gault) 35.7 BUN/Creatinine Ratio 10 (6-20) Glucose Level 176 mg/dL (70-99) H Calcium Level 9.5 mg/dL (8.5-10.1) Total Bilirubin 0.4 mg/dL (0.2-1.0) Aspartate Amino Transferase (AST) 30 U/L (15-37) Alanine Aminotransferase (ALT) 16 U/L (14-59) Alkaline Phosphatase 75 U/L (46-116) Creatine Kinase < 7 U/L (26-192) L Creatine Kinase MB (Mass) 2.2 ng/mL (0.0-3.6) Creatine Kinase MB Relative Index % (0-4) Troponin I Quantitative 0.019 ng/mL (0.000-0.055) YI-Las-A-Type Natriuretic Peptide < 5 pg/mL (0-449) Total Protein 6.8 g/dL (6.4-8.2) Albumin 2.4 g/dL (3.4-5.0) L Albumin/Globulin Ratio 0.5 (1.0-1.7) L Urine Collection Type Unknown Urine Color Yellow Urine Clarity Clear Urine pH 7.0 Urine Specific [place] 1.020 Urine Protein >=300 mg/dL (NEG-TRACE) Urine Glucose (UA) 100 mg/dL (NEG) Urine Ketones (Stick) Negative mg/dL (NEG) Urine Blood Small (NEG) Urine Nitrite Negative (NEG) Urine Bilirubin Negative (NEG) Urine Urobilinogen Dipstick 0.2 mg/dL (0.2 mg/dL) Urine Leukocyte Esterase Negative (NEG) Urine RBC 6-10 /HPF (0-2) Urine WBC 1-4 /HPF (0-4) Urine Squamous Epithelial Cells Few /LPF Urine Bacteria Few /HPF (0-FEW) Urine Mucus Mod /LPF Laboratory Tests 01/15/17 13:45 Laboratory Tests 01/15/17 13:45 EKG EKG Interpreted by me: Heart rate 63, sinus rhythm, leftward axis, no acute ST/T- wave abnormalities present [] Radiology/Procedures Radiology/Procedures [facility] [address] [place] [address] IMAGING REPORT Signed PATIENT: [place] ACCOUNT: [id number] : 1930 LOCATION: ER AGE: 86 SEX: F EXAM STATUS: REG ER ORD. PHYSICIAN: DELANEY DAVIS MD REASON: shortness of breath PROCEDURE: PORTABLE CHEST 1V Portable chest, 01/15/2017: History: Shortness of breath, previous CABG Comparison is made to a study from 10/16/2016. Sternal wires are in place. The heart size is normal. There is moderate calcific plaquing of the thoracic aorta. There are right basilar, right hilar and mediastinal calcifications compatible with old granulomatous disease. There is slight blunting of lateral costophrenic angles. This has improved on the left since the previous study. The current findings may be due to scarring or a small amount of pleural fluid. There are minimal parenchymal scars. No acute infiltrate is seen. The bony structures are demineralized. IMPRESSION: 1. Slight blunting of the costophrenic angles bilaterally compatible with a tiny amount of pleural fluid versus scarring. 2. No acute infiltrates. DICTATED and SIGNED BY: RENITA BOWIE MD DATE: 01/15/17 1408 CC: DELANEY DAVIS MD; CIERRA ARELLANO MD ~ [] Course & Med Decision Making Course & Med Decision Making Pertinent Labs and Imaging studies reviewed. (See chart for details) Patient shows no evidence of edema on her chest x-ray and patient's BNP level was normal. The patient was found have critically elevated blood pressure which may be contributing the patient's current symptomatology. The patient started on IV hydralazine in the emergency department. Due to worsening symptoms, the patient will be admitted to the hospital for treatment of malignant hypertension. I spoke with Dr. Drake who accepted care patient in hospital. Dragon Disclaimer Dragon Disclaimer This electronic medical record was generated, in whole or in part, using a voice recognition dictation system. Departure Departure Impression: Primary Impression: Malignant hypertension Additional Impressions: Dyspnea Severe protein-calorie malnutrition Disposition: ADMITTED INPATIENT Admitting Physician: Rosy Drake Condition: GUARDED Referrals: CIERRA ARELLANO MD (PCP) Problem Qualifiers Additional Impressions: Dyspnea Dyspnea type: dyspnea on exertion Qualified Codes: R06.09 - Other forms of dyspnea DELANEY DAVIS MD Jan 15, 2017 16:59
[2017-01-15] MEDS ORDERED: ALBUTEROL SULFATE 2.5 MG/3 ML NEBU. NEB PRN (17:00)
[2017-01-15] MEDS ORDERED: DEXTROSE 50% 25 GM / 50ML DISP.SYRIN. IV PRN (17:00)
[2017-01-15] MEDS: guaiFENesin DM 200MG/20MG 10 ML SYRUP PO SCH ×2 (17:00→20:52)
--- NOTE | 2017-01-15 17:59 | PDOC1 ---
History and Physical Date of Admission Date of Admission DATE: 01/15/17 TIME: 17:43 Identification/Chief Complaint Chief Complaint exercise intol, dyspnea on exertion Problems: Source Source: Chart review, Patient History of Present Illness History of Present Illness Ms. Piper presents to the ER w./ complaint of worsening dyspnea on exertion. She follows Dr. Yumiko Tavera, but has no medicine man She had noticed that she is less active and gets short of breath much too easy. She lives in a house w/. a family member, but still drives and is very active and independent in the ER, she complains of being too cold, the room is a little cold, no chest pain, she was eating when I interviewd Past Medical History Cardiovascular: CAD, CHF, HTN, Hyperlipidemia, Other Pulmonary: No pertinent hx CENTRAL NERVOUS SYSTEM: Other Heme/Onc: Anemia NOS Hepatobiliary: No pertinent hx Psych: No pertinent hx Musculoskeletal: Osteoarthritis Rheumatologic: No pertinent hx Infectious disease: No pertinent hx Renal/: Chronic renal insuff Endocrine: Diabetes, Hypothyroidism Past Surgical History Past Surgical History: Appendectomy, CABG, Other Family History Family History: Diabetes Social History Smoke: No ALCOHOL: none Drugs: None Current Medications Current Medications Current Medications Hydralazine HCl (Apresoline) 10 mg 1X ONCE IVP Last administered on 01/15/17t 16:45; Start 01/15/17 at 15:30; Stop 01/15/17 at 15:31; Status DC Atorvastatin Calcium (Lipitor) 40 mg QHS PO ; Start 01/15/17 at 21:00 Guaifenesin (Robitussin Dm) 10 ml QID PO ; Start 01/15/17 at 17:00 Metoprolol Tartrate (Lopressor) 25 mg BID PO ; Start 01/15/17 at 21:00 Albuterol Sulfate (Ventolin Neb Soln) 2.5 mg PRN Q4HRS PRN NEB SHORTNESS OF BREATH; Start 01/15/17 at 17:00 Vitamin D (Vitamin D3) 2,000 unit DAILY PO ; Start 01/16/17 at 09:00 Insulin Detemir (Levemir) 8 units QHS SQ ; Start 01/15/17 at 21:00 Insulin Aspart (NovoLOG) 5 units TIDAC SQ ; Start 01/16/17 at 07:30 Insulin Aspart (NovoLOG) 0-5 UNITS TIDWMEALS SQ ; Start 01/15/17 at 17:00 Dextrose (Dextrose 50%-Water Syringe) 12.5 gm PRN Q15MIN PRN IV SEE COMMENTS; Start 01/15/17 at 17:00 Amlodipine Besylate (Norvasc) 2.5 mg DAILY PO ; Start 01/15/17 at 17:00 Active Scripts Active Proair Hfa Inhaler (Albuterol Sulfate) 8.5 Gm Hfa.aer.ad 2 Puff INH PRN Q4-6HRS PRN Doxycycline Hyclate 100 Mg Tablet 100 Mg PO BID Guaifenesin Dm Syrup (Guaifenesin/Dextromethorphan) 5 Ml Syrup 10 Ml PO QID Metoprolol Tartrate 50 Mg Tablet 25 Mg PO BID Reported Atorvastatin Calcium 40 Mg Tablet 1 Tab PO QHS Humulin N (Nph, Human Insulin Isophane) 100 Unit/1 Ml Vial 8 Unit SQ QHS Humulin N (Nph, Human Insulin Isophane) 100 Unit/1 Ml Vial 6 Unit SQ DAILYAC Humulin R (Insulin Regular, Human) 100 Unit/1 Ml Vial 8 Unit IJ DAILYBFRSUP Vitamin D (Cholecalciferol (Vitamin D3)) 1,000 Unit Capsule 2 Cap PO DAILY Fish Oil 1,200 Mg Softgel (Wallagrass-3S/Dha/Epa/Fish Oil) 1 Each Capsule Allergies Allergies: Coded Allergies: No Known Drug Allergies (Unverified , 01/15/17) ROS General: No: Chills, Night Sweats, Fatigue, Malaise, Appetite, Other PSYCHOLOGICAL ROS: No: Anxiety, Behavioral Disorder, Concentration difficultie , Decreased libido, Depression, Disorientation, Hallucinations, Hostility, Irritablity, Memory difficulties, Mood Swings, Obsessive thoughts, Physical abuse, Sexual abuse, Sleep disturbances, Suicidal ideation, Other Eyes: No Blurry vision, No Decreased vision, No Double vision, No Dry eyes, No Excessive tearing, No Eye Pain, No Itchy Eyes, No Loss of vision, No Photophobia , No Scotomata, No Uses contacts, No Uses glasses, No Other HEENT: No: Heacaches, Visual Changes, Hearing change, Nasal congestion, Nasal discharge, Oral lesions, Sinus pain, Sore Throat, Epistaxis, Sneezing, Snoring, Tinnitus, Vertigo, Vocal changes, Other Respiratory: YES: SOB with excertion, No: Cough, Hemoptysis, Orthopnea, Pleuritic Pain, Shortness of breath, Sputum Changes, Stridor, Tachypnea, Wheezing, Other Cardiovascular: yes Edema, No Chest Pain, No Palpitations, No Orthopnea, No Paroxysmal Noc. Dyspnea, No Lt Headedness, No Other Gastrointestinal: No Nausea, No Vomiting, No Abdominal Pain, No Diarrhea, No Constipation, No Melena, No Hematochezia, No Other Genitourinary: No Dysuria, No Frequency, No Incontinence, No Hematuria, No Retention, No Discharge, No Urgency, No Pain, No Flank Pain, No Other, No , No , No , No , No , No , No Musculoskeletal: Yes Joint Pain, Yes Joint Stiffness Neurological: No Behavorial Changes, No Bowel/Bladder ControlChng, No Confusion , No Dizziness, No Gait Disturbance, No Headaches, No Impaired Coord/balance, No Memory Loss, No Numbness/Tingling, No Seizures, No Speech Problems, No Tremors, No Visual Changes, No Weakness, No Other Skin: No Dry Skin, No Eczema, No Hair Changes, No Lumps, No Mole Changes, No Mottling, No Nail Changes, No Pruritus, No Rash, No Skin Lesion Changes, No Other, No Acne Physical Exam General: Alert, Oriented X3, Cooperative HEENT: Atraumatic, PERRLA Lungs: Clear to auscultation Heart: S1S2, no murmurs Abdomen: Normal bowel sounds, Soft Rectal Exam: not examined Extremities: No clubbing, Normal pulses, Other (erythema to legs, 2+ edema bilat, ) Skin: No breakdown Neuro: Normal speech, Sensation intact Psych/Mental Status: Mental status NL, Mood NL Vitals Vitals Vital Signs Date Time Temp Pulse Resp B/P (MAP) Pulse Ox O2 Delivery O2 Flow Rate FiO2 01/15/17 16:45 66 215/120 01/15/17 13:05 98.3 30 95 Room Air 98.3 Labs Labs Laboratory Tests Test 01/15/17 13:45 01/15/17 14:50 01/15/17 17:04 White Blood Count 6.2 x10^3/uL (4.0-11.0) Red Blood Count 3.76 x10^6/uL (3.50-5.40) Hemoglobin 11.1 g/dL (12.0-15.5) Hematocrit 34.3 % (36.0-47.0) Mean Corpuscular Volume 91 fL (79-100) Mean Corpuscular Hemoglobin 30 pg (25-35) Mean Corpuscular Hemoglobin Concent 33 g/dL (31-37) Red Cell Distribution Width 14.4 % (11.5-14.5) Platelet Count 178 x10^3/uL (140-400) Neutrophils (%) (Auto) 76 % (31-73) Lymphocytes (%) (Auto) 15 % (24-48) Monocytes (%) (Auto) 6 % (0-9) Eosinophils (%) (Auto) 2 % (0-3) Basophils (%) (Auto) 1 % (0-3) Neutrophils # (Auto) 4.7 x10^3uL (1.8-7.7) Lymphocytes # (Auto) 0.9 x10^3/uL (1.0-4.8) Monocytes # (Auto) 0.4 x10^3/uL (0.0-1.1) Eosinophils # (Auto) 0.1 x10^3/uL (0.0-0.7) Basophils # (Auto) 0.0 x10^3/uL (0.0-0.2) Sodium Level 138 mmol/L (136-145) Potassium Level 4.1 mmol/L (3.5-5.1) Chloride Level 102 mmol/L (98-107) Carbon Dioxide Level 27 mmol/L (21-32) Anion Gap 9 (6-14) Blood Urea Nitrogen 14 mg/dL (7-20) Creatinine 1.4 mg/dL (0.6-1.0) Estimated GFR (Cockcroft-Gault) 35.7 BUN/Creatinine Ratio 10 (6-20) Glucose Level 176 mg/dL (70-99) Calcium Level 9.5 mg/dL (8.5-10.1) Total Bilirubin 0.4 mg/dL (0.2-1.0) Aspartate Amino Transf (AST/SGOT) 30 U/L (15-37) Alanine Aminotransferase (ALT/SGPT) 16 U/L (14-59) Alkaline Phosphatase 75 U/L (46-116) Creatine Kinase < 7 U/L (26-192) Creatine Kinase MB (Mass) 2.2 ng/mL (0.0-3.6) Creatine Kinase MB Relative Index % (0-4) Troponin I Quantitative 0.019 ng/mL (0.000-0.055) CU-Elp-O-Type Natriuretic Peptide < 5 pg/mL (0-449) Total Protein 6.8 g/dL (6.4-8.2) Albumin 2.4 g/dL (3.4-5.0) Albumin/Globulin Ratio 0.5 (1.0-1.7) Urine Collection Type Unknown Urine Color Yellow Urine Clarity Clear Urine pH 7.0 Urine Specific [place] 1.020 Urine Protein >=300 mg/dL (NEG-TRACE) Urine Glucose (UA) 100 mg/dL (NEG) Urine Ketones (Stick) Negative mg/dL (NEG) Urine Blood Small (NEG) Urine Nitrite Negative (NEG) Urine Bilirubin Negative (NEG) Urine Urobilinogen Dipstick 0.2 mg/dL (0.2 mg/dL) Urine Leukocyte Esterase Negative (NEG) Urine RBC 6-10 /HPF (0-2) Urine WBC 1-4 /HPF (0-4) Urine Squamous Epithelial Cells Few /LPF Urine Bacteria Few /HPF (0-FEW) Urine Mucus Mod /LPF Glucose (Fingerstick) 192 mg/dL (70-99) Laboratory Tests Test 01/15/17 13:45 01/15/17 14:50 01/15/17 17:04 White Blood Count 6.2 x10^3/uL (4.0-11.0) Red Blood Count 3.76 x10^6/uL (3.50-5.40) Hemoglobin 11.1 g/dL (12.0-15.5) Hematocrit 34.3 % (36.0-47.0) Mean Corpuscular Volume 91 fL (79-100) Mean Corpuscular Hemoglobin 30 pg (25-35) Mean Corpuscular Hemoglobin Concent 33 g/dL (31-37) Red Cell Distribution Width 14.4 % (11.5-14.5) Platelet Count 178 x10^3/uL (140-400) Neutrophils (%) (Auto) 76 % (31-73) Lymphocytes (%) (Auto) 15 % (24-48) Monocytes (%) (Auto) 6 % (0-9) Eosinophils (%) (Auto) 2 % (0-3) Basophils (%) (Auto) 1 % (0-3) Neutrophils # (Auto) 4.7 x10^3uL (1.8-7.7) Lymphocytes # (Auto) 0.9 x10^3/uL (1.0-4.8) Monocytes # (Auto) 0.4 x10^3/uL (0.0-1.1) Eosinophils # (Auto) 0.1 x10^3/uL (0.0-0.7) Basophils # (Auto) 0.0 x10^3/uL (0.0-0.2) Sodium Level 138 mmol/L (136-145) Potassium Level 4.1 mmol/L (3.5-5.1) Chloride Level 102 mmol/L (98-107) Carbon Dioxide Level 27 mmol/L (21-32) Anion Gap 9 (6-14) Blood Urea Nitrogen 14 mg/dL (7-20) Creatinine 1.4 mg/dL (0.6-1.0) Estimated GFR (Cockcroft-Gault) 35.7 BUN/Creatinine Ratio 10 (6-20) Glucose Level 176 mg/dL (70-99) Calcium Level 9.5 mg/dL (8.5-10.1) Total Bilirubin 0.4 mg/dL (0.2-1.0) Aspartate Amino Transf (AST/SGOT) 30 U/L (15-37) Alanine Aminotransferase (ALT/SGPT) 16 U/L (14-59) Alkaline Phosphatase 75 U/L (46-116) Creatine Kinase < 7 U/L (26-192) Creatine Kinase MB (Mass) 2.2 ng/mL (0.0-3.6) Creatine Kinase MB Relative Index % (0-4) Troponin I Quantitative 0.019 ng/mL (0.000-0.055) TD-Zxt-F-Type Natriuretic Peptide < 5 pg/mL (0-449) Total Protein 6.8 g/dL (6.4-8.2) Albumin 2.4 g/dL (3.4-5.0) Albumin/Globulin Ratio 0.5 (1.0-1.7) Urine Collection Type Unknown Urine Color Yellow Urine Clarity Clear Urine pH 7.0 Urine Specific [place] 1.020 Urine Protein >=300 mg/dL (NEG-TRACE) Urine Glucose (UA) 100 mg/dL (NEG) Urine Ketones (Stick) Negative mg/dL (NEG) Urine Blood Small (NEG) Urine Nitrite Negative (NEG) Urine Bilirubin Negative (NEG) Urine Urobilinogen Dipstick 0.2 mg/dL (0.2 mg/dL) Urine Leukocyte Esterase Negative (NEG) Urine RBC 6-10 /HPF (0-2) Urine WBC 1-4 /HPF (0-4) Urine Squamous Epithelial Cells Few /LPF Urine Bacteria Few /HPF (0-FEW) Urine Mucus Mod /LPF Glucose (Fingerstick) 192 mg/dL (70-99) VTE Prophylaxis Ordered VTE Prophylaxis Devices: Yes VTE Pharmacological Prophylaxi: No Assessment/Plan Assessment/Plan Accelerated HTn, dyspnea on exertion acute diastolic CHF likely, will get echo, consult CV check TSH CAD, s/p CABG right eye sclera is injected, consult Optho LITZY CORADO MD Jan 15, 2017 17:59
[2017-01-15] MEDS: amLODIPine BESYLATE 2.5 MG TABLET PO SCH (18:13)
[2017-01-15] MEDS: INSULIN ASPART 300 UNITS/3 ML INSULN.PEN SQ SCH (18:23)
[2017-01-15 18:45] VITALS: BP 196/51
[2017-01-15 19:17] VITALS: BP 179/61
[2017-01-15] MEDS ORDERED: LABETALOL 20 MG/4 ML DISP.SYRIN. IVP PRN (20:15)
[2017-01-15] MEDS: METOPROLOL TART IMMED RELEASE 25 MG TABLET. PO SCH (20:51)
[2017-01-15] MEDS: ATORVASTATIN CALCIUM 40 MG TABLET. PO SCH (20:51)
[2017-01-15] MEDS: CIPROFLOXACIN 0.3% OPHTH SOLUTION 5ML BOTTLE. OD SCH (20:51)
[2017-01-15] MEDS ORDERED: INSULIN DETEMIR 300 UNITS/3 ML INSULN.PEN. SQ SCH (21:00)
[2017-01-15 22:10] VITALS: BP 170/57
[2017-01-15] MEDS: hydrALAZINE 20 MG/ML VIAL. IVP PRN (22:55)
--- NOTE | 2017-01-16 01:31 | ACF ---
Admission Forms Criteria HYPERTENSION Clinical Indications for Admission to Inpatient Care ( Place "X" for any and all applicable criteria): Admission is indicated for 1 or more of the following(1)(2)(3)(4)(5)(6)(7)(8)(9) (10): [ ]I. Hypertensive emergency, with evidence of acute and progressing target organ disease as indicated by 1 or more of the following: [ ]a) Hypertensive encephalopathy (eg, confusion, altered mental status) [ ]b) Cerebral infarction [ ]c) Intracranial hemorrhage [ ]d) Myocardial ischemia or infarction [ ]e) Heart failure (eg. Pulmonary edema) [ ]f) Aortic dissection [ ]g) Increased creatinine (new) with reduction of more than 50% in estimated glomerular filtration rate from baseline [ ]h) Seizure [ ]i) Papilledema [ ]j) Retinal hemorrhage [ ]k) Microangiopathic hemolytic anemia [ ]l) Other significant finding secondary to hypertension [ ]II. Adrenergic or sympathomimetic crisis (eg, severe hypertension due to pheochromocytoma crisis, cocaine or amphetamine intoxication, or clonidine withdrawal) [X]III. Severe hypertension (SBP greater than 180 mmHg or DBP greater than 110 mmHg or greater than the 95th percentile for age, gender, and height in pediatric patients) that cannot be controlled (eg, to SBP less than 160 mmHg and DBP less than 100 mmHg in adults) by treatment with oral medication in emergency department or observation care Extended stay beyond goal length of stay may be needed for(11)(12)(13): [ ]a) Persistent hypertensive encephalopathy [ ]b) Continuation of pulmonary edema [ ]c) Recurring or persistent severe hypertension [ ]d) Target organ damage (eg, angina, stroke, aortic dissection) The original [employer] content created by [employer] has been revised. The portions of the content which have been revised are identified through the use of italic text, and [employer] has neither reviewed nor approved the modified material. All other unmodified content is copyright [employer]. Please see references footnoted in the original [employer] edition 2014 Admission Criteria Met?: Yes TALIB DYER Jan 16, 2017 01:31
[2017-01-16 03:16] VITALS: BP 151/61
[2017-01-16] MEDS ORDERED: LOSA100T6 PO (03:56)
[2017-01-16] MEDS ORDERED: AMLO5TAB2 PO (03:56)
[2017-01-16] MEDS ORDERED: POTA20TA82 PO (03:56)
[2017-01-16] MEDS ORDERED: PIOG30TA41 PO (03:56)
[2017-01-16] MEDS ORDERED: FURO40TA4 PO (03:56)
[2017-01-16] MEDS ORDERED: LEVO50TA5 PO (03:56)
[2017-01-16] MEDS ORDERED: GINK60CA7 PO (04:00)
[2017-01-16] MEDS ORDERED: ASPI-482 PO (04:00)
[2017-01-16 07:00] VITALS: BP 181/45
[2017-01-16] MEDS: INSULIN ASPART 300 UNITS/3 ML INSULN.PEN SQ SCH ×6 (08:00→17:28)
[2017-01-16] MEDS: CIPROFLOXACIN 0.3% OPHTH SOLUTION 5ML BOTTLE. OD SCH ×4 (08:37→20:55)
[2017-01-16] MEDS: METOPROLOL TART IMMED RELEASE 25 MG TABLET. PO SCH ×2 (08:39→20:55)
[2017-01-16] MEDS: amLODIPine BESYLATE 2.5 MG TABLET PO SCH (08:39)
[2017-01-16] MEDS: CHOLECALCIFEROL (VITAMIN D3) 1,000 UNIT TABLET PO SCH (08:56)
[2017-01-16] MEDS: hydrALAZINE 20 MG/ML VIAL. IVP PRN (08:58)
[2017-01-16] MEDS: guaiFENesin DM 200MG/20MG 10 ML SYRUP PO SCH ×4 (09:00→20:54)
[2017-01-16] MEDS ORDERED: DEXTROSE 50% 25 GM / 50ML DISP.SYRIN. IV PRN (09:15)
[2017-01-16] MEDS ORDERED: PIOGLITAZONE 15 MG TABLET. PO SCH (09:30)
--- NOTE | 2017-01-16 09:33 | PDOC2 ---
CONSULT Date of Consult Date of Consult DATE: 01/16/17 TIME: 09:29 Reason for Consult Reason for Consult: RENAL FAILURE AND HTN Referring Physician Referring Physician: MICKIE Identification/Chief Complaint Chief Complaint SOB Problems: Source Source: Chart review, Patient History of Present Illness Reason for Visit: THIS IS AN 86 YR OLD ADMITTED WITH SOB AND HTN. BP VERY HIGH WITH SBP OVER 200 ON PRESENTATION. CR IS 1.4. OLD RECORDS SHOW CR IN THE RANGE OF 1.4-1.7 C/W STAGE 3 TO 4 CKD. PT NOT AWARE OF ANY CKD. SHE ALSO COMPLAINTS OF LE EDEMA WHICH HAS BEEN PROGRESSIVE Past Medical History Cardiovascular: CAD, CHF, HTN, Hyperlipidemia, Other Pulmonary: No pertinent hx CENTRAL NERVOUS SYSTEM: Other Heme/Onc: Anemia NOS Hepatobiliary: No pertinent hx Psych: No pertinent hx Musculoskeletal: Osteoarthritis Rheumatologic: No pertinent hx Infectious disease: No pertinent hx Renal/: Chronic renal insuff Endocrine: Diabetes, Hypothyroidism Past Surgical History Past Surgical History: Appendectomy, CABG, Other Family History Family History: Diabetes Social History No ALCOHOL: none Drugs: None Lives: Alone Current Problem List Problem List Problems Medical Problems: (1) Severe protein-calorie malnutrition Status: Acute Current Medications Current Medications Current Medications Hydralazine HCl (Apresoline) 10 mg 1X ONCE IVP Last administered on 01/15/17 16:45; Start 01/15/17 at 15:30; Stop 01/15/17 at 15:31; Status DC Atorvastatin Calcium (Lipitor) 40 mg QHS PO Last administered on 01/15/17 20: 51; Start 01/15/17 at 21:00 Guaifenesin (Robitussin Dm) 10 ml QID PO ; Start 01/15/17 at 17:00 Metoprolol Tartrate (Lopressor) 25 mg BID PO Last administered on 01/16/17 08: 39; Start 01/15/17 at 21:00 Albuterol Sulfate (Ventolin Neb Soln) 2.5 mg PRN Q4HRS PRN NEB SHORTNESS OF BREATH Last administered on 01/15/17 20:42; Start 01/15/17 at 17:00 Vitamin D (Vitamin D3) 2,000 unit DAILY PO Last administered on 01/16/17 08:56 ; Start 01/16/17 at 09:00 Insulin Detemir (Levemir) 8 units QHS SQ Last administered on 01/15/17 21:01; Start 01/15/17 at 21:00; Stop 01/16/17 at 09:18; Status DC Insulin Aspart (NovoLOG) 5 units TIDAC SQ Last administered on 01/16/17 08:40 ; Start 01/16/17 at 07:30 Insulin Aspart (NovoLOG) 0-5 UNITS TIDWMEALS SQ Last administered on 01/15/17 18:23; Start 01/15/17 at 17:00; Stop 01/16/17 at 09:18; Status DC Dextrose (Dextrose 50%-Water Syringe) 12.5 gm PRN Q15MIN PRN IV SEE COMMENTS; Start 01/15/17 at 17:00 Amlodipine Besylate (Norvasc) 2.5 mg DAILY PO Last administered on 01/16/17 08 :39; Start 01/15/17 at 17:00; Stop 01/16/17 at 09:26; Status DC Ciprofloxacin (Ciloxan Ophth) 1 drop QID OD Last administered on 01/16/17 08: 37; Start 01/15/17 at 19:00 Labetalol HCl (Normodyne) 20 mg PRN Q2HR PRN IVP HYPERTENSION, SEE COMMENTS; Start 01/15/17 at 20:15 Hydralazine HCl (Apresoline) 10 mg PRN Q4HRS PRN IVP ELEVATED BP, SEE COMMENTS Last administered on 01/16/17 08:58; Start 01/15/17 at 20:15 Amlodipine Besylate (Norvasc) 5 mg DAILY PO ; Start 01/17/17 at 09:00 Aspirin (Ecotrin) 81 mg DAILY PO ; Start 01/16/17 at 10:00 Levothyroxine Sodium (Synthroid) 50 mcg DAILY07 PO ; Start 01/16/17 at 10:30 Pioglitazone HCl (Actos) 30 mg DAILY PO ; Start 01/16/17 at 09:30 Insulin Detemir (Levemir) 12 units QHS SQ ; Start 01/16/17 at 21:00 Insulin Aspart (NovoLOG) 0-9 UNITS TIDWMEALS SQ ; Start 01/16/17 at 12:00 Dextrose (Dextrose 50%-Water Syringe) 12.5 gm PRN Q15MIN PRN IV SEE COMMENTS; Start 01/16/17 at 09:15 Active Scripts Active Proair Hfa Inhaler (Albuterol Sulfate) 8.5 Gm Hfa.aer.ad 2 Puff INH PRN Q4-6HRS PRN Doxycycline Hyclate 100 Mg Tablet 100 Mg PO BID Guaifenesin Dm Syrup (Guaifenesin/Dextromethorphan) 5 Ml Syrup 10 Ml PO QID Metoprolol Tartrate 50 Mg Tablet 25 Mg PO BID Reported Aspir 81 (Aspirin) 81 Mg Tablet.dr 1 Tab PO DAILY Ginkgo Biloba (Ginkgo Biloba Wann Extract) 30 Mg Capsule Unknown Dose PO DAILY Amlodipine Besylate 5 Mg Tablet 5 Mg PO DAILY Levothyroxine Sodium 50 Mcg Tablet 1 Tab PO DAILY Losartan Potassium 100 Mg Tablet 100 Mg PO DAILY Actos (Pioglitazone Hcl) 30 Mg Tablet 1 Tab PO DAILY Atorvastatin Calcium 40 Mg Tablet 1 Tab PO QHS Humulin N (Nph, Human Insulin Isophane) 100 Unit/1 Ml Vial 8 Unit SQ QHS Humulin N (Nph, Human Insulin Isophane) 100 Unit/1 Ml Vial 6 Unit SQ DAILYAC Humulin R (Insulin Regular, Human) 100 Unit/1 Ml Vial 8 Unit IJ DAILYBFRSUP Vitamin D (Cholecalciferol (Vitamin D3)) 1,000 Unit Capsule 2 Cap PO DAILY Fish Oil 1,200 Mg Softgel ([place]-3S/Dha/Epa/Fish Oil) 1 Each Capsule Allergies Allergies: Coded Allergies: No Known Drug Allergies (Unverified , 01/15/17) ROS General: YES: Fatigue, Malaise PSYCHOLOGICAL ROS: YES: Anxiety Eyes: Yes Decreased vision HEENT: YES: Heacaches Respiratory: YES: Cough, Orthopnea, Shortness of breath, SOB with excertion Cardiovascular: yes Edema Gastrointestinal: Yes Constipation Genitourinary: YES Incontinence Musculoskeletal: Yes Muscular Weakness Neurological: Yes Weakness Skin: Yes Dry Skin Physical Exam General: Alert, Oriented X3, Cooperative, No acute distress HEENT: Atraumatic, PERRLA, Other (DECREASED AT BASES) Heart: Regular rate, Normal S2 Abdomen: Normal bowel sounds, Soft, No tenderness Extremities: No clubbing Neuro: Normal speech, Cranial nerves 3-12 NL Psych/Mental Status: Mental status NL, Mood NL MUSCULOSKELETAL: No deformity, Other (3+EDEMA) Vitals VITALS Vital Signs Date Time Temp Pulse Resp B/P (MAP) Pulse Ox O2 Delivery O2 Flow Rate FiO2 01/16/17 08:58 68 190/61 01/16/17 07:58 Room Air 01/16/17 07:00 97.9 18 93 3.0 97.9 Labs Labs Laboratory Tests Test 01/15/17 13:45 01/15/17 14:50 01/15/17 17:04 01/15/17 20:57 White Blood Count 6.2 x10^3/uL (4.0-11.0) Red Blood Count 3.76 x10^6/uL (3.50-5.40) Hemoglobin 11.1 g/dL (12.0-15.5) Hematocrit 34.3 % (36.0-47.0) Mean Corpuscular Volume 91 fL (79-100) Mean Corpuscular Hemoglobin 30 pg (25-35) Mean Corpuscular Hemoglobin Concent 33 g/dL (31-37) Red Cell Distribution Width 14.4 % (11.5-14.5) Platelet Count 178 x10^3/uL (140-400) Neutrophils (%) (Auto) 76 % (31-73) Lymphocytes (%) (Auto) 15 % (24-48) Monocytes (%) (Auto) 6 % (0-9) Eosinophils (%) (Auto) 2 % (0-3) Basophils (%) (Auto) 1 % (0-3) Neutrophils # (Auto) 4.7 x10^3uL (1.8-7.7) Lymphocytes # (Auto) 0.9 x10^3/uL (1.0-4.8) Monocytes # (Auto) 0.4 x10^3/uL (0.0-1.1) Eosinophils # (Auto) 0.1 x10^3/uL (0.0-0.7) Basophils # (Auto) 0.0 x10^3/uL (0.0-0.2) Sodium Level 138 mmol/L (136-145) Potassium Level 4.1 mmol/L (3.5-5.1) Chloride Level 102 mmol/L (98-107) Carbon Dioxide Level 27 mmol/L (21-32) Anion Gap 9 (6-14) Blood Urea Nitrogen 14 mg/dL (7-20) Creatinine 1.4 mg/dL (0.6-1.0) Estimated GFR (Cockcroft-Gault) 35.7 BUN/Creatinine Ratio 10 (6-20) Glucose Level 176 mg/dL (70-99) Calcium Level 9.5 mg/dL (8.5-10.1) Total Bilirubin 0.4 mg/dL (0.2-1.0) Aspartate Amino Transf (AST/SGOT) 30 U/L (15-37) Alanine Aminotransferase (ALT/SGPT) 16 U/L (14-59) Alkaline Phosphatase 75 U/L (46-116) Creatine Kinase < 7 U/L (26-192) Creatine Kinase MB (Mass) 2.2 ng/mL (0.0-3.6) Creatine Kinase MB Relative Index % (0-4) Troponin I Quantitative 0.019 ng/mL (0.000-0.055) AJ-Nlp-D-Type Natriuretic Peptide < 5 pg/mL (0-449) Total Protein 6.8 g/dL (6.4-8.2) Albumin 2.4 g/dL (3.4-5.0) Albumin/Globulin Ratio 0.5 (1.0-1.7) Urine Collection Type Unknown Urine Color Yellow Urine Clarity Clear Urine pH 7.0 Urine Specific [place] 1.020 Urine Protein >=300 mg/dL (NEG-TRACE) Urine Glucose (UA) 100 mg/dL (NEG) Urine Ketones (Stick) Negative mg/dL (NEG) Urine Blood Small (NEG) Urine Nitrite Negative (NEG) Urine Bilirubin Negative (NEG) Urine Urobilinogen Dipstick 0.2 mg/dL (0.2 mg/dL) Urine Leukocyte Esterase Negative (NEG) Urine RBC 6-10 /HPF (0-2) Urine WBC 1-4 /HPF (0-4) Urine Squamous Epithelial Cells Few /LPF Urine Bacteria Few /HPF (0-FEW) Urine Mucus Mod /LPF Glucose (Fingerstick) 192 mg/dL (70-99) 231 mg/dL (70-99) Laboratory Tests Test 01/15/17 13:45 01/15/17 14:50 01/15/17 17:04 01/15/17 20:57 White Blood Count 6.2 x10^3/uL (4.0-11.0) Red Blood Count 3.76 x10^6/uL (3.50-5.40) Hemoglobin 11.1 g/dL (12.0-15.5) Hematocrit 34.3 % (36.0-47.0) Mean Corpuscular Volume 91 fL (79-100) Mean Corpuscular Hemoglobin 30 pg (25-35) Mean Corpuscular Hemoglobin Concent 33 g/dL (31-37) Red Cell Distribution Width 14.4 % (11.5-14.5) Platelet Count 178 x10^3/uL (140-400) Neutrophils (%) (Auto) 76 % (31-73) Lymphocytes (%) (Auto) 15 % (24-48) Monocytes (%) (Auto) 6 % (0-9) Eosinophils (%) (Auto) 2 % (0-3) Basophils (%) (Auto) 1 % (0-3) Neutrophils # (Auto) 4.7 x10^3uL (1.8-7.7) Lymphocytes # (Auto) 0.9 x10^3/uL (1.0-4.8) Monocytes # (Auto) 0.4 x10^3/uL (0.0-1.1) Eosinophils # (Auto) 0.1 x10^3/uL (0.0-0.7) Basophils # (Auto) 0.0 x10^3/uL (0.0-0.2) Sodium Level 138 mmol/L (136-145) Potassium Level 4.1 mmol/L (3.5-5.1) Chloride Level 102 mmol/L (98-107) Carbon Dioxide Level 27 mmol/L (21-32) Anion Gap 9 (6-14) Blood Urea Nitrogen 14 mg/dL (7-20) Creatinine 1.4 mg/dL (0.6-1.0) Estimated GFR (Cockcroft-Gault) 35.7 BUN/Creatinine Ratio 10 (6-20) Glucose Level 176 mg/dL (70-99) Calcium Level 9.5 mg/dL (8.5-10.1) Total Bilirubin 0.4 mg/dL (0.2-1.0) Aspartate Amino Transf (AST/SGOT) 30 U/L (15-37) Alanine Aminotransferase (ALT/SGPT) 16 U/L (14-59) Alkaline Phosphatase 75 U/L (46-116) Creatine Kinase < 7 U/L (26-192) Creatine Kinase MB (Mass) 2.2 ng/mL (0.0-3.6) Creatine Kinase MB Relative Index % (0-4) Troponin I Quantitative 0.019 ng/mL (0.000-0.055) HQ-Afq-I-Type Natriuretic Peptide < 5 pg/mL (0-449) Total Protein 6.8 g/dL (6.4-8.2) Albumin 2.4 g/dL (3.4-5.0) Albumin/Globulin Ratio 0.5 (1.0-1.7) Urine Collection Type Unknown Urine Color Yellow Urine Clarity Clear Urine pH 7.0 Urine Specific [place] 1.020 Urine Protein >=300 mg/dL (NEG-TRACE) Urine Glucose (UA) 100 mg/dL (NEG) Urine Ketones (Stick) Negative mg/dL (NEG) Urine Blood Small (NEG) Urine Nitrite Negative (NEG) Urine Bilirubin Negative (NEG) Urine Urobilinogen Dipstick 0.2 mg/dL (0.2 mg/dL) Urine Leukocyte Esterase Negative (NEG) Urine RBC 6-10 /HPF (0-2) Urine WBC 1-4 /HPF (0-4) Urine Squamous Epithelial Cells Few /LPF Urine Bacteria Few /HPF (0-FEW) Urine Mucus Mod /LPF Glucose (Fingerstick) 192 mg/dL (70-99) 231 mg/dL (70-99) Assessment/Plan Assessment/Plan IMP MALIGNANT HTN CKD STAGE 3 TO 4 WITH CR BASELINE OF 1.4-1.7 LE EDEMA DIASTOLIC CHF DM II PLAN NORVASC INCREASED RESUME HER ARB START DIURETICS HTN PARTLY VOLUME DEPENDENT LABS IN AM SYEDA LEVINE MD Jan 16, 2017 09:33
--- NOTE | 2017-01-16 09:38 | PDOC2 ---
TERESA JUNIOR GANG INVESTIGATOR 01/16/17 0938: CARDIAC CONSULT DATE OF CONSULT Date of Consult DATE: 01/16/17 TIME: 09:21 REASON FOR CONSULT Reason for Consult: Accelerated HTN REFERRING PHYSICIAN Referring Physician: Vidal SOURCE Source: Chart review, Patient HISTORY OF PRESENT ILLNESS HISTORY OF PRESENT ILLNESS This is a pleasant 86 yo female admitted for complains of increasing SOA and MARIE. In the last 2 weeks she has been having this episodes and more pronunced in the last few days. No CP, palpitations but positive for orthopnea, PND, and increasing leg swelling. SHe has been taking all her medications but she ran out of her lasix and could not tell me when was her last dose but it has been a while she said. 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) Renal/: Chronic renal insuff Endocrine: Diabetes (2), Hypothyroidism PAST SURGICAL HISTORY Past Surgical History Appendectomy, CABG (x3 in 2000), Other (external iliac stents) FAMILY HISTORY Family History: Diabetes SOCIAL HISTORY Social History Smoke: No (quit) ALCOHOL: none Drugs: None Lives: Alone CURRENT MEDICATIONS CURRENT MEDICATIONS Current Medications Medications (Trade) Dose Ordered Sig/Aquiles Route PRN Reason Start Time Stop Time Status Last Admin Dose Admin Hydralazine HCl (Apresoline) 10 mg 1X ONCE IVP 01/15/17 15:30 01/15/17 15:31 DC 01/15/17 16:45 Atorvastatin Calcium (Lipitor) 40 mg QHS PO 01/15/17 21:00 01/15/17 20:51 Metoprolol Tartrate (Lopressor) 25 mg BID PO 01/15/17 21:00 01/16/17 08:39 Albuterol Sulfate (Ventolin Neb Soln) 2.5 mg PRN Q4HRS PRN NEB SHORTNESS OF BREATH 01/15/17 17:00 01/15/17 20:42 Vitamin D (Vitamin D3) 2,000 unit DAILY PO 01/16/17 09:00 01/16/17 08:56 Insulin Detemir (Levemir) 8 units QHS SQ 01/15/17 21:00 01/16/17 09:18 DC 01/15/17 21:01 Insulin Aspart (NovoLOG) 5 units TIDAC SQ 01/16/17 07:30 01/16/17 08:40 Insulin Aspart (NovoLOG) 0-5 UNITS TIDWMEALS SQ 01/15/17 17:00 01/16/17 09:18 DC 01/15/17 18:23 Amlodipine Besylate (Norvasc) 2.5 mg DAILY PO 01/15/17 17:00 01/16/17 08:39 Ciprofloxacin (Ciloxan Ophth) 1 drop QID OD 01/15/17 19:00 01/16/17 08:37 Hydralazine HCl (Apresoline) 10 mg PRN Q4HRS PRN IVP ELEVATED BP, SEE COMMENTS 01/15/17 20:15 01/16/17 08:58 ALLERGIES ALLERGIES: Coded Allergies: No Known Drug Allergies (Unverified , 01/15/17) ROS Review of System 14 point ROS evaluated with pertinent positives noted per HPI PHYSICAL EXAM General: Alert, Oriented X3, Cooperative, mild distress HEENT: Atraumatic, Mucous membr. moist/pink Lungs: Other (basilar crackles) Heart: Regular rate (SR), Normal S1, Normal S2, Other (S4; 3/6 systolic murmur to LLS border) Abdomen: Soft Extremities: No cyanosis, Other (2-3+ bilateral LE pitting edema) Skin: No breakdown, No significant lesion Neuro: Normal speech, Sensation intact Psych/Mental Status: Mental status NL, Mood NL MUSCULOSKELETAL: Osteoarthritic changes both hands VITALS VITALS Vital Signs Date Time Temp Pulse Resp B/P (MAP) Pulse Ox O2 Delivery O2 Flow Rate FiO2 01/16/17 08:58 68 190/61 01/16/17 07:58 Room Air 01/16/17 07:00 97.9 18 93 3.0 97.9 LABS Lab: Laboratory Tests Test 01/15/17 13:45 01/15/17 14:50 01/15/17 17:04 01/15/17 20:57 White Blood Count 6.2 x10^3/uL (4.0-11.0) Red Blood Count 3.76 x10^6/uL (3.50-5.40) Hemoglobin 11.1 g/dL (12.0-15.5) Hematocrit 34.3 % (36.0-47.0) Mean Corpuscular Volume 91 fL (79-100) Mean Corpuscular Hemoglobin 30 pg (25-35) Mean Corpuscular Hemoglobin Concent 33 g/dL (31-37) Red Cell Distribution Width 14.4 % (11.5-14.5) Platelet Count 178 x10^3/uL (140-400) Neutrophils (%) (Auto) 76 % (31-73) Lymphocytes (%) (Auto) 15 % (24-48) Monocytes (%) (Auto) 6 % (0-9) Eosinophils (%) (Auto) 2 % (0-3) Basophils (%) (Auto) 1 % (0-3) Neutrophils # (Auto) 4.7 x10^3uL (1.8-7.7) Lymphocytes # (Auto) 0.9 x10^3/uL (1.0-4.8) Monocytes # (Auto) 0.4 x10^3/uL (0.0-1.1) Eosinophils # (Auto) 0.1 x10^3/uL (0.0-0.7) Basophils # (Auto) 0.0 x10^3/uL (0.0-0.2) Sodium Level 138 mmol/L (136-145) Potassium Level 4.1 mmol/L (3.5-5.1) Chloride Level 102 mmol/L (98-107) Carbon Dioxide Level 27 mmol/L (21-32) Anion Gap 9 (6-14) Blood Urea Nitrogen 14 mg/dL (7-20) Creatinine 1.4 mg/dL (0.6-1.0) Estimated GFR (Cockcroft-Gault) 35.7 BUN/Creatinine Ratio 10 (6-20) Glucose Level 176 mg/dL (70-99) Calcium Level 9.5 mg/dL (8.5-10.1) Total Bilirubin 0.4 mg/dL (0.2-1.0) Aspartate Amino Transf (AST/SGOT) 30 U/L (15-37) Alanine Aminotransferase (ALT/SGPT) 16 U/L (14-59) Alkaline Phosphatase 75 U/L (46-116) Creatine Kinase < 7 U/L (26-192) Creatine Kinase MB (Mass) 2.2 ng/mL (0.0-3.6) Creatine Kinase MB Relative Index % (0-4) Troponin I Quantitative 0.019 ng/mL (0.000-0.055) BZ-[id number]-F-Type Natriuretic Peptide < 5 pg/mL (0-449) Total Protein 6.8 g/dL (6.4-8.2) Albumin 2.4 g/dL (3.4-5.0) Albumin/Globulin Ratio 0.5 (1.0-1.7) Urine Collection Type Unknown Urine Color Yellow Urine Clarity Clear Urine pH 7.0 Urine Specific [place] 1.020 Urine Protein >=300 mg/dL (NEG-TRACE) Urine Glucose (UA) 100 mg/dL (NEG) Urine Ketones (Stick) Negative mg/dL (NEG) Urine Blood Small (NEG) Urine Nitrite Negative (NEG) Urine Bilirubin Negative (NEG) Urine Urobilinogen Dipstick 0.2 mg/dL (0.2 mg/dL) Urine Leukocyte Esterase Negative (NEG) Urine RBC 6-10 /HPF (0-2) Urine WBC 1-4 /HPF (0-4) Urine Squamous Epithelial Cells Few /LPF Urine Bacteria Few /HPF (0-FEW) Urine Mucus Mod /LPF Glucose (Fingerstick) 192 mg/dL (70-99) 231 mg/dL (70-99) ECHOCARDIOGRAM ECHOCARDIOGRAM <Conclusion> The left ventricular systolic function is normal and the ejection fraction is within normal range. The Ejection Fraction is 60-65%. There is normal LV segmental wall motion, septal motion suggestive of conduction deficit. Doppler and Color Flow revealed moderate tricuspid regurgitation. There is severe pulmonary hypertension. The PA pressure was estimated at 92 mmHg. DATE: 10/07/16 1138 ASSESSMENT/PLAN ASSESSMENT/PLAN 1. Malignant HTN 2. Acute on Chronic diastolic CHF: ran out of lasix for unknown period of time 3. Hx of PSVT with possible PAFIB: remains in SR. 4. Severe pulmonary HTN 5. DM2/HLP 6. CAD/PAD: stable 7. CKD3 Recommendations 1. Pt was a DNR/DNI and again does not want to pursue any invasive procedures and only medical treatment 2. Continue home regimen. Will increase norvasc and start IV lasix. Hydralazine IV PRN 3. significant discussion with her in regards to not running out of meds. 4. Consider discontinuing actos..5. Continue with metoprolol and ASA. 5. High normal BP OK, will avoid significant preload reduction with notable PAP in the 90s Problems: DAVEY DENISE MD 01/18/17 1908: CARDIAC CONSULT ALLERGIES ALLERGIES: Coded Allergies: No Known Drug Allergies (Unverified , 01/15/17) ASSESSMENT/PLAN ASSESSMENT/PLAN Pt. seen and examined. Agree with above ASSISTANT ANALYST note. Late entry for 01/16/2017 Med changes as above. Ok to DC. Will f/u in the office. Thanks for consult. Problems: TERESA JUNIOR APRN Jan 16, 2017 09:38 DAVEY DENISE MD Jan 18, 2017 19:08
[2017-01-16] MEDS ORDERED: amLODIPine BESYLATE 5 MG TABLET PO ONE (09:45)
[2017-01-16] MEDS ORDERED: FUROSEMIDE 40 MG/4 ML VIAL. IVP SCH (10:00)
[2017-01-16] MEDS: LEVOTHYROXINE 50 MCG TABLET PO SCH (10:01)
[2017-01-16] MEDS: ASPIRIN ENTERIC COATED 81 MG TABLET.DR. PO SCH (10:01)
[2017-01-16] MEDS: LOSARTAN POTASSIUM 50 MG TABLET. PO SCH (10:03)
[2017-01-16] MEDS: FUROSEMIDE 40 MG/4 ML VIAL. IVP SCH ×3 (10:05→16:00)
[2017-01-16 11:00] VITALS: BP 116/41
--- NOTE | 2017-01-16 13:00 | CARD ---
APPROVED REPORT EXAM: LIMITED Two-dimensional and M-mode echocardiogram with Doppler and color Doppler. Other Information Quality : Average Rhythm : NSR INDICATION Hypertension/HCVD Pulmonary Hypertention LV Function:Systolic 2D DIMENSIONS Left Atrium(2D)4.4 (1.6-4.0cm)IVSd1.0 (0.7-1.1cm) Aortic Root(2D)2.6 (2.0-3.7cm)LVDd4.0 (3.9-5.9cm) PWd1.0 (0.7-1.1cm)LVDs2.6 (2.5-4.0cm) FS (%) 34.8 %SV44.9 ml LVEF(%)64.6 (>50%) Tricuspid Valve TR P. [id number] TR Peak Gr.[id number] LEFT VENTRICLE The left ventricle is normal size. There is normal left ventricular wall thickness. Left ventricle sy stolic function is normal. The Ejection Fraction is 60-65%. There is normal LV segmental wall motion. RIGHT VENTRICLE The right ventricular systolic function is normal. ATRIA The left atrium is borderline dilated. TRICUSPID VALVE The tricuspid valve is not well visualized. Doppler and Color Flow revealed moderate tricuspid regurg itation. The PA pressure was estimated at 66 mmHg. GREAT VESSELS na The IVC is dilated and collapses <50% with inspiration. PERICARDIAL EFFUSION There is no evidence of significant pericardial effusion. Critical Notification Critical Value: No <Conclusion> Limited echo to evaluate pulmonary hypertension. Valves other than tricuspid valve not interrogated. Left ventricle systolic function is normal. The Ejection Fraction is 60-65%. There is normal LV segmental wall motion. Moderate tricuspid regurgitation. The PA pressure was estimated at 66 mmHg. There is no evidence of significant pericardial effusion.
--- NOTE | 2017-01-16 13:31 | PDOC ---
PROGRESS NOTES Chief Complaint Chief Complaint Accelerated HTn, dyspnea on exertion acute diastolic CHF CAD hx CABG DM 2 on insulin History of Present Illness History of Present Illness BP still high BS on high side CREat 1.4 Rt eye does not look injected to me in my rounds today PLAN: Resume home meds except losartan and metformin LOw IVF rate - recheck BMP leonor INc SSI to high dose INc levemir from 8 to 10 qhs PT/OT Follow cards recs Vitals Vitals Vital Signs Date Time Temp Pulse Resp B/P (MAP) Pulse Ox O2 Delivery O2 Flow Rate FiO2 01/16/17 11:00 98.0 66 18 116/41 (66) 93 Nasal Cannula 3.0 98.0 Physical Exam General: Alert, Oriented X3, Cooperative, mild distress Heart: Regular rate (SR), Normal S1, Normal S2, Other (S4; 3/6 systolic murmur to LLS border) Lungs: Clear Abdomen: Soft Extremities: No cyanosis, Other (2-3+ bilateral LE pitting edema) Skin: No breakdown, No significant lesion Labs LABS Laboratory Tests Test 01/15/17 13:45 01/15/17 14:50 01/15/17 17:04 01/15/17 20:57 White Blood Count 6.2 x10^3/uL (4.0-11.0) Red Blood Count 3.76 x10^6/uL (3.50-5.40) Hemoglobin 11.1 g/dL (12.0-15.5) Hematocrit 34.3 % (36.0-47.0) Mean Corpuscular Volume 91 fL (79-100) Mean Corpuscular Hemoglobin 30 pg (25-35) Mean Corpuscular Hemoglobin Concent 33 g/dL (31-37) Red Cell Distribution Width 14.4 % (11.5-14.5) Platelet Count 178 x10^3/uL (140-400) Neutrophils (%) (Auto) 76 % (31-73) Lymphocytes (%) (Auto) 15 % (24-48) Monocytes (%) (Auto) 6 % (0-9) Eosinophils (%) (Auto) 2 % (0-3) Basophils (%) (Auto) 1 % (0-3) Neutrophils # (Auto) 4.7 x10^3uL (1.8-7.7) Lymphocytes # (Auto) 0.9 x10^3/uL (1.0-4.8) Monocytes # (Auto) 0.4 x10^3/uL (0.0-1.1) Eosinophils # (Auto) 0.1 x10^3/uL (0.0-0.7) Basophils # (Auto) 0.0 x10^3/uL (0.0-0.2) Sodium Level 138 mmol/L (136-145) Potassium Level 4.1 mmol/L (3.5-5.1) Chloride Level 102 mmol/L (98-107) Carbon Dioxide Level 27 mmol/L (21-32) Anion Gap 9 (6-14) Blood Urea Nitrogen 14 mg/dL (7-20) Creatinine 1.4 mg/dL (0.6-1.0) Estimated GFR (Cockcroft-Gault) 35.7 BUN/Creatinine Ratio 10 (6-20) Glucose Level 176 mg/dL (70-99) Calcium Level 9.5 mg/dL (8.5-10.1) Total Bilirubin 0.4 mg/dL (0.2-1.0) Aspartate Amino Transf (AST/SGOT) 30 U/L (15-37) Alanine Aminotransferase (ALT/SGPT) 16 U/L (14-59) Alkaline Phosphatase 75 U/L (46-116) Creatine Kinase < 7 U/L (26-192) Creatine Kinase MB (Mass) 2.2 ng/mL (0.0-3.6) Creatine Kinase MB Relative Index % (0-4) Troponin I Quantitative 0.019 ng/mL (0.000-0.055) OK-Uze-M-Type Natriuretic Peptide < 5 pg/mL (0-449) Total Protein 6.8 g/dL (6.4-8.2) Albumin 2.4 g/dL (3.4-5.0) Albumin/Globulin Ratio 0.5 (1.0-1.7) Urine Collection Type Unknown Urine Color Yellow Urine Clarity Clear Urine pH 7.0 Urine Specific [place] 1.020 Urine Protein >=300 mg/dL (NEG-TRACE) Urine Glucose (UA) 100 mg/dL (NEG) Urine Ketones (Stick) Negative mg/dL (NEG) Urine Blood Small (NEG) Urine Nitrite Negative (NEG) Urine Bilirubin Negative (NEG) Urine Urobilinogen Dipstick 0.2 mg/dL (0.2 mg/dL) Urine Leukocyte Esterase Negative (NEG) Urine RBC 6-10 /HPF (0-2) Urine WBC 1-4 /HPF (0-4) Urine Squamous Epithelial Cells Few /LPF Urine Bacteria Few /HPF (0-FEW) Urine Mucus Mod /LPF Glucose (Fingerstick) 192 mg/dL (70-99) 231 mg/dL (70-99) Review of Systems Review of Systems denies 14 pt reviewed Assessment and Plan Assessmemt and Plan Problems Medical Problems: (1) Severe protein-calorie malnutrition Status: Acute Problems: Comment Review of Relevant I have reviewed the following items mary (where applicable) has been applied. Labs Laboratory Tests Test 01/15/17 13:45 01/15/17 14:50 01/15/17 17:04 01/15/17 20:57 White Blood Count 6.2 x10^3/uL (4.0-11.0) Red Blood Count 3.76 x10^6/uL (3.50-5.40) Hemoglobin 11.1 g/dL (12.0-15.5) Hematocrit 34.3 % (36.0-47.0) Mean Corpuscular Volume 91 fL (79-100) Mean Corpuscular Hemoglobin 30 pg (25-35) Mean Corpuscular Hemoglobin Concent 33 g/dL (31-37) Red Cell Distribution Width 14.4 % (11.5-14.5) Platelet Count 178 x10^3/uL (140-400) Neutrophils (%) (Auto) 76 % (31-73) Lymphocytes (%) (Auto) 15 % (24-48) Monocytes (%) (Auto) 6 % (0-9) Eosinophils (%) (Auto) 2 % (0-3) Basophils (%) (Auto) 1 % (0-3) Neutrophils # (Auto) 4.7 x10^3uL (1.8-7.7) Lymphocytes # (Auto) 0.9 x10^3/uL (1.0-4.8) Monocytes # (Auto) 0.4 x10^3/uL (0.0-1.1) Eosinophils # (Auto) 0.1 x10^3/uL (0.0-0.7) Basophils # (Auto) 0.0 x10^3/uL (0.0-0.2) Sodium Level 138 mmol/L (136-145) Potassium Level 4.1 mmol/L (3.5-5.1) Chloride Level 102 mmol/L (98-107) Carbon Dioxide Level 27 mmol/L (21-32) Anion Gap 9 (6-14) Blood Urea Nitrogen 14 mg/dL (7-20) Creatinine 1.4 mg/dL (0.6-1.0) Estimated GFR (Cockcroft-Gault) 35.7 BUN/Creatinine Ratio 10 (6-20) Glucose Level 176 mg/dL (70-99) Calcium Level 9.5 mg/dL (8.5-10.1) Total Bilirubin 0.4 mg/dL (0.2-1.0) Aspartate Amino Transf (AST/SGOT) 30 U/L (15-37) Alanine Aminotransferase (ALT/SGPT) 16 U/L (14-59) Alkaline Phosphatase 75 U/L (46-116) Creatine Kinase < 7 U/L (26-192) Creatine Kinase MB (Mass) 2.2 ng/mL (0.0-3.6) Creatine Kinase MB Relative Index % (0-4) Troponin I Quantitative 0.019 ng/mL (0.000-0.055) CN-Hsk-Q-Type Natriuretic Peptide < 5 pg/mL (0-449) Total Protein 6.8 g/dL (6.4-8.2) Albumin 2.4 g/dL (3.4-5.0) Albumin/Globulin Ratio 0.5 (1.0-1.7) Urine Collection Type Unknown Urine Color Yellow Urine Clarity Clear Urine pH 7.0 Urine Specific [place] 1.020 Urine Protein >=300 mg/dL (NEG-TRACE) Urine Glucose (UA) 100 mg/dL (NEG) Urine Ketones (Stick) Negative mg/dL (NEG) Urine Blood Small (NEG) Urine Nitrite Negative (NEG) Urine Bilirubin Negative (NEG) Urine Urobilinogen Dipstick 0.2 mg/dL (0.2 mg/dL) Urine Leukocyte Esterase Negative (NEG) Urine RBC 6-10 /HPF (0-2) Urine WBC 1-4 /HPF (0-4) Urine Squamous Epithelial Cells Few /LPF Urine Bacteria Few /HPF (0-FEW) Urine Mucus Mod /LPF Glucose (Fingerstick) 192 mg/dL (70-99) 231 mg/dL (70-99) Laboratory Tests Test 01/15/17 13:45 01/15/17 14:50 01/15/17 17:04 01/15/17 20:57 White Blood Count 6.2 x10^3/uL (4.0-11.0) Red Blood Count 3.76 x10^6/uL (3.50-5.40) Hemoglobin 11.1 g/dL (12.0-15.5) Hematocrit 34.3 % (36.0-47.0) Mean Corpuscular Volume 91 fL (79-100) Mean Corpuscular Hemoglobin 30 pg (25-35) Mean Corpuscular Hemoglobin Concent 33 g/dL (31-37) Red Cell Distribution Width 14.4 % (11.5-14.5) Platelet Count 178 x10^3/uL (140-400) Neutrophils (%) (Auto) 76 % (31-73) Lymphocytes (%) (Auto) 15 % (24-48) Monocytes (%) (Auto) 6 % (0-9) Eosinophils (%) (Auto) 2 % (0-3) Basophils (%) (Auto) 1 % (0-3) Neutrophils # (Auto) 4.7 x10^3uL (1.8-7.7) Lymphocytes # (Auto) 0.9 x10^3/uL (1.0-4.8) Monocytes # (Auto) 0.4 x10^3/uL (0.0-1.1) Eosinophils # (Auto) 0.1 x10^3/uL (0.0-0.7) Basophils # (Auto) 0.0 x10^3/uL (0.0-0.2) Sodium Level 138 mmol/L (136-145) Potassium Level 4.1 mmol/L (3.5-5.1) Chloride Level 102 mmol/L (98-107) Carbon Dioxide Level 27 mmol/L (21-32) Anion Gap 9 (6-14) Blood Urea Nitrogen 14 mg/dL (7-20) Creatinine 1.4 mg/dL (0.6-1.0) Estimated GFR (Cockcroft-Gault) 35.7 BUN/Creatinine Ratio 10 (6-20) Glucose Level 176 mg/dL (70-99) Calcium Level 9.5 mg/dL (8.5-10.1) Total Bilirubin 0.4 mg/dL (0.2-1.0) Aspartate Amino Transf (AST/SGOT) 30 U/L (15-37) Alanine Aminotransferase (ALT/SGPT) 16 U/L (14-59) Alkaline Phosphatase 75 U/L (46-116) Creatine Kinase < 7 U/L (26-192) Creatine Kinase MB (Mass) 2.2 ng/mL (0.0-3.6) Creatine Kinase MB Relative Index % (0-4) Troponin I Quantitative 0.019 ng/mL (0.000-0.055) NA-Wuf-M-Type Natriuretic Peptide < 5 pg/mL (0-449) Total Protein 6.8 g/dL (6.4-8.2) Albumin 2.4 g/dL (3.4-5.0) Albumin/Globulin Ratio 0.5 (1.0-1.7) Urine Collection Type Unknown Urine Color Yellow Urine Clarity Clear Urine pH 7.0 Urine Specific [place] 1.020 Urine Protein >=300 mg/dL (NEG-TRACE) Urine Glucose (UA) 100 mg/dL (NEG) Urine Ketones (Stick) Negative mg/dL (NEG) Urine Blood Small (NEG) Urine Nitrite Negative (NEG) Urine Bilirubin Negative (NEG) Urine Urobilinogen Dipstick 0.2 mg/dL (0.2 mg/dL) Urine Leukocyte Esterase Negative (NEG) Urine RBC 6-10 /HPF (0-2) Urine WBC 1-4 /HPF (0-4) Urine Squamous Epithelial Cells Few /LPF Urine Bacteria Few /HPF (0-FEW) Urine Mucus Mod /LPF Glucose (Fingerstick) 192 mg/dL (70-99) 231 mg/dL (70-99) Medications Current Medications Hydralazine HCl (Apresoline) 10 mg 1X ONCE IVP Last administered on 01/15/17 16:45; Start 01/15/17 at 15:30; Stop 01/15/17 at 15:31; Status DC Atorvastatin Calcium (Lipitor) 40 mg QHS PO Last administered on 01/15/17 20: 51; Start 01/15/17 at 21:00 Guaifenesin (Robitussin Dm) 10 ml QID PO ; Start 01/15/17 at 17:00 Metoprolol Tartrate (Lopressor) 25 mg BID PO Last administered on 01/16/17 08: 39; Start 01/15/17 at 21:00 Albuterol Sulfate (Ventolin Neb Soln) 2.5 mg PRN Q4HRS PRN NEB SHORTNESS OF BREATH Last administered on 01/15/17 20:42; Start 01/15/17 at 17:00 Vitamin D (Vitamin D3) 2,000 unit DAILY PO Last administered on 01/16/17 08:56 ; Start 01/16/17 at 09:00 Insulin Detemir (Levemir) 8 units QHS SQ Last administered on 01/15/17 21:01; Start 01/15/17 at 21:00; Stop 01/16/17 at 09:18; Status DC Insulin Aspart (NovoLOG) 5 units TIDAC SQ Last administered on 01/16/17 12:27 ; Start 01/16/17 at 07:30 Insulin Aspart (NovoLOG) 0-5 UNITS TIDWMEALS SQ Last administered on 01/15/17 18:23; Start 01/15/17 at 17:00; Stop 01/16/17 at 09:18; Status DC Dextrose (Dextrose 50%-Water Syringe) 12.5 gm PRN Q15MIN PRN IV SEE COMMENTS; Start 01/15/17 at 17:00; Stop 01/16/17 at 09:57; Status DC Amlodipine Besylate (Norvasc) 2.5 mg DAILY PO Last administered on 01/16/17 08 :39; Start 01/15/17 at 17:00; Stop 01/16/17 at 09:26; Status DC Ciprofloxacin (Ciloxan Ophth) 1 drop QID OD Last administered on 01/16/17 08: 37; Start 01/15/17 at 19:00 Labetalol HCl (Normodyne) 20 mg PRN Q2HR PRN IVP HYPERTENSION, SEE COMMENTS; Start 01/15/17 at 20:15 Hydralazine HCl (Apresoline) 10 mg PRN Q4HRS PRN IVP ELEVATED BP, SEE COMMENTS Last administered on 01/16/17 08:58; Start 01/15/17 at 20:15 Amlodipine Besylate (Norvasc) 5 mg DAILY PO ; Start 01/17/17 at 09:00; Stop at 09:00; Status DC Aspirin (Ecotrin) 81 mg DAILY PO Last administered on 01/16/17 10:01; Start at 10:00 Levothyroxine Sodium (Synthroid) 50 mcg DAILY07 PO Last administered on 10:01; Start 01/16/17 at 10:30 Pioglitazone HCl (Actos) 30 mg DAILY PO Last administered on 01/16/17 10:02; Start 01/16/17 at 09:30 Insulin Detemir (Levemir) 12 units QHS SQ ; Start 01/16/17 at 21:00; Stop at 21:00; Status DC Insulin Aspart (NovoLOG) 0-9 UNITS TIDWMEALS SQ ; Start 01/16/17 at 12:00 Dextrose (Dextrose 50%-Water Syringe) 12.5 gm PRN Q15MIN PRN IV SEE COMMENTS; Start 01/16/17 at 09:15 Losartan Potassium (Cozaar) 50 mg DAILY PO Last administered on 01/16/17 10:03 ; Start 01/16/17 at 10:00 Furosemide (Lasix) 40 mg [id number] IVP Last administered on 01/16/17 10:05; Start 01/16/17 at 10:00 Insulin Detemir (Levemir) 10 units QHS SQ ; Start 01/16/17 at 21:00 Furosemide (Lasix) 40 mg [id number] IVP ; Start 01/16/17 at 10:00; Stop 01/16/17 at 10:00; Status DC Amlodipine Besylate (Norvasc) 10 mg DAILY PO ; Start 01/17/17 at 09:00 Amlodipine Besylate (Norvasc) 5 mg 1X ONCE PO Last administered on 01/16/17 10:02; Start 01/16/17 at 09:45; Stop 01/16/17 at 09:47; Status DC Active Scripts Active Proair Hfa Inhaler (Albuterol Sulfate) 8.5 Gm Hfa.aer.ad 2 Puff INH PRN Q4-6HRS PRN Doxycycline Hyclate 100 Mg Tablet 100 Mg PO BID Guaifenesin Dm Syrup (Guaifenesin/Dextromethorphan) 5 Ml Syrup 10 Ml PO QID Metoprolol Tartrate 50 Mg Tablet 25 Mg PO BID Reported Aspir 81 (Aspirin) 81 Mg Tablet.dr 1 Tab PO DAILY Ginkgo Biloba (Ginkgo Biloba [place] Extract) 30 Mg Capsule Unknown Dose PO DAILY Amlodipine Besylate 5 Mg Tablet 5 Mg PO DAILY Levothyroxine Sodium 50 Mcg Tablet 1 Tab PO DAILY Losartan Potassium 100 Mg Tablet 100 Mg PO DAILY Actos (Pioglitazone Hcl) 30 Mg Tablet 1 Tab PO DAILY Atorvastatin Calcium 40 Mg Tablet 1 Tab PO QHS Humulin N (Nph, Human Insulin Isophane) 100 Unit/1 Ml Vial 8 Unit SQ QHS Humulin N (Nph, Human Insulin Isophane) 100 Unit/1 Ml Vial 6 Unit SQ DAILYAC Humulin R (Insulin Regular, Human) 100 Unit/1 Ml Vial 8 Unit IJ DAILYBFRSUP Vitamin D (Cholecalciferol (Vitamin D3)) 1,000 Unit Capsule 2 Cap PO DAILY Fish Oil 1,200 Mg Softgel ([place]-3S/Dha/Epa/Fish Oil) 1 Each Capsule Vitals/I & O Vital Sign - Last 24 Hours 01/15/17 01/15/17 01/15/17 01/15/17 13:35 14:05 14:35 15:05 Pulse 62 60 58 66 Resp 23 22 19 16 B/P (MAP) 215/88 (130) 220/93 (135) 199/89 (125) 207/95 (132) Pulse Ox 97 O2 Delivery Room Air Room Air Room Air Room Air 01/15/17 01/15/17 01/15/17 01/15/17 15:30 16:00 16:30 16:45 Pulse 68 66 64 66 Resp 19 21 18 B/P (MAP) 198/88 (124) 195/82 (119) 198/89 (125) 215/120 O2 Delivery Room Air Room Air Room Air 01/15/17 01/15/17 01/15/17 01/15/17 17:00 17:45 18:13 18:45 Temp 98.2 98.2 Pulse 68 68 84 74 Resp 18 18 18 B/P (MAP) 199/80 (119) 195/75 (115) 160/80 196/51 (99) Pulse Ox 94 O2 Delivery Room Air Room Air Nasal Cannula O2 Flow Rate 2.0 01/15/17 01/15/17 01/15/17 01/15/17 19:17 19:30 19:31 20:41 Temp 97.6 97.6 Pulse 70 Resp 22 B/P (MAP) 179/61 (100) Pulse Ox 92 92 O2 Delivery Room Air Room Air Room Air Room Air O2 Flow Rate 2.0 01/15/17 01/15/17 01/15/17 01/15/17 20:51 22:10 22:21 22:55 Temp 98.8 98.8 Pulse 70 70 70 Resp 18 B/P (MAP) 179/61 170/57 (94) 170/57 Pulse Ox 96 O2 Delivery Nasal Cannula O2 Flow Rate 2.0 01/16/17 01/16/17 01/16/17 01/16/17 03:16 07:00 07:58 08:39 Temp 98.1 97.9 98.1 97.9 Pulse 66 69 71 Resp 18 18 B/P (MAP) 151/61 (91) 181/45 (90) 211/71 Pulse Ox 99 93 O2 Delivery Nasal Cannula Nasal Cannula Room Air O2 Flow Rate 3.0 3.0 01/16/17 01/16/17 01/16/17 01/16/17 08:39 08:58 10:02 10:03 Pulse 70 68 60 60 B/P (MAP) 211/71 190/61 153/63 153/63 01/16/17 11:00 Temp 98.0 98.0 Pulse 66 Resp 18 B/P (MAP) 116/41 (66) Pulse Ox 93 O2 Delivery Nasal Cannula O2 Flow Rate 3.0 Intake and Output 01/15/17 01/15/17 01/16/17 15:00 23:00 07:00 Intake Total 250 ml Output Total 50 ml Balance 200 ml TOBY KIMBALL MD Jan 16, 2017 13:31
[2017-01-16 15:00] VITALS: BP 178/47
[2017-01-16] MEDS ORDERED: POTASSIUM CHLORIDE 20 MEQ TABLET.ER. PO SCH (16:00)
[2017-01-16 19:24] VITALS: BP 168/52
[2017-01-16] MEDS: ATORVASTATIN CALCIUM 40 MG TABLET. PO SCH (20:54)
[2017-01-16] MEDS ORDERED: INSULIN DETEMIR 300 UNITS/3 ML INSULN.PEN. SQ SCH ×2 (21:00)
[2017-01-16 22:35] VITALS: BP 180/61
[2017-01-17 03:39] VITALS: BP 183/58
[2017-01-17 03:45] VITALS: BP 119/49
[2017-01-17 05:09] LABS: CALCIUM 9.2 mg/dL (8.5-10.1); CREATININE 1.5 mg/dL (0.6-1.0); POTASSIUM 3.4 mmol/L (3.5-5.1)
[2017-01-17] MEDS: LEVOTHYROXINE 50 MCG TABLET PO SCH (05:53)
[2017-01-17 07:00] VITALS: BP 126/64
[2017-01-17] MEDS: INSULIN ASPART 300 UNITS/3 ML INSULN.PEN SQ SCH ×4 (07:30→12:27)
[2017-01-17] MEDS ORDERED: POTASSIUM CHLORIDE 20 MEQ TABLET.ER. PO SCH (08:00)
[2017-01-17] MEDS ORDERED: amLODIPine BESYLATE 5 MG TABLET PO SCH (09:00)
[2017-01-17] MEDS ORDERED: amLODIPine BESYLATE 10 MG TABLET PO SCH (09:00)
[2017-01-17] MEDS: ASPIRIN ENTERIC COATED 81 MG TABLET.DR. PO SCH (09:46)
[2017-01-17] MEDS: METOPROLOL TART IMMED RELEASE 25 MG TABLET. PO SCH (09:47)
[2017-01-17] MEDS: LOSARTAN POTASSIUM 50 MG TABLET. PO SCH (09:47)
[2017-01-17] MEDS: guaiFENesin DM 200MG/20MG 10 ML SYRUP PO SCH ×2 (09:48→12:29)
[2017-01-17] MEDS: CHOLECALCIFEROL (VITAMIN D3) 1,000 UNIT TABLET PO SCH (09:48)
[2017-01-17] MEDS: CIPROFLOXACIN 0.3% OPHTH SOLUTION 5ML BOTTLE. OD SCH ×2 (09:48→12:29)
[2017-01-17] MEDS: FUROSEMIDE 40 MG/4 ML VIAL. IVP SCH (09:48)
[2017-01-17 11:00] VITALS: BP 127/80
--- NOTE | 2017-01-17 12:45 | PDOC ---
PROGRESS NOTES Subjective Subjective SEEN IN FOLLOW UP OF CKD3 AND HTN Objective Objective Vital Signs Date Time Temp Pulse Resp B/P (MAP) Pulse Ox O2 Delivery O2 Flow Rate FiO2 01/17/17 11:00 98.1 65 18 127/80 (96) 94 Nasal Cannula 2.0 98.1 Intake and Output 01/17/17 07:00 Intake Total 900 ml Output Total 1600 ml Balance -700 ml Intake Oral 900 ml Output Urine Total 1600 ml Physical Exam Abdomen: Normal bowel sounds, Soft, No tenderness, No hepatosplenomegaly, No masses Heart: Regular rate, Normal S1, Normal S2, No murmurs, Gallops Extremities: Other (1+ BLE EDEMA) General: Alert, Oriented X3, Cooperative, No acute distress Lungs: Clear to auscultation, Normal air movement Neck: Supple, No JVD, No thyromegaly Psych/Mental Status: Mental status NL, Mood NL Diagnosis HYPERTENSION: Accelerated hypertension RENAL FAILURE: Chronic (CKD stage III) Assessment Assessment Problems Medical Problems: (1) Severe protein-calorie malnutrition Status: Acute Plan Plan of [facility] WHEN PO LASIX ESTABLISHED. STABLE RENAL STATUS. DISCUSSED WITH PATIENT AND FAMILY Comment Review of Relevant I have reviewed the following items mary (where applicable) has been applied. Labs Laboratory Tests Test 01/15/17 13:45 01/15/17 14:50 01/15/17 17:04 01/15/17 20:57 White Blood Count 6.2 x10^3/uL (4.0-11.0) Red Blood Count 3.76 x10^6/uL (3.50-5.40) Hemoglobin 11.1 g/dL (12.0-15.5) Hematocrit 34.3 % (36.0-47.0) Mean Corpuscular Volume 91 fL (79-100) Mean Corpuscular Hemoglobin 30 pg (25-35) Mean Corpuscular Hemoglobin Concent 33 g/dL (31-37) Red Cell Distribution Width 14.4 % (11.5-14.5) Platelet Count 178 x10^3/uL (140-400) Neutrophils (%) (Auto) 76 % (31-73) Lymphocytes (%) (Auto) 15 % (24-48) Monocytes (%) (Auto) 6 % (0-9) Eosinophils (%) (Auto) 2 % (0-3) Basophils (%) (Auto) 1 % (0-3) Neutrophils # (Auto) 4.7 x10^3uL (1.8-7.7) Lymphocytes # (Auto) 0.9 x10^3/uL (1.0-4.8) Monocytes # (Auto) 0.4 x10^3/uL (0.0-1.1) Eosinophils # (Auto) 0.1 x10^3/uL (0.0-0.7) Basophils # (Auto) 0.0 x10^3/uL (0.0-0.2) Sodium Level 138 mmol/L (136-145) Potassium Level 4.1 mmol/L (3.5-5.1) Chloride Level 102 mmol/L (98-107) Carbon Dioxide Level 27 mmol/L (21-32) Anion Gap 9 (6-14) Blood Urea Nitrogen 14 mg/dL (7-20) Creatinine 1.4 mg/dL (0.6-1.0) Estimated GFR (Cockcroft-Gault) 35.7 BUN/Creatinine Ratio 10 (6-20) Glucose Level 176 mg/dL (70-99) Calcium Level 9.5 mg/dL (8.5-10.1) Total Bilirubin 0.4 mg/dL (0.2-1.0) Aspartate Amino Transf (AST/SGOT) 30 U/L (15-37) Alanine Aminotransferase (ALT/SGPT) 16 U/L (14-59) Alkaline Phosphatase 75 U/L (46-116) Creatine Kinase < 7 U/L (26-192) Creatine Kinase MB (Mass) 2.2 ng/mL (0.0-3.6) Creatine Kinase MB Relative Index % (0-4) Troponin I Quantitative 0.019 ng/mL (0.000-0.055) KX-[id number]-G-Type Natriuretic Peptide < 5 pg/mL (0-449) Total Protein 6.8 g/dL (6.4-8.2) Albumin 2.4 g/dL (3.4-5.0) Albumin/Globulin Ratio 0.5 (1.0-1.7) Urine Collection Type Unknown Urine Color Yellow Urine Clarity Clear Urine pH 7.0 Urine Specific [place] 1.020 Urine Protein >=300 mg/dL (NEG-TRACE) Urine Glucose (UA) 100 mg/dL (NEG) Urine Ketones (Stick) Negative mg/dL (NEG) Urine Blood Small (NEG) Urine Nitrite Negative (NEG) Urine Bilirubin Negative (NEG) Urine Urobilinogen Dipstick 0.2 mg/dL (0.2 mg/dL) Urine Leukocyte Esterase Negative (NEG) Urine RBC 6-10 /HPF (0-2) Urine WBC 1-4 /HPF (0-4) Urine Squamous Epithelial Cells Few /LPF Urine Bacteria Few /HPF (0-FEW) Urine Mucus Mod /LPF Glucose (Fingerstick) 192 mg/dL (70-99) 231 mg/dL (70-99) Test 01/17/17 04:00 Sodium Level 139 mmol/L (136-145) Potassium Level 3.4 mmol/L (3.5-5.1) Chloride Level 103 mmol/L (98-107) Carbon Dioxide Level 30 mmol/L (21-32) Anion Gap 6 (6-14) Blood Urea Nitrogen 17 mg/dL (7-20) Creatinine 1.5 mg/dL (0.6-1.0) Estimated GFR (Cockcroft-Gault) 33.0 Glucose Level 58 mg/dL (70-99) Calcium Level 9.2 mg/dL (8.5-10.1) Laboratory Tests Test 01/17/17 04:00 Sodium Level 139 mmol/L (136-145) Potassium Level 3.4 mmol/L (3.5-5.1) Chloride Level 103 mmol/L (98-107) Carbon Dioxide Level 30 mmol/L (21-32) Anion Gap 6 (6-14) Blood Urea Nitrogen 17 mg/dL (7-20) Creatinine 1.5 mg/dL (0.6-1.0) Estimated GFR (Cockcroft-Gault) 33.0 Glucose Level 58 mg/dL (70-99) Calcium Level 9.2 mg/dL (8.5-10.1) Medications Current Medications Hydralazine HCl (Apresoline) 10 mg 1X ONCE IVP Last administered on 01/15/17 16:45; Start 01/15/17 at 15:30; Stop 01/15/17 at 15:31; Status DC Atorvastatin Calcium (Lipitor) 40 mg QHS PO Last administered on 01/16/17 20: 54; Start 01/15/17 at 21:00 Guaifenesin (Robitussin Dm) 10 ml QID PO Last administered on 01/17/17 09:48; Start 01/15/17 at 17:00 Metoprolol Tartrate (Lopressor) 25 mg BID PO Last administered on 01/17/17 09: 47; Start 01/15/17 at 21:00 Albuterol Sulfate (Ventolin Neb Soln) 2.5 mg PRN Q4HRS PRN NEB SHORTNESS OF BREATH Last administered on 01/15/17 20:42; Start 01/15/17 at 17:00 Vitamin D (Vitamin D3) 2,000 unit DAILY PO Last administered on 01/17/17 09:48 ; Start 01/16/17 at 09:00 Insulin Detemir (Levemir) 8 units QHS SQ Last administered on 01/15/17 21:01; Start 01/15/17 at 21:00; Stop 01/16/17 at 09:18; Status DC Insulin Aspart (NovoLOG) 5 units TIDAC SQ Last administered on 01/17/17 12:27 ; Start 01/16/17 at 07:30 Insulin Aspart (NovoLOG) 0-5 UNITS TIDWMEALS SQ Last administered on 01/15/17 18:23; Start 01/15/17 at 17:00; Stop 01/16/17 at 09:18; Status DC Dextrose (Dextrose 50%-Water Syringe) 12.5 gm PRN Q15MIN PRN IV SEE COMMENTS; Start 01/15/17 at 17:00; Stop 01/16/17 at 09:57; Status DC Amlodipine Besylate (Norvasc) 2.5 mg DAILY PO Last administered on 01/16/17 08 :39; Start 01/15/17 at 17:00; Stop 01/16/17 at 09:26; Status DC Ciprofloxacin (Ciloxan Ophth) 1 drop QID OD Last administered on 01/17/17 12: 29; Start 01/15/17 at 19:00 Labetalol HCl (Normodyne) 20 mg PRN Q2HR PRN IVP HYPERTENSION, SEE COMMENTS; Start 01/15/17 at 20:15 Hydralazine HCl (Apresoline) 10 mg PRN Q4HRS PRN IVP ELEVATED BP, SEE COMMENTS Last administered on 01/16/17 08:58; Start 01/15/17 at 20:15 Amlodipine Besylate (Norvasc) 5 mg DAILY PO ; Start 01/17/17 at 09:00; Stop at 09:00; Status DC Aspirin (Ecotrin) 81 mg DAILY PO Last administered on 01/17/17 09:46; Start at 10:00 Levothyroxine Sodium (Synthroid) 50 mcg DAILY07 PO Last administered on 05:53; Start 01/16/17 at 10:30 Pioglitazone HCl (Actos) 30 mg DAILY PO Last administered on 01/16/17 10:02; Start 01/16/17 at 09:30; Stop 01/17/17 at 08:05; Status DC Insulin Detemir (Levemir) 12 units QHS SQ ; Start 01/16/17 at 21:00; Stop at 21:00; Status DC Insulin Aspart (NovoLOG) 0-9 UNITS TIDWMEALS SQ ; Start 01/16/17 at 12:00 Dextrose (Dextrose 50%-Water Syringe) 12.5 gm PRN Q15MIN PRN IV SEE COMMENTS; Start 01/16/17 at 09:15 Losartan Potassium (Cozaar) 50 mg DAILY PO Last administered on 01/17/17 09:47 ; Start 01/16/17 at 10:00 Furosemide (Lasix) 40 mg [id number] IVP Last administered on 01/16/17 10:05; Start 01/16/17 at 10:00; Stop 01/16/17 at 21:23; Status DC Insulin Detemir (Levemir) 10 units QHS SQ Last administered on 01/16/17 20:58 ; Start 01/16/17 at 21:00 Furosemide (Lasix) 40 mg [id number] IVP ; Start 01/16/17 at 10:00; Stop 01/16/17 at 10:00; Status DC Amlodipine Besylate (Norvasc) 10 mg DAILY PO Last administered on 01/17/17 09: 48; Start 01/17/17 at 09:00 Amlodipine Besylate (Norvasc) 5 mg 1X ONCE PO Last administered on 01/16/17 10:02; Start 01/16/17 at 09:45; Stop 01/16/17 at 09:47; Status DC Furosemide (Lasix) 40 mg DAILY IVP Last administered on 01/17/17 09:48; Start 01/16/17 at 16:00 Potassium Chloride (Klor-Con) 20 meq DAILYWBKFT PO ; Start 01/16/17 at 16:00; Stop 01/17/17 at 08:05; Status DC Potassium Chloride (Klor-Con) 40 meq DAILYWBKFT PO Last administered on 09:46; Start 01/17/17 at 08:00 Active Scripts Active Proair Hfa Inhaler (Albuterol Sulfate) 8.5 Gm Hfa.aer.ad 2 Puff INH PRN Q4-6HRS PRN Doxycycline Hyclate 100 Mg Tablet 100 Mg PO BID Guaifenesin Dm Syrup (Guaifenesin/Dextromethorphan) 5 Ml Syrup 10 Ml PO QID Metoprolol Tartrate 50 Mg Tablet 25 Mg PO BID Reported Aspir 81 (Aspirin) 81 Mg Tablet.dr 1 Tab PO DAILY Ginkgo Biloba (Ginkgo Biloba [place] Extract) 30 Mg Capsule Unknown Dose PO DAILY Amlodipine Besylate 5 Mg Tablet 5 Mg PO DAILY Levothyroxine Sodium 50 Mcg Tablet 1 Tab PO DAILY Losartan Potassium 100 Mg Tablet 100 Mg PO DAILY Actos (Pioglitazone Hcl) 30 Mg Tablet 1 Tab PO DAILY Atorvastatin Calcium 40 Mg Tablet 1 Tab PO QHS Humulin N (Nph, Human Insulin Isophane) 100 Unit/1 Ml Vial 8 Unit SQ QHS Humulin N (Nph, Human Insulin Isophane) 100 Unit/1 Ml Vial 6 Unit SQ DAILYAC Humulin R (Insulin Regular, Human) 100 Unit/1 Ml Vial 8 Unit IJ DAILYBFRSUP Vitamin D (Cholecalciferol (Vitamin D3)) 1,000 Unit Capsule 2 Cap PO DAILY Fish Oil 1,200 Mg Softgel ([place]-3S/Dha/Epa/Fish Oil) 1 Each Capsule Vitals/I & O Vital Sign - Last 24 Hours 01/16/17 01/16/17 01/16/17 01/16/17 15:00 19:24 20:00 20:55 Temp 97.8 97.9 97.8 97.9 Pulse 70 72 66 Resp 18 18 B/P (MAP) 178/47 (90) 168/52 (90) 116/49 Pulse Ox 94 90 O2 Delivery Nasal Cannula Room Air Nasal Cannula O2 Flow Rate 3.0 2.0 01/16/17 01/17/17 01/17/17 01/17/17 22:35 03:39 03:45 07:00 Temp 97.9 97.5 97.9 97.9 97.5 97.9 Pulse 66 67 65 69 Resp 16 16 18 B/P (MAP) 180/61 (100) 183/58 (99) 119/49 (72) 126/64 (84) Pulse Ox 97 91 95 O2 Delivery Nasal Cannula Room Air Nasal Cannula O2 Flow Rate 2.0 2.0 01/17/17 01/17/17 01/17/17 01/17/17 08:00 09:47 09:47 09:48 Pulse 69 69 69 B/P (MAP) 126/64 126/64 126/64 O2 Delivery Room Air 01/17/17 11:00 Temp 98.1 98.1 Pulse 65 Resp 18 B/P (MAP) 127/80 (96) Pulse Ox 94 O2 Delivery Nasal Cannula O2 Flow Rate 2.0 Intake and Output 01/16/17 01/16/17 01/17/17 15:00 23:00 07:00 Intake Total 0 ml 900 ml Output Total 300 ml 1300 ml Balance -300 ml -1300 ml 900 ml SUSAN SNYDER MD Jan 17, 2017 12:45
[2017-01-17] MEDS ORDERED: LOSA50TA6 PO (12:50)
[2017-01-17] MEDS ORDERED: FURO-68 PO (12:50)
--- NOTE | 2017-01-17 12:53 | PDOC3 ---
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 Final Diagnosis Problems Medical Problems: (1) Severe protein-calorie malnutrition Status: Acute Brief Hospital Course Allergies Allergies Coded Allergies Type Severity Reaction Last Updated Verified No Known Drug Allergies 01/15/17 No Vital Signs Vital Signs Date Time Temp Pulse Resp B/P (MAP) Pulse Ox O2 Delivery O2 Flow Rate FiO2 01/17/17 11:00 98.1 65 18 127/80 (96) 94 Nasal Cannula 2.0 98.1 Lab Results Laboratory Tests Test 01/15/17 13:45 01/15/17 14:50 01/15/17 17:04 01/15/17 20:57 White Blood Count 6.2 x10^3/uL (4.0-11.0) Red Blood Count 3.76 x10^6/uL (3.50-5.40) Hemoglobin 11.1 g/dL (12.0-15.5) Hematocrit 34.3 % (36.0-47.0) Mean Corpuscular Volume 91 fL (79-100) Mean Corpuscular Hemoglobin 30 pg (25-35) Mean Corpuscular Hemoglobin Concent 33 g/dL (31-37) Red Cell Distribution Width 14.4 % (11.5-14.5) Platelet Count 178 x10^3/uL (140-400) Neutrophils (%) (Auto) 76 % (31-73) Lymphocytes (%) (Auto) 15 % (24-48) Monocytes (%) (Auto) 6 % (0-9) Eosinophils (%) (Auto) 2 % (0-3) Basophils (%) (Auto) 1 % (0-3) Neutrophils # (Auto) 4.7 x10^3uL (1.8-7.7) Lymphocytes # (Auto) 0.9 x10^3/uL (1.0-4.8) Monocytes # (Auto) 0.4 x10^3/uL (0.0-1.1) Eosinophils # (Auto) 0.1 x10^3/uL (0.0-0.7) Basophils # (Auto) 0.0 x10^3/uL (0.0-0.2) Sodium Level 138 mmol/L (136-145) Potassium Level 4.1 mmol/L (3.5-5.1) Chloride Level 102 mmol/L (98-107) Carbon Dioxide Level 27 mmol/L (21-32) Anion Gap 9 (6-14) Blood Urea Nitrogen 14 mg/dL (7-20) Creatinine 1.4 mg/dL (0.6-1.0) Estimated GFR (Cockcroft-Gault) 35.7 BUN/Creatinine Ratio 10 (6-20) Glucose Level 176 mg/dL (70-99) Calcium Level 9.5 mg/dL (8.5-10.1) Total Bilirubin 0.4 mg/dL (0.2-1.0) Aspartate Amino Transf (AST/SGOT) 30 U/L (15-37) Alanine Aminotransferase (ALT/SGPT) 16 U/L (14-59) Alkaline Phosphatase 75 U/L (46-116) Creatine Kinase < 7 U/L (26-192) Creatine Kinase MB (Mass) 2.2 ng/mL (0.0-3.6) Creatine Kinase MB Relative Index % (0-4) Troponin I Quantitative 0.019 ng/mL (0.000-0.055) OC-Ovt-Z-Type Natriuretic Peptide < 5 pg/mL (0-449) Total Protein 6.8 g/dL (6.4-8.2) Albumin 2.4 g/dL (3.4-5.0) Albumin/Globulin Ratio 0.5 (1.0-1.7) Urine Collection Type Unknown Urine Color Yellow Urine Clarity Clear Urine pH 7.0 Urine Specific [place] 1.020 Urine Protein >=300 mg/dL (NEG-TRACE) Urine Glucose (UA) 100 mg/dL (NEG) Urine Ketones (Stick) Negative mg/dL (NEG) Urine Blood Small (NEG) Urine Nitrite Negative (NEG) Urine Bilirubin Negative (NEG) Urine Urobilinogen Dipstick 0.2 mg/dL (0.2 mg/dL) Urine Leukocyte Esterase Negative (NEG) Urine RBC 6-10 /HPF (0-2) Urine WBC 1-4 /HPF (0-4) Urine Squamous Epithelial Cells Few /LPF Urine Bacteria Few /HPF (0-FEW) Urine Mucus Mod /LPF Glucose (Fingerstick) 192 mg/dL (70-99) 231 mg/dL (70-99) Test 01/17/17 04:00 Sodium Level 139 mmol/L (136-145) Potassium Level 3.4 mmol/L (3.5-5.1) Chloride Level 103 mmol/L (98-107) Carbon Dioxide Level 30 mmol/L (21-32) Anion Gap 6 (6-14) Blood Urea Nitrogen 17 mg/dL (7-20) Creatinine 1.5 mg/dL (0.6-1.0) Estimated GFR (Cockcroft-Gault) 33.0 Glucose Level 58 mg/dL (70-99) Calcium Level 9.2 mg/dL (8.5-10.1) Laboratory Tests Test 01/17/17 04:00 Sodium Level 139 mmol/L (136-145) Potassium Level 3.4 mmol/L (3.5-5.1) Chloride Level 103 mmol/L (98-107) Carbon Dioxide Level 30 mmol/L (21-32) Anion Gap 6 (6-14) Blood Urea Nitrogen 17 mg/dL (7-20) Creatinine 1.5 mg/dL (0.6-1.0) Estimated GFR (Cockcroft-Gault) 33.0 Glucose Level 58 mg/dL (70-99) Calcium Level 9.2 mg/dL (8.5-10.1) Brief Hospital Course Ms. Piper is a 86 old female, lives at home with admitted for accelerated HTN and leg edema, Admitted to running out of lasix, did not know she could call her pCP, Treated on [facility] floor co managed with cards with diuresis, BEtter Does not neeed , has family that come in, RX for lasix given , Advised to stop home actos, can cause CHF, Has KCl scripts and supplements at home Dw family Pt seen and examined CArds consult Proc: none Discharge Information Condition at Discharge: Improved, Stable Disposition/Orders: D/C to Home Scheduled Amlodipine Besylate (Amlodipine Besylate), 5 MG PO DAILY, (Reported) Aspirin (Aspir 81), 1 TAB PO DAILY, (Reported) Atorvastatin Calcium (Atorvastatin Calcium), 1 TAB PO QHS, (Reported) Cholecalciferol (Vitamin D3) (Vitamin D), 2 CAP PO DAILY, (Reported) Doxycycline Hyclate (Doxycycline Hyclate), 100 MG PO BID Ginkgo Biloba Gypsy Extract (Ginkgo Biloba), Unknown Dose PO DAILY, (Reported) Guaifenesin/Dextromethorphan (Guaifenesin Dm Syrup), 10 ML PO QID Insulin Regular, Human (Humulin R), 8 UNIT IJ DAILYBFRSUP, (Reported) Levothyroxine Sodium (Levothyroxine Sodium), 1 TAB PO DAILY, (Reported) Losartan Potassium (Losartan Potassium), 100 MG PO DAILY, (Reported) Metoprolol Tartrate (Metoprolol Tartrate), 25 MG PO BID Nph, Human Insulin Isophane (Humulin N), 6 UNIT SQ DAILYAC, (Reported) Nph, Human Insulin Isophane (Humulin N), 8 UNIT SQ QHS, (Reported) Pioglitazone Hcl (Actos), 1 TAB PO DAILY, (Reported) Scheduled PRN Albuterol Sulfate (Proair Hfa Inhaler), 2 PUFF INH PRN Q4-6HRS PRN for SHORTNESS OF BREATH Miscellaneous Medications [place]-3S/Dha/Epa/Fish Oil (Fish Oil 1,200 Mg Softgel), (Reported) TOBY KIMBALL MD Jan 17, 2017 12:53
[2017-01-17 15:00] VITALS: BP 130/49
== END 2017-01-17 15:50 | disposition home or self-care (01) | DRG 291 ==
LOC: ER 12:50 → 2 NORTH 15:22
PROVIDERS: ADMIT Internal Medicine; ATTEND Internal Medicine
DX: I50.33 Acute on chronic diastolic (congestive) heart failure (principal); E43 Unspecified severe protein-calorie malnutrition; I13.0 Hypertensive heart and chronic kidney disease with heart failure and stage 1 through stage 4 chronic kidney disease, or unspecified chronic kidney disease; N18.4 Chronic kidney disease, stage 4 (severe); E03.9 Hypothyroidism, unspecified; E11.22 Type 2 diabetes mellitus with diabetic chronic kidney disease; E11.319 Type 2 diabetes mellitus with unspecified diabetic retinopathy without macular edema; E78.5 Hyperlipidemia, unspecified; I25.10 Atherosclerotic heart disease of native coronary artery without angina pectoris; I27.2 Other secondary pulmonary hypertension; M19.90 Unspecified osteoarthritis, unspecified site; Z66 Do not resuscitate; F41.9 Anxiety disorder, unspecified; E11.51 Type 2 diabetes mellitus with diabetic peripheral angiopathy without gangrene; Z79.4 Long term (current) use of insulin; Z79.82 Long term (current) use of aspirin; Z79.899 Other long term (current) drug therapy; Z83.3 Family history of diabetes mellitus; Z95.1 Presence of aortocoronary bypass graft; Z68.36 Body mass index [BMI] 36.0-36.9, adult
CPT/HCPCS: 36415; 71010; 80048; 80053; 81001; 82553; 82962; 83880; 84484; 85027; 93005; 93308; 93325; 94250; 94640; 94760; 96374; J0360; J1815; J1940; J7613; 97110; 99285-25

== ENCOUNTER → 2018-10-14 | Outpatient (CLI) | payer MEDICARE, OTHER ==
[~2018-10-14] MED LIST changes: +ALBU2.5V8 INH; +AMLO5TAB10 PO; -AMLO5TAB2 PO; +ASPI-482 PO; -BUME2TAB PO; +BUME2TAB3 PO; +FURO-68 PO; +FURO40TA4 PO; +GINK30CA PO; +LEVO50TA5 PO; +LOSA-73 PO; +LOSA100T14 PO; -LOSA100T6 PO; -METO50TA2 PO; +METO50TA6 PO; +OMEG-168; -OMEG1CAP61; -PIOG30TA3 PO; +PIOG30TA41 PO; +PIOG30TA62 PO; +POTA20TA82 PO; -PROAIR HFA8.5 GM INH
--- NOTE | 2018-10-14 17:18 | KCIC ---
CHEST PA LATERAL History: Shortness of breath. Open-heart surgery 2001.. COMPARISON: January 15, 2017 image without report The heart size is mildly enlarged in transverse diameter. Appearance is stable since prior exam of January 15, 2017. No evidence of pneumothorax. There is some pleural-based calcification in the right upper lung, similar to the previous exam. Some increased density in both lung bases is greater than prior study. Small pleural effusions. Dense aortic calcification. No evidence of pneumothorax. IMPRESSION: 1. Small pleural effusions. 2. Mild infiltrate or atelectasis in the lung bases. Electronically signed by: Ramakrishna Díaz MD (10/14/2018 5:15 PM) [id number]
== END | disposition home or self-care (01) ==
LOC: KCIC 10:08
PROVIDERS: ATTEND Nurse Practitioner Gerontology
DX: J90 Pleural effusion, not elsewhere classified (principal); I70.0 Atherosclerosis of aorta; I51.7 Cardiomegaly; Z98.890 Other specified postprocedural states
CPT/HCPCS: 71046